=== PATIENT | female | born 1940 | race Caucasian/White ===

== ENCOUNTER → 2016-03-07 | Outpatient (CLI) | payer MEDICARE, OTHER ==
[~2016-03-07] MED LIST: ACET500C PO; ALEN70TA39 PO; ASPI81TA60 PO; ATEN25TA PO; AUGM500T34 PO; CALC600T10 PO; IBUPOTC PO; LEVO50TA45 PO; MULTCHW13 PO; PRIM50TA6 PO; QUET1TAB7 PO; SIMV20TA2 PO; SYNT50TA PO; VIAC8.5C PO; VICO5TAB16 PO; VITA100037 PO; VITMTA PO
--- NOTE | 2016-03-08 11:11 | REP ---
Left rib series and PA chest: There are no comparisons. Left rib series four views: There is no rib fracture or other rib abnormality. PA chest: There are no comparisons. There is no pneumothorax, hemothorax or pulmonary contusion. There are no infiltrates or effusions. The lung bone are clear. Cardiac size is normal. The surya and mediastinum are unremarkable. There is diffuse demineralization. There is thoracic scoliosis convex right at the thoracolumbar junction. Impression: No acute cardiopulmonary findings. Signed by Jaleel Greenwood MD 03/07/2016 10:33 A
== END ==
LOC: M ADAMS 09:52
PROVIDERS: ATTEND Physician Assistant Medical
DX: S20.212A Contusion of left front wall of thorax, initial encounter (principal); X58.XXXA Exposure to other specified factors, initial encounter; Y93.9 Activity, unspecified; Y92.9 Unspecified place or not applicable; Y99.8 Other external cause status

== ENCOUNTER → 2016-04-08 | Outpatient (REF) | payer MEDICARE, OTHER | LOC: M LAB REF 10:31 | PROVIDERS: ATTEND Ophthalmology | DX: S01.102A Unspecified open wound of left eyelid and periocular area, initial encounter (principal); X58.XXXA Exposure to other specified factors, initial encounter; Y93.9 Activity, unspecified; Y92.9 Unspecified place or not applicable; Y99.8 Other external cause status ==

== ENCOUNTER → 2016-04-13 | Outpatient (REF) | payer MEDICARE, OTHER ==
[2016-04-13 13:06] LABS: ALBUMIN 3.7 GM/DL (3.2-5.2); ALBUMIN/GLOBULIN RATIO 1.12 (1.00-1.93); ALKALINE PHOSPHATASE 87 U/L (45-117); ALT/SGPT 22 U/L (12-78); ANION GAP 11 MEQ/L (8-16); AST/SGOT 23 U/L (15-37); BILIRUBIN,TOTAL 0.3 MG/DL (0.2-1.0); BLOOD UREA NITROGEN 17 MG/DL (7-18); CALCIUM LEVEL 9.1 MG/DL (8.8-10.2); CARBON DIOXIDE LEVEL 28 MEQ/L (21-32); CHLORIDE LEVEL 105 MEQ/L (98-107); CHOLESTEROL LEVEL 170 MG/DL (<200); CREATININE FOR GFR 0.76 MG/DL (0.55-1.02); GLOMERULAR FILTRATION RATE > 60.0 (>39); GLUCOSE, FASTING 99 MG/DL (83-110); POTASSIUM SERUM 4.3 MEQ/L (3.5-5.1); SODIUM LEVEL 144 MEQ/L (136-145); TRIGLYCERIDES LEVEL 96 MG/DL (<150)
== END ==
LOC: M SFHCADAM 08:32
PROVIDERS: ATTEND Physician Assistant Medical
DX: E78.4 Other hyperlipidemia (principal); R73.01 Impaired fasting glucose; E03.9 Hypothyroidism, unspecified

== ENCOUNTER → 2016-06-08 | Outpatient (REF) | payer MEDICARE, OTHER | LOC: M LAB REF 14:30 | PROVIDERS: ATTEND Ophthalmology | DX: H02.831 Dermatochalasis of right upper eyelid (principal); H02.834 Dermatochalasis of left upper eyelid ==

== ENCOUNTER → 2016-07-12 | Outpatient (REF) | payer MEDICARE, OTHER ==
[2016-07-12 14:25] LABS: FREE T4 1.11 NG/DL (0.76-1.46)
== END ==
LOC: M LABDRWAD 12:41
PROVIDERS: ATTEND Internal Medicine Endocrinology, Diabetes & Metabolism
DX: E03.9 Hypothyroidism, unspecified (principal)

== ENCOUNTER → 2016-08-09 | Outpatient (CLI) | payer MEDICARE, OTHER ==
[~2016-08-09] MED LIST changes: -CALC600T10 PO; +CALC600T31 PO; -MULTCHW13 PO; +MULTCHW14 PO; -VITA100037 PO; +VITA100067 PO
[2016-08-09 13:09] LABS: CALCIUM LEVEL 9.3 MG/DL (8.8-10.2)
== END ==
LOC: M WUC 09:38
PROVIDERS: ATTEND Internal Medicine Endocrinology, Diabetes & Metabolism
DX: M81.0 Age-related osteoporosis without current pathological fracture (principal); E55.9 Vitamin D deficiency, unspecified

== ENCOUNTER → 2016-12-20 | Outpatient (REF) | payer MEDICARE, OTHER ==
[2016-12-20 21:33] LABS: BASO % 0.7 % (0.0-1.0); EOS # 0.1 10^3/uL (0.0-0.50); IMMATURE GRANULOCYTE % 0.2 % (0-0); LYMPH # 1.7 10^3/uL (1.5-4.5); LYMPH % 29.8 % (24.0-44.0); MEAN CORPUSCULAR HEMOGLOBIN 31.5 pg (27.0-33.0); MEAN CORPUSCULAR HGB CONC 32.3 g/dl (32.0-36.5); MEAN CORPUSCULAR VOLUME 97.6 fl (80.0-96.0); MONO # 0.3 10^3/uL (0.0-0.8); MONO % 5.5 % (0.0-5.0); NEUTROPHILS # 3.6 10^3/uL (1.8-7.7); NEUTROPHILS % 62.8 % (36.0-66.0); PLATELET COUNT, AUTOMATED 274 10^3/uL (150-450); RED CELL DISTRIBUTION WIDTH 13.2 % (11.5-14.5); WHITE BLOOD COUNT 5.8 10^3/uL (4.0-10.0)
[2016-12-20 21:36] LABS: ALBUMIN 4.1 GM/DL (3.2-5.2); ALBUMIN/GLOBULIN RATIO 1.24 (1.00-1.93); ALKALINE PHOSPHATASE 79 U/L (45-117); ALT/SGPT 26 U/L (12-78); ANION GAP 4 MEQ/L (8-16); AST/SGOT 24 U/L (7-37); BILIRUBIN,TOTAL 0.3 MG/DL (0.2-1.0); BLOOD UREA NITROGEN 23 MG/DL (7-18); CALCIUM LEVEL 9.6 MG/DL (8.8-10.2); CARBON DIOXIDE LEVEL 31 MEQ/L (21-32); CHLORIDE LEVEL 107 MEQ/L (98-107); CREATININE FOR GFR 0.61 MG/DL (0.55-1.02); GLOMERULAR FILTRATION RATE > 60.0 (>39); GLUCOSE, FASTING 102 MG/DL (83-110); POTASSIUM SERUM 4.6 MEQ/L (3.5-5.1); SODIUM LEVEL 142 MEQ/L (136-145); TOTAL PROTEIN 7.4 GM/DL (6.4-8.2)
== END ==
LOC: M LAB REF 09:40
PROVIDERS: ATTEND Psychiatry & Neurology Neurology
DX: G25.0 Essential tremor (principal)

== ENCOUNTER → 2016-12-21 | Outpatient (REF) | payer MEDICARE, OTHER | LOC: M LAB REF 10:02 | PROVIDERS: ATTEND Internal Medicine Medical Oncology | DX: D47.2 Monoclonal gammopathy (principal); E83.52 Hypercalcemia ==

== ENCOUNTER → 2017-01-11 | Outpatient (REF) | payer MEDICARE, OTHER ==
[2017-01-11 12:35] LABS: BASO % 0.8 % (0.0-1.0); EOS # 0.1 10^3/uL (0.0-0.50); EOS % 1.2 % (0.0-3.0); IMMATURE GRANULOCYTE % 0.2 % (0-0); LYMPH # 2.2 10^3/uL (1.5-4.5); LYMPH % 42.9 % (24.0-44.0); MEAN CORPUSCULAR HEMOGLOBIN 31.5 pg (27.0-33.0); MEAN CORPUSCULAR HGB CONC 33.1 g/dl (32.0-36.5); MEAN CORPUSCULAR VOLUME 95.1 fl (80.0-96.0); MONO # 0.3 10^3/uL (0.0-0.8); MONO % 4.9 % (0.0-5.0); NEUTROPHILS # 2.6 10^3/uL (1.8-7.7); PLATELET COUNT, AUTOMATED 265 10^3/uL (150-450); RED CELL DISTRIBUTION WIDTH 12.4 % (11.5-14.5); WHITE BLOOD COUNT 5.2 10^3/uL (4.0-10.0)
[2017-01-11 13:12] LABS: ALBUMIN 3.9 GM/DL (3.2-5.2); ALBUMIN/GLOBULIN RATIO 1.11 (1.00-1.93); ALKALINE PHOSPHATASE 83 U/L (45-117); ALT/SGPT 25 U/L (12-78); ANION GAP 6 MEQ/L (8-16); AST/SGOT 25 U/L (7-37); BILIRUBIN,TOTAL 0.2 MG/DL (0.2-1.0); BLOOD UREA NITROGEN 23 MG/DL (7-18); CALCIUM LEVEL 9.5 MG/DL (8.8-10.2); CARBON DIOXIDE LEVEL 32 MEQ/L (21-32); CHLORIDE LEVEL 107 MEQ/L (98-107); CHOLESTEROL LEVEL 209 MG/DL (<200); CREATININE FOR GFR 0.66 MG/DL (0.55-1.02); FREE T4 0.96 NG/DL (0.76-1.46); GLOMERULAR FILTRATION RATE > 60.0 (>39); GLUCOSE, FASTING 95 MG/DL (83-110); POTASSIUM SERUM 4.3 MEQ/L (3.5-5.1); SODIUM LEVEL 145 MEQ/L (136-145); TOTAL PROTEIN 7.4 GM/DL (6.4-8.2); TRIGLYCERIDES LEVEL 89 MG/DL (<150)
== END ==
LOC: M SFHCADAM 09:46
PROVIDERS: ATTEND Physician Assistant Medical
DX: M81.0 Age-related osteoporosis without current pathological fracture (principal); E03.9 Hypothyroidism, unspecified; E78.4 Other hyperlipidemia; R73.01 Impaired fasting glucose

== ENCOUNTER → 2017-02-17 | Outpatient (REF) | payer MEDICARE, OTHER ==
[2017-02-17 15:36] LABS: CALCIUM LEVEL 9.3 MG/DL (8.8-10.2)
== END ==
LOC: M LABDRAW1 15:17
DX: M81.0 Age-related osteoporosis without current pathological fracture (principal)
CPT/HCPCS: 82310

== ENCOUNTER → 2017-06-27 | Outpatient (REF) | payer MEDICARE, OTHER ==
[2017-06-27 14:00] LABS: FREE T4 1.15 NG/DL (0.76-1.46)
== END ==
LOC: M LABDRWAD 13:08
DX: E03.9 Hypothyroidism, unspecified (principal)
CPT/HCPCS: 84443

== ENCOUNTER → 2017-08-11 | Outpatient (REF) | payer MEDICARE, OTHER ==
[2017-08-11 19:39] LABS: ALBUMIN 3.8 GM/DL (3.2-5.2); ALBUMIN/GLOBULIN RATIO 1.27 (1.00-1.93); ALKALINE PHOSPHATASE 71 U/L (45-117); ALT/SGPT 21 U/L (12-78); ANION GAP 10 MEQ/L (8-16); AST/SGOT 21 U/L (7-37); BILIRUBIN,TOTAL 0.3 MG/DL (0.2-1.0); BLOOD UREA NITROGEN 17 MG/DL (7-18); CALCIUM LEVEL 8.9 MG/DL (8.8-10.2); CARBON DIOXIDE LEVEL 26 MEQ/L (21-32); CHLORIDE LEVEL 108 MEQ/L (98-107); CREATININE FOR GFR 0.69 MG/DL (0.55-1.30); FREE T4 1.17 NG/DL (0.76-1.46); GLOMERULAR FILTRATION RATE > 60.0 (>39); GLUCOSE, FASTING 90 MG/DL (70-100); POTASSIUM SERUM 4.1 MEQ/L (3.5-5.1); SODIUM LEVEL 144 MEQ/L (136-145); THYROID STIMULATING HORMONE 0.905 uIU/ML (0.358-3.740); TOTAL PROTEIN 6.8 GM/DL (6.4-8.2)
[2017-08-11 19:52] LABS: ESTIMATED AVERAGE GLUCOSE 103 MG/DL (60-110); HEMOGLOBIN A1c 5.2 %
[2017-08-11 19:56] LABS: TOTAL 25(OH) VITAMIN D 50.4 NG/ML (30.0-100.0)
== END ==
LOC: M SFHCADAM 13:17
DX: E03.9 Hypothyroidism, unspecified (principal); R73.01 Impaired fasting glucose; Z79.899 Other long term (current) drug therapy
CPT/HCPCS: 84443

== ENCOUNTER → 2017-08-18 | Outpatient (REF) | payer MEDICARE, OTHER ==
[2017-08-18 16:29] LABS: TOTAL 25(OH) VITAMIN D 55.5 NG/ML (30.0-100.0)
[2017-08-19 13:12] LABS: CALCIUM LEVEL 8.9 MG/DL (8.8-10.2)
== END ==
LOC: M LABDRAW1 15:31
DX: M81.0 Age-related osteoporosis without current pathological fracture (principal); E55.9 Vitamin D deficiency, unspecified
CPT/HCPCS: 82310

== ENCOUNTER → 2017-09-13 | Outpatient (CLI) | payer MEDICARE, OTHER ==
[2017-09-13 11:05] LABS: BASO % 0.7 % (0.0-1.0); EOS # 0.1 10^3/uL (0.0-0.50); EOS % 1.7 % (0.0-3.0); HEMATOCRIT 38.8 % (36.0-47.0); HEMOGLOBIN 12.9 g/dl (12.0-15.5); IMMATURE GRANULOCYTE % 0.2 % (0-3.0); LYMPH # 1.9 10^3/uL (1.5-4.5); LYMPH % 35.4 % (24.0-44.0); MEAN CORPUSCULAR HEMOGLOBIN 31.2 pg (27.0-33.0); MEAN CORPUSCULAR HGB CONC 33.2 g/dl (32.0-36.5); MEAN CORPUSCULAR VOLUME 93.7 fl (80.0-96.0); MONO # 0.3 10^3/uL (0.0-0.8); MONO % 5.2 % (0.0-5.0); NEUTROPHILS # 3.1 10^3/uL (1.8-7.7); NEUTROPHILS % 56.8 % (36.0-66.0); PLATELET COUNT, AUTOMATED 249 10^3/uL (150-450); RED BLOOD COUNT 4.14 10^6/uL (4.00-5.40); RED CELL DISTRIBUTION WIDTH 12.3 % (11.5-14.5); WHITE BLOOD COUNT 5.4 10^3/uL (4.0-10.0)
[2017-09-13 11:28] LABS: TOTAL PROTEIN,RANDOM URINE 12.4 MG/DL (0.0-12.0); URINE TOTAL PROTEIN 12.4 MG/DL (0-12)
[2017-09-13 12:04] LABS: ALBUMIN 3.9 GM/DL (3.2-5.2); ALKALINE PHOSPHATASE 71 U/L (45-117); ALT/SGPT 21 U/L (12-78); ANION GAP 7 MEQ/L (8-16); AST/SGOT 20 U/L (7-37); BILIRUBIN,TOTAL 0.3 MG/DL (0.2-1.0); BLOOD UREA NITROGEN 18 MG/DL (7-18); CALCIUM LEVEL 8.4 MG/DL (8.8-10.2); CARBON DIOXIDE LEVEL 28 MEQ/L (21-32); CHLORIDE LEVEL 108 MEQ/L (98-107); CREATININE FOR GFR 0.66 MG/DL (0.55-1.30); GLOMERULAR FILTRATION RATE > 60.0 (>39); GLUCOSE, FASTING 95 MG/DL (70-100); IMMUNOGLOBULIN A 54.2 MG/DL (70-400); IMMUNOGLOBULIN G 921 MG/DL (681-1648); SODIUM LEVEL 143 MEQ/L (136-145); TOTAL PROTEIN 6.9 GM/DL (6.4-8.2)
[2017-09-14 12:01] LABS: ALBUMIN 4.27 GM/DL (3.29-5.55); ALBUMIN % 61.9 % (55.8-66.1); ALPHA-1-GLOBULIN % 4.1 % (2.9-4.9); ALPHA-1-GLOBULINS 0.28 GM/DL (0.17-0.41); ALPHA-2-GLOBULINS % 11.1 % (7.1-11.8); BETA-1-GLOBULINS % 5.6 % (4.7-7.2); BETA-2-GLOBULINS % 3.8 % (3.2-6.5); GAMMA GLOBULIN % 13.5 % (11.1-18.8)
[2017-09-14 12:02] LABS: ALPHA-2-GLOBULINS 0.77 GM/DL (0.42-0.99); BETA-1-GLOBULINS 0.39 GM/DL (0.28-0.60); BETA-2-GLOBULINS 0.26 GM/DL (0.19-0.55); GAMMA GLOBULINS 0.93 GM/DL (0.65-1.58)
[2017-09-15 00:13] LABS: FREE KAPPA LIGHT CHAINS SERUM 10.6 mg/L (3.3-19.4); FREE LAMBDA LIGHT CHAINS SERUM 40.6 mg/L (5.7-26.3); KAPPA/LAMBDA RATIO SERUM 0.26 (0.26-1.65)
[2017-09-15 15:02] LABS: UPEP INTERPRETATION M-SPIKE IN B2 & GAMM; URINE VOLUME 1000 ML
[2017-09-15 15:07] LABS: IMMUNOTYPE URINE IgG ABNORMAL (NORMAL); IMMUNOTYPE URINE LAMBDA ABNORMAL (NORMAL)
== END ==
LOC: M LAB 09:44
DX: C90.00 Multiple myeloma not having achieved remission (principal)
CPT/HCPCS: 84165

== ENCOUNTER → 2017-10-14 | Outpatient (REF) | payer MEDICARE, OTHER ==
[2017-10-14 21:53] LABS: VITAMIN B12 LEVEL 654 PG/ML (247-911)
== END ==
LOC: M SFHCADAM 13:31
DX: R20.2 Paresthesia of skin (principal)
CPT/HCPCS: 82607

== ENCOUNTER → 2018-01-09 | Outpatient (REF) | payer MEDICARE, OTHER ==
[2018-01-09 14:32] LABS: FREE T4 1.14 NG/DL (0.76-1.46)
== END ==
LOC: M LABDRWAD 12:26
DX: E03.9 Hypothyroidism, unspecified (principal)
CPT/HCPCS: 84443

== ENCOUNTER → 2018-02-20 | Outpatient (REF) | payer MEDICARE, OTHER ==
[~2018-02-20] MED LIST changes: -ALEN70TA39 PO; +ALEN70TA57 PO
[2018-02-20 12:55] LABS: CALCIUM LEVEL 9.7 MG/DL (8.8-10.2)
[2018-02-20 13:11] LABS: TOTAL 25(OH) VITAMIN D 73.5 NG/ML (30.0-100.0)
== END ==
LOC: M LABDRAW1 10:34
PROVIDERS: ATTEND Internal Medicine Endocrinology, Diabetes & Metabolism
DX: M81.0 Age-related osteoporosis without current pathological fracture (principal); E55.9 Vitamin D deficiency, unspecified

== ENCOUNTER → 2018-07-21 | Outpatient (REF) | payer MEDICARE, OTHER ==
[~2018-07-21] MED LIST changes: -ALEN70TA57 PO; +ALEN70TA74 PO; -VICO5TAB16 PO; +VICO5TAB17 PO
[2018-07-21 16:23] LABS: FREE T4 0.99 NG/DL (0.76-1.46); THYROID STIMULATING HORMONE 1.05 uIU/ML (0.358-3.740)
== END ==
LOC: M LABDRWAD 15:25
PROVIDERS: ATTEND Internal Medicine Endocrinology, Diabetes & Metabolism
DX: E03.9 Hypothyroidism, unspecified (principal)
CPT/HCPCS: 84439; 84443; G0463

== ENCOUNTER → 2018-08-16 | Outpatient (CLI) | payer MEDICARE, OTHER ==
[~2018-08-16] MED LIST changes: -VIAC8.5C PO; +VIACTIV 500-5001 CHW PO
--- NOTE | 2018-08-16 16:44 | REP ---
Maxillofacial CT study without contrast: History: Arthralgia of the TMJ. Left-sided symptoms. No comparison imaging. Findings: No bony destructive lesion is seen in the mandible or maxilla. There are osteoarthritic changes with joint space narrowing in the superior and posterior aspects of the temporomandibular joints bilaterally. No cystic changes or erosive changes are seen. 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 The maxillary ethmoidal, sphenoidal and frontal sinuses are clear. Mastoid aeration is normal and symmetric. No intraorbital abnormality is seen. There is mild generalized volume loss intracranially. Impression: Mild osteoarthritic changes at the temporomandibular joints bilaterally. No erosive or bony destructive lesion is seen. Electronically Signed by Catalino Cerna MD 08/16/2018 04:36 P
== END ==
LOC: M RAD 15:33
PROVIDERS: ATTEND Otolaryngology
DX: M26.622 Arthralgia of left temporomandibular joint (principal)

== ENCOUNTER → 2018-08-29 | Outpatient (REF) | payer MEDICARE, OTHER | LOC: M LABDRWAD 09:18 | PROVIDERS: ATTEND Nurse Practitioner Family | DX: M81.0 Age-related osteoporosis without current pathological fracture (principal) ==

== ENCOUNTER → 2018-09-04 | Outpatient (REF) | payer MEDICARE, OTHER ==
[~2018-09-04] MED LIST changes: +ASPI81CH17 PO; +CALCTAB7 PO; +MOBI15TA PO
[2018-09-04 19:16] LABS: BASO % 0.6 % (0.0-1.0); EOS # 0.1 10^3/uL (0.0-0.50); EOS % 1.5 % (0.0-3.0); HEMATOCRIT 39.5 % (36.0-47.0); HEMOGLOBIN 13.2 g/dl (12.0-15.5); LYMPH # 2.1 10^3/uL (1.5-4.5); LYMPH % 38.7 % (24.0-44.0); MEAN CORPUSCULAR HEMOGLOBIN 31.2 pg (27.0-33.0); MEAN CORPUSCULAR HGB CONC 33.4 g/dl (32.0-36.5); MEAN CORPUSCULAR VOLUME 93.4 fl (80.0-96.0); MONO # 0.4 10^3/uL (0.0-0.8); MONO % 6.8 % (0.0-5.0); NEUTROPHILS # 2.8 10^3/uL (1.8-7.7); NEUTROPHILS % 52.2 % (36.0-66.0); PLATELET COUNT, AUTOMATED 308 10^3/uL (150-450); RED BLOOD COUNT 4.23 10^6/uL (4.00-5.40); WHITE BLOOD COUNT 5.3 10^3/uL (4.0-10.0)
[2018-09-04 19:37] LABS: HEMOGLOBIN A1c 5.8 %
[2018-09-04 19:46] LABS: ALBUMIN 3.9 GM/DL (3.2-5.2); ALT/SGPT 17 U/L (12-78); BILIRUBIN,TOTAL 0.2 MG/DL (0.2-1.0); BLOOD UREA NITROGEN 15 MG/DL (7-18); CALCIUM LEVEL 8.8 MG/DL (8.8-10.2); CARBON DIOXIDE LEVEL 27 MEQ/L (21-32); CHLORIDE LEVEL 109 MEQ/L (98-107); CHOLESTEROL LEVEL 207 MG/DL (<200); CHOLESTEROL RISK RATIO 2.797 (<5); CREATININE FOR GFR 0.78 MG/DL (0.55-1.30); FREE T4 1.18 NG/DL (0.76-1.46); GLOMERULAR FILTRATION RATE > 60.0 (>39); GLUCOSE, FASTING 90 MG/DL (70-100); HDL CHOLESTEROL 74 MG/DL (>40); LDL CHOLESTEROL 109 MG/DL (<100); NON-HDL-C 133 MG/DL; POTASSIUM SERUM 4.2 MEQ/L (3.5-5.1); SODIUM LEVEL 143 MEQ/L (136-145); TOTAL PROTEIN 7.1 GM/DL (6.4-8.2); TRIGLYCERIDES LEVEL 120 MG/DL (<150)
== END ==
LOC: M SFHCADAM 15:51
PROVIDERS: ATTEND Physician Assistant Medical
DX: E03.9 Hypothyroidism, unspecified (principal); R73.01 Impaired fasting glucose; E78.49 Other hyperlipidemia
CPT/HCPCS: 80053; 80061; 83036; 84439; 84443; 85025; G0463

== ENCOUNTER → 2018-09-15 | Outpatient (CLI) | payer MEDICARE, OTHER ==
[~2018-09-15] MED LIST changes: +MACR100C43 PO; -SIMV20TA2 PO; +SIMV20TA22 PO
--- NOTE | 2018-09-15 15:53 | REP ---
RENAL AND BLADDER ULTRASOUND: Real-time sonographic evaluation of kidneys was performed and demonstrates both kidneys to be normal in size with somewhat increased echotexture suggesting medical renal disease. There is no hydronephrosis bilaterally. Right kidney measures 10.2 x 4.3 x 4.5 cm and left kidney 10.0 x 4.6 x 4.4 cm. There are approximately 4 small cysts in the lower aspect of the right kidney, largest measures 1.3 cm in diameter. There is a 4 mm cyst in the upper left kidney. Two subcentimeter cysts are seen in the lower left kidney, the larger 9 mm in diameter. There appears to be a 4 mm intrarenal calculus in the lower left kidney. Urinary bladder is not well distended and not well evaluated. IMPRESSION: Increased echotexture of the kidneys suggest medical renal disease. No hydronephrosis. Bilateral renal cysts. Left renal calculus. Electronically Signed by Jaleel Benites MD 09/18/2018 11:18 A
== END ==
LOC: M RAD 09:19
PROVIDERS: ATTEND Physician Assistant Medical
DX: N20.0 Calculus of kidney (principal); N28.1 Cyst of kidney, acquired

== ENCOUNTER → 2018-09-18 | Outpatient (REF) | payer MEDICARE, OTHER ==
[~2018-09-18] MED LIST changes: -ASPI81CH17 PO; -CALCTAB7 PO; -MACR100C43 PO; -MOBI15TA PO; +SIMV20TA2 PO; -SIMV20TA22 PO
[2018-09-18 13:46] LABS: HEMATOCRIT 40.8 % (36.0-47.0); HEMOGLOBIN 13.6 g/dl (12.0-15.5); MEAN CORPUSCULAR HEMOGLOBIN 31.3 pg (27.0-33.0); MEAN CORPUSCULAR HGB CONC 33.3 g/dl (32.0-36.5); MEAN CORPUSCULAR VOLUME 93.8 fl (80.0-96.0); PLATELET COUNT, AUTOMATED 277 10^3/uL (150-450); RED BLOOD COUNT 4.35 10^6/uL (4.00-5.40); WHITE BLOOD COUNT 4.5 10^3/uL (4.0-10.0)
[2018-09-18 16:17] LABS: ALBUMIN 3.8 GM/DL (3.2-5.2); ALT/SGPT 16 U/L (12-78); BILIRUBIN,TOTAL 0.2 MG/DL (0.2-1.0); BLOOD UREA NITROGEN 16 MG/DL (7-18); CARBON DIOXIDE LEVEL 29 MEQ/L (21-32); CHLORIDE LEVEL 107 MEQ/L (98-107); CREATININE FOR GFR 0.66 MG/DL (0.55-1.30); GLOMERULAR FILTRATION RATE > 60.0 (>39); GLUCOSE, FASTING 101 MG/DL (70-100); IMMUNOGLOBULIN A 49.4 MG/DL (70-400); IMMUNOGLOBULIN E 3.7 IU/ML (<100); IMMUNOGLOBULIN G 975 MG/DL (681-1648); IMMUNOGLOBULIN M 20.9 MG/DL (40-230); POTASSIUM SERUM 4.3 MEQ/L (3.5-5.1); SODIUM LEVEL 142 MEQ/L (136-145); TOTAL PROTEIN 6.7 GM/DL (6.4-8.2)
[2018-09-19 14:36] LABS: ALBUMIN 4.01 GM/DL (3.29-5.55); ALBUMIN % 59.9 % (55.8-66.1); ALPHA-1-GLOBULIN % 4.5 % (2.9-4.9); ALPHA-2-GLOBULINS 0.79 GM/DL (0.42-0.99); ALPHA-2-GLOBULINS % 11.8 % (7.1-11.8); BETA-1-GLOBULINS % 5.9 % (4.7-7.2); BETA-2-GLOBULINS % 4.4 % (3.2-6.5); GAMMA GLOBULIN % 13.5 % (11.1-18.8)
[2018-09-19 14:37] LABS: BETA-2-GLOBULINS 0.29 GM/DL (0.19-0.55)
[2018-09-20 00:09] LABS: FREE LAMBDA LIGHT CHAINS SERUM 72.2 mg/L (5.7-26.3); KAPPA/LAMBDA RATIO SERUM 0.18 (0.26-1.65)
== END ==
LOC: M LAB 11:32
PROVIDERS: ATTEND Internal Medicine Medical Oncology
DX: Z00.00 Encounter for general adult medical examination without abnormal findings (principal)

== ENCOUNTER → 2018-09-18 | Outpatient (CLI) | payer MEDICARE, OTHER | LOC: M LAB 10:38 | PROVIDERS: ATTEND Physician Assistant Medical | DX: E03.9 Hypothyroidism, unspecified (principal); E78.5 Hyperlipidemia, unspecified; R73.01 Impaired fasting glucose ==

== ENCOUNTER → 2018-11-08 | Outpatient (CLI) | payer MEDICARE, OTHER ==
[~2018-11-08] MED LIST changes: +ASPI81CH17 PO; +CALCTAB7 PO; +MACR100C43 PO; +MOBI15TA PO
--- NOTE | 2018-11-08 13:56 | REPMRS ---
Patient History The patient states she has not had a clinical breast exam in over a year. Family history of breast cancer at age 70 in mother, breast cancer at age 80 in maternal aunt, breast cancer at age 50 or over in paternal aunt, breast cancer at age 50 or over in maternal cousin. Took hormonal contraceptives for 2 years. 3D TOMOSYNTHESIS WAS PERFORMED. [facility] lifetime risk for breast cancer is 10.3%. Digital Woman Screen Mammo: November 08, 2018 - Exam #: [id number] Bilateral CC and MLO view(s) were taken. Technologist: Shalini Moralez, Technologist Prior study comparison: July 09, 2013, bilateral bilat screen digital mammo, performed at [facility] ([facility]). July 06, 2012, bilateral bilat screen digital mammo, performed at [facility] ([facility]). FINDINGS: The breast tissue is heterogeneously dense. This may lower the sensitivity of mammography. There has been no change in the appearance of the mammogram from the prior studies. There is a moderate amount of residual fibroglandular tissue which is fairly symmetric. There is no interval development of dominant mass, areas of architectural distortion, or clustered microcalcification typical of malignancy. Assessment: BI-RADS/ACR category 1 mammogram. Negative Mammogram. Recommendation Routine screening mammogram in 1 year (for women over age 40). This mammogram was interpreted with the aid of an FDA-approved computer-aided dectection system. Electronically Signed By: Jaleel Benites MD 11/08/18 [id number]
--- NOTE | 2018-11-10 14:18 | DEXA ---
AP SPINE L1 - L4 0.734 -3.7 -1.9 LT FEMUR TOTAL 0.618 -3.1 -1.3 LT NECK 0.566 -3.4 -1.4 RT FEMUR TOTAL 0.589 -3.3 -1.5 RT NECK 0.565 -3.4 -1.4 TOTAL BODY TOTAL OTHER COMMENTS: There is osteoporosis of the spine and hips. The decreased density of the spine does not represent a significant change. The increased density of the left hip does represent a significant change. The decreased density of the right hip does not represent a significant change. The density of the spine has increased 6.7% since the initial exam on 10/07/2009. The spine density has decreased 0.5% since the most recent exam on 10/26/2011. The density of the left hip has increased 2.8% since the initial exam on 10/07/2009. The density of the left hip has increased 2.5% since the most recent exam on 10/26/2011. The density of the right hip has increased 4.8% since the initial exam on 10/07/2009. The density of the right hip has decreased 0.7% since the most recent exam on 10/26/2011. FOLLOW-UP: Recommendation for the next bone density exam: 2 years. EVA
== END ==
LOC: M WHC 10:53
PROVIDERS: ATTEND Physician Assistant Medical
DX: Z12.31 Encounter for screening mammogram for malignant neoplasm of breast (principal); Z80.3 Family history of malignant neoplasm of breast; M81.0 Age-related osteoporosis without current pathological fracture

== ENCOUNTER 2018-11-13 14:48 | Emergency (ER) | payer MEDICARE, OTHER ==
[~2018-11-13] VITALS: Ht 149.9 cm; Wt 52.9 kg
[~2018-11-13 14:48] MED LIST changes: -MACR100C43 PO
[2018-11-13 16:54] LABS: BASO # 0.1 10^3/uL (0.0-0.2); BASO % 0.8 % (0.0-1.0); EOS # 0.1 10^3/uL (0.0-0.5); EOS % 1.4 % (0.0-3.0); HEMATOCRIT 42.6 % (36.0-47.0); HEMOGLOBIN 14.3 g/dl (12.0-15.5); LYMPH # 1.8 10^3/uL (1.5-5.0); LYMPH % 26.8 % (24.0-44.0); MEAN CORPUSCULAR HEMOGLOBIN 31.8 pg (27.0-33.0); MEAN CORPUSCULAR HGB CONC 33.6 g/dl (32.0-36.5); MEAN CORPUSCULAR VOLUME 94.7 fl (80.0-96.0); MONO # 0.4 10^3/uL (0.0-0.8); MONO % 6.1 % (0.0-5.0); NEUTROPHILS # 4.2 10^3/uL (1.5-8.5); NEUTROPHILS % 64.6 % (36.0-66.0); PLATELET COUNT, AUTOMATED 314 10^3/uL (150-450); WHITE BLOOD COUNT 6.5 10^3/uL (4.0-10.0)
[2018-11-13 17:13] LABS: GLUCOSE, URINE (UA) MANUAL NEGATIVE (NEGATIVE); KETONE, URINE MANUAL NEGATIVE (NEGATIVE); UROBILINOGEN, URINE MANUAL NORMAL (NORMAL)
[2018-11-13 17:14] LABS: BILIRUBIN, URINE MANUAL NEGATIVE (NEGATIVE)
[2018-11-13 17:17] LABS: BACTERIA, URINE SMALL AMOUNT; HYALINE CAST, URINE NONE SEEN /lpf (0-1); RBC, URINE NONE SEEN /hpf (0-3); SQUAMOUS EPITHELIAL CELL URINE SMALL AMOUNT /hpf (SMALL AMT)
[2018-11-13 17:20] LABS: ALBUMIN 3.7 GM/DL (3.2-5.2); ALT/SGPT 22 U/L (12-78); BILIRUBIN,DIRECT < 0.1 MG/DL (0.0-0.2); BILIRUBIN,TOTAL 0.1 MG/DL (0.2-1.0); BLOOD UREA NITROGEN 17 MG/DL (7-18); CALCIUM LEVEL 8.7 MG/DL (8.8-10.2); CARBON DIOXIDE LEVEL 29 MEQ/L (21-32); CHLORIDE LEVEL 107 MEQ/L (98-107); GLOMERULAR FILTRATION RATE > 60.0 (>39); GLUCOSE, FASTING 100 MG/DL (70-100); LIPASE 110 U/L (73-393); POTASSIUM SERUM 4.3 MEQ/L (3.5-5.1); SODIUM LEVEL 144 MEQ/L (136-145)
--- NOTE | 2018-11-13 19:45 | REPVR ---
PROCEDURE INFORMATION: Exam: CT Abdomen And Pelvis Without Contrast Exam date and time: 11/13/2018 6:01 PM Clinical history: 77 years old, female; Abdominal pain; Additional info: R flank/rlq pain TECHNIQUE: Imaging protocol: Computed tomography of the abdomen and pelvis without contrast. Radiation optimization: All CT scans at this facility use at least one of these dose optimization techniques: automated exposure control; mA and/or kV adjustment per patient size (includes targeted exams where dose is matched to clinical indication); or iterative reconstruction. COMPARISON: CT ABD PELVIS W/O CONTRAST 03/29/2015 8:20 PM FINDINGS: Liver: Normal. No mass. Gallbladder and bile ducts: Normal. No calcified stones. No ductal dilation. Pancreas: Calcification in the pancreatic head. Spleen: Normal. No splenomegaly. Adrenals: Normal. No mass. Kidneys and ureters: 2 mm nonobstructing calculi at the lower pole of bilateral kidneys. Stomach and bowel: Unremarkable. No obstruction. No mucosal thickening. Appendix: No evidence of appendicitis. Intraperitoneal space: Unremarkable. No free air. No significant fluid collection. Vasculature: Unremarkable. No abdominal aortic aneurysm. Lymph nodes: Unremarkable. No enlarged lymph nodes. Bladder: Unremarkable as visualized. Reproductive: Unremarkable as visualized. Bones/joints: Unremarkable. No acute fracture. Soft tissues: Unremarkable. IMPRESSION: No acute abdominal or pelvic abnormality. Electronically signed by: Isrrael Munguia On 11/13/2018 19:45:37 PM
[2018-11-13] MEDS ORDERED: MACR100C43 PO (20:00)
[2018-11-13 20:09] VITALS: BP 117/61
== END 2018-11-13 20:10 | disposition home or self-care (01) ==
LOC: M ED 14:48
DX: N39.0 Urinary tract infection, site not specified (principal); I10 Essential (primary) hypertension; E78.5 Hyperlipidemia, unspecified; Z87.442 Personal history of urinary calculi; Z88.2 Allergy status to sulfonamides; Z91.018 Allergy to other foods; Z91.040 Latex allergy status; Z79.899 Other long term (current) drug therapy

== ENCOUNTER → 2018-12-29 | Outpatient (CLI) | payer MEDICARE, OTHER ==
[~2018-12-29] MED LIST changes: +MACR100C43 PO; -SIMV20TA2 PO; +SIMV20TA22 PO
--- NOTE | 2019-01-17 04:18 | ECWPNPC ---
PATIENT NAME: REMY CHATTERJEE : 1940 GENDER: FEMALE VISIT DATE: 12/29/2018 DISCHARGE DATE: 12/29/18 1221 VISIT LOCKED DATE TIME: PHYSICIAN: ALTHEA GILLESPIE MD RESOURCE: ALTHEA GILLESPIE MD REASON FOR APPOINTMENT 1. LOW BACK PAIN HISTORY OF PRESENT ILLNESS PAIN SCREENING: PATIENT HAS A COMPLAINT OF ACUTE OR CHRONIC PAIN :YES 78 YEAR OLD FEMALE PATIENT WITH A HISTORY OF CHRONIC LOW BACK AND LEG PAIN. THE PATIENT DESCRIBES THE PAIN ACHING, SHOOTING, INTERMITTENT, AND CONTINUOUS WITH A PAIN SCORE OF 7-9/10 DEPENDING ON PHYSICAL ACTIVITY. THE PATIENT STATES HER PAIN IS MAINLY IN HER LOW BACK AND MEDIAL ASPECT OF LEFT LEG WITH NUMBNESS OVER HER ANKLE. THE PATIENT SAYS SHE HAS BEEN SUFFERING FROM HER LOW BACK PAIN FOR MANY YEARS, BUT HER LEFT LEG PAIN BEGAN APPROXIMATELY 2 YEARS AGO. THE PATIENT STATES HER PAIN IS AFFECTING HER ABILITY TO PERFORM HER DAILY ACTIVITIES SUCH WALKING, WHICH IS UNSTEADY, THEREFORE SHE RELIES ON A CANE FOR STABILITY. THE PATIENT SAYS SHE NEEDS TO LAY FLAT ON HER BACK TO HELP WITH HER PAIN. PATIENT DENIES UNEXPLAINABLE WEIGHT LOSS, FEVER, CHILLS, NEW CHANGES ON HER URINARY OR BOWEL CONTROL. FALL RISK SCREENING: SCREENING :NO FALLS REPORTED IN THE LAST YEAR CURRENT MEDICATIONS TAKING LEVOTHYROXINE SODIUM 50 MCG TABLET 1 TABLET ORALLY ONCE A DAY TAKING PRIMIDONE 50 MG TABLET 2 TAB(S) ORALLY TWICE A DAY TAKING TYLENOL EXTRA STRENGTH 500 MG TABLET 1 TABLET NEEDED ORALLY EVERY 6 HRS TAKING MULTIVITAMIN _ TABLET 1 TAB(S) ORALLY ONCE A DAY TAKING CALCIUM _ TABLET 1 TABLET ORALLY ONCE A DAY TAKING VITAMIN D 2000 MG TABLET 1 TABLET ORALLY ONCE A DAY TAKING ASPIRIN 81 MG TABLET CHEWABLE 1 TABLET ORALLY ONCE A DAY TAKING PROLIA 60 MG/ML SOLUTION SUBCUTANEOUS TWICE A YEAR FEB/ AUGUST TAKING SIMVASTATIN 20 MG TABLET TAKE ONE TABLET BY MOUTH IN THE EVENING TAKING METOPROLOL TARTRATE 25 MG TABLET 1 TABLET WITH FOOD ORALLY TWICE A DAY TAKING NITROFURANTOIN MACROCRYSTAL 100 MG CAPSULE 1 CAPSULE WITH FOOD OR MILK ORALLY ONCE A DAY, NOTES: HAS NOT RESTARTED NOT-TAKING METOPROLOL TARTRATE 25 MG TAKE ONE TABLET BY MOUTH TWICE A DAY WITH FOOD NOT-TAKING SIMVASTATIN 20 MG TAKE ONE TABLET BY MOUTH IN THE EVENING NOT-TAKING SIMVASTATIN 20 MG TABLET 1 TABLET IN THE EVENING ORALLY ONCE A DAY MEDICATION LIST REVIEWED AND RECONCILED WITH THE PATIENT PAST MEDICAL HISTORY OSTEOPOROSIS - 11/24 DEXA, FOLLOWS WITH ENDO/FISH HYPOTHYROIDISM ESSENTIAL TREMOR HYPERLIPIDEMIA HYPNAGOGIC & HYPNOPOMIC 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 - HEMATOLOGY ALLERGIES SULFA (FOR ALLERGY USE ONLY): UNKNOWN LATEX (FOR ALLERGY USE ONLY): ITCH BANANAS: NAUSEA/VOMITING SURGICAL HISTORY D & C TONSILLECTOMY HYSTERECTOMY KIDNEY STENT KIDNEY STONE REMOVED 05/21/14 CATERIC RIGHT EYE @[facility] 05/2015 LEFT SHOULDER ARM SURGERY 03/2015 EYE BROW SURGERY BOTH EYES 11/03/15 EYE BROW SURGERY- BILATERAL EYES 06/08/16 FAMILY HISTORY FATHER: 90 YRS, DM2 MOTHER: 96 YRS, BREAST CANCER IN HER 70S SIBLINGS: ALIVE 73 YRS, FIBROMYALGIA DAUGHTER(S): ALIVE 48 YRS, RENAL CANCER, GLUTEN INTOLERANCE, LACTOSE INTOLERANCE 1 SISTER(S) . 1DAUGHTER(S) - HEALTHY. SOCIAL HISTORY GENERAL: TOBACCO USE ARE YOU A:NONSMOKER OTHERS AT HOME: SPOUSE. HOUSING: OWNS HOME. EDUCATION LEVEL OF EDUCATION:FINISHED COLLEGE DIET: REGULAR. LANGUAGE AFGHAN. DOMESTIC VIOLENCE NONE. NEW PATIENT PAIN DIARY PATIENT DESCRIBES PAIN :ACHING, SHOOTING FROM 0-10, WHAT LEVEL IS YOUR PAIN TODAY?7 PRECIPITATING FACTORS SITTING, BENDING, WALKING ALLEVIATING FACTORS REST IMPACT ON FUNCTION LESS ABLE TO DO ADLS HAVE YOU BEEN SICK IN THE LAST WEEK (COLD, COUGH, FEVER, FLU, ETC)NO DO YOU TAKE ANY BLOOD THINNERS?YES 81 MG ASA DO YOU HAVE ANY RASHES OR OPEN SORES?NO ANY CHANGE IN BOWEL OR BLADDER CONTROL?NO ARE YOU ALLERGIC TO SHELLFISH OR IV DYE?NO ARE YOU DIABETIC?NO DO YOU HAVE A PACEMAKER OR DEFIBRILLATOR?NO ANY NEW PATTERNS OF PAIN OR NUMBNESS?YES NUMBNESS, TINGLING, WEAKNESS IN LEFT LEG HAVE YOU FALLEN IN THE LAST 6 MONTHS?NO DO YOU USE ANY TYPE OF TOBACCO (SMOKE, SMOKELESS, CHEW, ETC.)NO ARE YOU ABUSED, NEGLECTED, OR IN AN UNSAFE ENVIRONMENT?NO DO YOU HAVE THOUGHTS OF HURTING YOURSELF OR SOMEONE ELSE?NO INTENSITY SCALE REVIEWEDNUMBER BMI CARE GOAL FOLLOW-UP BELOW NORMAL BMI FOLLOW-UPDIETARY EDUCATION FOR WEIGHT GAIN RECREATIONAL DRUG USE DRUG USE?NO EXERCISE: NONE. LEARNING BARRIERS / SPECIAL NEEDS CHANGE FROM LAST VISIT?NO BARRIERS TO LEARNING?NO HEARING IMPAIRED?NO VISION IMPAIRED?YES COGNITIVELY IMPAIRED?NO :CORRECTIVE LENSES READINESS TO LEARN?YES LEARNING PREFERENCES?NO LEARNING CAPABILITIES PRESENT?YES EMOTIONAL BARRIERS?NO SPECIAL DEVICES?NO CUSTOMER SERVICE MANAGER NEEDED?NO LUNG CANCER SCREENING SMOKING STATUS:NON SMOKER PAIN CLINIC PFS, CLERGY, PUBLIC HEALTH REFERRALS PFS REFERRAL NEEDED?NO CLERGY REFERRAL NEEDED?NO PUBLIC HEALTH REFERRAL NEEDED?NO WAS THE PROVIDER NOTIFIED OF ANY PERTINENT INFO?YES HAS THE PATIENT BEEN EDUCATED REGARDING HIS/HER PLAN OF CARE?YES HAS THE PATIENT BEEN EDUCATED REGARDING PAIN, THE RISK FOR PAIN, THE IMPORTANCE OF EFFECTIVE PAIN MANAGEMENT, AND THE PAIN ASSESSMENT PROCESS?YES LATEX QUESTIONNAIRE LATEX ALLERGY : HAVE YOU EVER DEVELOPED ANY TYPE OF REACTION AFTER HANDLING LATEX PRODUCTS SUCH RUBBER GLOVES, CONDOMS, DIAPHRAGMS, BALLOONS, SOCKS, OR UNDERWEAR?YES ITCHING - PLEASE INDICATE :OTHER (DOCUMENT IN NOTES) SANITARY PADS LATEX ALLERGY : HAVE YOU EVER DEVELOPED ANY TYPE OF REACTION DURING OR AFTER DENTAL APPOINTMENT, VAGINAL/RECTAL EXAMINATION, SURGICAL PROCEDURE, OR ANY OTHER EXPOSURE?NO LATEX RISK : HAVE YOU EVER HAD ANY DIFFICULTY BREATHING OR HIVES AFTER EATING OR HANDLING ANY FRUITS, OR VEGETABLES; SUCH KIWI, BANANAS, STONE FRUITS, OR CHESTNUTSYES - PLEASE INDICATE : BANANAS VOMITING LATEX RISK : DO YOU HAVE A PREVIOUS PERSONAL HISTORY OF MORE THAN NINE SURGERIES, SPINA BIFIDA, OR REPEATED CATHERIZATIONS? NO LATEX RISK : ARE YOU FREQUENTLY EXPOSED TO LATEX PRODUCTS IN YOUR OCCUPATION?NO DATE ASKED : 12/29/2018 CAFFEINE CAFFEINE USE?YES TEA ABOUT 2 CUPS DAILY ADVANCE DIRECTIVE ADVANCE DIRECTIVE DISCUSSED WITH PATIENT:YES YES STATES IS HCP- TAB CONGREGATION NO CHURCH BELIEFS THAT WOULD IMPACT HEALTH CARE. MARITAL STATUS: . ALCOHOL SCREENING DID YOU HAVE A DRINK CONTAINING ALCOHOL IN THE PAST YEAR?NO POINTS0 INTERPRETATIONNEGATIVE OCCUPATION: RETIRED. SEXUAL HX HAD SEX IN THE LAST 12 MONTHS (VAGINAL, ORAL, OR ANAL)?NO HAVE YOU EVER HAD AN STD?NO HOSPITALIZATION/MAJOR DIAGNOSTIC PROCEDURE KIDNEY STONES 06/15/14 SURGERIES CHILDHOOD REVIEW OF SYSTEMS REVIEWED BY: PROVIDER: ALTHEA GILLESPIE MD . CONSTITUTIONAL: ANY CHANGE IN YOUR MEDICAL CONDITION? NO . CHILLS NO . FEVER NO . INFECTION: DO YOU HAVE NEW INFECTIONS? NO . DO YOU HAVE HISTORY OF MRSA? NO . MUSCULOSKELETAL: ANY NEW PATTERNS OF PAIN OR NUMBNESS? YES- NUMBNESS, TINGLING IN LEFT LEG . SYTEMIC LUPUS NO . GASTROENTEROLOGY: ANY NEW CHANGE IN BOWEL CONTROL? NO . BARRETTS ESOPHAGUS NO . CIRRHOSIS NO . HEPATITIS NO . LIVER FAILURE NO . ACID REFLUX NO . UNEXPLAINED WEIGHT LOSS NO . GENITOURINARY: ANY NEW CHANGE IN BLADDER CONTROL? NO . IS THERE A CHANCE YOU COULD BE ? NO . HEMATOLOGY/LYMPH: DO YOU TAKE ANY BLOOD THINNERS? (FOR EXAMPLE- COUMADIN, PLAVIX, AGGRENOX, PLATEL, PRADAXA, OR XARELTO) YES- ASA 81 MG DAILY . WHEN WAS YOUR LAST DOSE? DATE: TIME: . LOW PLATELET COUNT NO . SICKLE CELL DISEASE NO . VON WILLIEBRANDS NO . FACTOR V LEIDEN NO . THALLASEMIA NO . ANEMIA NO . EASY BRUISING NO . NEUROLOGY: HAVE YOU FALLEN IN THE PAST 12 MONTHS? NO . ANY NEW EXTREMITY NUMBNESS OR WEAKNESS? YES- LEFT LEG . HEAD INJURY NO . DEMENTIA NO . CEREBRAL PALSY NO . MULTIPLE SCLEROSIS NO . DIZZINESS NO . HEADACHE NO . STROKES NO . VERTIGO NO . CARDIOLOGY: DO YOU HAVE A PACEMAKER OR DEFIBRILLATOR? NO . ANGINA NO . HEART ATTACK NO . HEART SURGERY NO . CONGESTIVE HEART FAILURE/FLUID OVERLOAD NO . CHEST PAIN NO . HIGH BLOOD PRESSURE ON MEDICATION(S) . IRREGULAR HEART BEAT NO . RESPIRATORY: HAVE YOU BEEN SICK IN THE PAST WEEK? NO . FEVER NO . FLU LIKE SYMPTOMS? NO . CPAP NO . BYPAP NO . ASTHMA NO . EMPHYSEMA NO . CHRONIC LUNG DISEASES NO . SHORTNESS OF BREATH ON EXERTION NO . COUGH NO . SNORING NO . INTEGUMENTARY: DO YOU HAVE ANY RASHES OR OPEN SORES? NO . ALLERGIC/IMMUNO: ARE YOU ALLERGIC TO IV DYE? NO . ANY NEW ALLERGIES? NO . PSYCHIATRIC: DO YOU HAVE THOUGHTS OF HURTING YOURSELF OR SOMEONE ELSE? NO . ARE YOU ABUSED, NEGLECTED, OR IN AN UNSAFE ENVIRONMENT? NO . ENDOCRINOLOGY: ARE YOU DIABETIC? NO . THYROID DISORDER HYPOTHYROID . OTHER: DO YOU NEED ANY PRESCRIPTIONS? NO . IF YES, PLEASE LIST: ____ . ANY NEW PROBLEMS WITH YOUR MEDICATIONS? NO . WHEN DID YOU LAST EAT? ____ . WHEN DID YOU LAST DRINK? ____ . WHAT DID YOU LAST DRINK? ____ . NAME OF PERSON DRIVING YOU HOME? ____ . DO YOU HAVE ANY OTHER QUESTIONS OR CONCERNS NO . VITAL SIGNS WT 114.8 LBS, HT 4'11", BMI 23.18 INDEX, BP 140/65 MM HG, HR 89 /MIN, RR 18 /MIN, TEMP 96.4 F, OXYGEN SAT % 96%, SAFE IN ENV? (Y/N) YES, NA INITIALS AW 1044, REVIEWED BY: OMKAR. EXAMINATION GENERAL EXAMINATION: PATIENT IS ALERT O X 3 AND COOPERATIVE. LUNGS CLEAR, TO AUSCULTATION. HEART: NO MURMURS OR GALLOPS; FACIAL CRANIAL NERVES ARE GROSSLY NORMAL. GOOD SYMMETRY OF FACIAL MUSCLE MOVEMENT. NORMAL VISUAL HERNANDEZ. ANTALGIC WALK. PATIENT USES A CANE TO AMBULATE. LEFT LEG IS WEAKER AT EXTENSION AND FLEXION. STRAIGHT LEG RAISES OF BOTH LEGS ARE POSITIVE AT 45 DEGREES FOR RADICULOPATHY. MRI OF THE LUMBAR SPINE DONE ON 07/23/2017 SHOWS BULGING DISCS AT MULTIPLE LEVELS, INCLUDING L4-L5 AND L5-S1 LEVELS. ASSESSMENTS INTERVERTEBRAL DISC DISORDERS WITH RADICULOPATHY, LUMBAR REGION - M51.16 (PRIMARY) INTERVERTEBRAL DISC DISORDERS WITH RADICULOPATHY, LUMBOSACRAL REGION - M51.17 PAIN OF LEFT LOWER EXTREMITY - M79.605 TREATMENT INTERVERTEBRAL DISC DISORDERS WITH RADICULOPATHY, LUMBAR REGION CLINICAL NOTES: WE DISCUSSED SEVERAL ISSUES WITH MS. CHATTERJEE'S PAIN MANAGEMENT CASE. DUE TO THE LUMBAR RADICULOPATHY, I WOULD LIKE TO MOVE FORWARD WITH A LUMBAR EPIDURAL STEROID INJECTION AT THIS TIME. WE DISCUSSED THE BENEFITS, RISKS, AND ALTERNATIVES OF THE INJECTION AND THE PATIENT WOULD LIKE TO PROCEED. I AM LOOKING FOR LONG LASTING PAIN RELIEF FROM THIS INJECTION FOR THE PATIENT. THE PATIENT WILL FOLLOW UP IN SEVERAL WEEKS AFTER HER INJECTION. I WILL REQUEST A COPY OF THE PATIENT'S UPCOMING MRI RESULTS THAT WAS ORDERED BY DR. CAST. THE PATIENT WILL FOLLOW UP IN SEVERAL WEEKS AFTER HER INJECTION TO SEE HOW IT IS HELPING WITH HER PAIN. INSTRUCTIONS WERE GIVEN, QUESTIONS WERE ANSWERED, PATIENT REPORTS UNDERSTANDING AND AGREES WITH THE PLAN. I, BARB VERAS, DOCUMENTED THE ABOVE INFORMATION ACTING A SCRIBE FOR DR. GILLESPIE. I HAVE REVIEWED THE ABOVE DOCUMENT, WRITTEN BY BARB NIXON AND I VERIFY THAT IT IS ACCURATE. DEAR ALIVIA CAST MD: THANK YOU FOR YOUR KIND REFERRAL OF REMY CHATTERJEE. IF YOU WANT TO DISCUSS HER CASE WITH ME PLEASE CALL ME AT THE PAIN CENTER AT [phone]. SINCERELY, ALTHEA GILLESPIE MD PAIN MEDICINE . PROCEDURE CODES FA211 ESTABILISHED PATIENT [facility] FACILITY CHARGE [id number] CURRENT MEDS W/DOSAGES DOCUMENTED G8730 PAIN ASSESS POS TOOL F/U PLAN DOC DISPOSITION & COMMUNICATION FOLLOW UP REASON: LESI ELECTRONICALLY SIGNED BY ALTHEA GILLESPIE MD, MD ON 01/16/2019 AT 04:54 PM EST DISCLAIMER : THIS IS A VISIT SUMMARY EXTRACTED FROM THE [employer] CHART. IT IS NOT A COPY OF THE [employer] PROGRESS NOTE. MTDD
== END ==
LOC: M PAIN 10:30
PROVIDERS: ATTEND Anesthesiology
DX: M51.16 Intervertebral disc disorders with radiculopathy, lumbar region (principal); M51.17 Intervertebral disc disorders with radiculopathy, lumbosacral region; M79.605 Pain in left leg; G89.29 Other chronic pain; E03.9 Hypothyroidism, unspecified; G25.0 Essential tremor; E78.5 Hyperlipidemia, unspecified; R73.01 Impaired fasting glucose; Z88.2 Allergy status to sulfonamides; Z91.018 Allergy to other foods; Z91.040 Latex allergy status; Z79.82 Long term (current) use of aspirin; Z79.899 Other long term (current) drug therapy

== ENCOUNTER → 2019-01-10 | Outpatient (CLI) | payer MEDICARE, OTHER ==
[2019-01-10 19:17] LABS: FREE T4 1.09 NG/DL (0.76-1.46); THYROID STIMULATING HORMONE 1.18 uIU/ML (0.358-3.740)
== END ==
LOC: M PLALAB 15:01
PROVIDERS: ATTEND Internal Medicine Endocrinology, Diabetes & Metabolism
DX: E03.9 Hypothyroidism, unspecified (principal)

== ENCOUNTER → 2019-01-25 | Outpatient (REF) | payer MEDICARE, OTHER ==
[2019-01-25 12:41] LABS: BASO # 0.1 10^3/uL (0.0-0.2); EOS # 0.1 10^3/uL (0.0-0.5); EOS % 2.3 % (0.0-3.0); HEMATOCRIT 42.9 % (36.0-47.0); HEMOGLOBIN 13.7 g/dl (12.0-15.5); LYMPH # 2.6 10^3/uL (1.5-5.0); LYMPH % 42.1 % (24.0-44.0); MEAN CORPUSCULAR HGB CONC 31.9 g/dl (32.0-36.5); MEAN CORPUSCULAR VOLUME 97.1 fl (80.0-96.0); MONO # 0.4 10^3/uL (0.0-0.8); MONO % 6.2 % (0.0-5.0); NEUTROPHILS % 48.2 % (36.0-66.0); PLATELET COUNT, AUTOMATED 305 10^3/uL (150-450); RED BLOOD COUNT 4.42 10^6/uL (4.00-5.40); WHITE BLOOD COUNT 6.2 10^3/uL (4.0-10.0)
[2019-01-25 13:05] LABS: HEMOGLOBIN A1c 5.7 %
[2019-01-25 13:15] LABS: ALBUMIN 3.7 GM/DL (3.2-5.2); ALT/SGPT 29 U/L (12-78); BILIRUBIN,TOTAL 0.3 MG/DL (0.2-1.0); BLOOD UREA NITROGEN 11 MG/DL (7-18); CALCIUM LEVEL 9.3 MG/DL (8.8-10.2); CARBON DIOXIDE LEVEL 29 MEQ/L (21-32); CHLORIDE LEVEL 106 MEQ/L (98-107); FREE T4 1.11 NG/DL (0.76-1.46); GLOMERULAR FILTRATION RATE > 60.0 (>39); GLUCOSE, FASTING 97 MG/DL (70-100); POTASSIUM SERUM 4.1 MEQ/L (3.5-5.1); SODIUM LEVEL 142 MEQ/L (136-145); TOTAL 25(OH) VITAMIN D 64.4 NG/ML (30.0-100.0); TOTAL PROTEIN 6.9 GM/DL (6.4-8.2)
== END ==
LOC: M SFHCADAM 09:13
PROVIDERS: ATTEND Physician Assistant Medical
DX: M81.0 Age-related osteoporosis without current pathological fracture (principal); E03.9 Hypothyroidism, unspecified; R73.01 Impaired fasting glucose; E78.2 Mixed hyperlipidemia

== ENCOUNTER → 2019-02-08 | Outpatient (REF) | payer MEDICARE, OTHER ==
[2019-02-08 14:06] LABS: AMORPHOUS SEDIMENT SMALL (NEGATIVE); APPEARANCE, URINE HAZY (CLEAR); BACTERIA, URINE AUTO NEGATIVE (NEGATIVE); BILIRUBIN, URINE AUTO NEGATIVE (NEGATIVE); BLOOD, URINE BLOOD NEGATIVE (NEGATIVE); COLOR, URINE YELLOW (YELLOW); GLUCOSE, URINE (UA) AUTO NEGATIVE (NEGATIVE); KETONE, URINE AUTO NEGATIVE (NEGATIVE); LEUKOCYTE ESTERASE, URINE AUTO 1+ (NEGATIVE); MUCUS, URINE SMALL (NEGATIVE); NITRITE, URINE AUTO NEGATIVE (NEGATIVE); PROTEIN, URINE AUTO NEGATIVE (NEGATIVE); RBC, URINE AUTO 4 /HPF (0-3); SQUAMOUS EPITHELIAL CELL UR AU 1 /HPF (0-6); UROBILINOGEN, URINE AUTO 0.2 mg/dL (0.0-2.0); WBC, URINE AUTO 7 /HPF (0-3)
== END ==
LOC: M SFHCADAM 12:45
PROVIDERS: ATTEND Physician Assistant Medical
DX: R10.31 Right lower quadrant pain (principal)
CPT/HCPCS: 81001; 81002; 87086; G0463

== ENCOUNTER → 2019-02-20 | Outpatient (CLI) | payer MEDICARE, OTHER ==
[~2019-02-20] MED LIST changes: +ISOVUE-M 300 61% 15ML VIAL (Q9967) As Ordered ONE; +LIDOCAINE 1% SDV INJ 30 ML VIAL As Ordered ONE; +diazePAM 2 MG TAB As Ordered ONE; +methylPREDNISolone SUSP 40 MG/ML (DEPO-medrol) VIAL (J1030) As Ordered ONE
--- NOTE | 2019-03-02 04:01 | ECWPNPC ---
PATIENT NAME: REMY CHATTERJEE : 1940 GENDER: FEMALE VISIT DATE: 02/20/2019 DISCHARGE DATE: 02/20/19 1325 VISIT LOCKED DATE TIME: PHYSICIAN: ALTHEA GILLESPIE MD RESOURCE: ALTHEA GILLESPIE MD REASON FOR APPOINTMENT 1. CHANGED TO FOLLOW UP VISIT. HISTORY OF PRESENT ILLNESS HISTORY OF PRESENT ILLNESS: PAIN THE PATIENT DESCRIBES THE PAIN... 78 YEAR OLD FEMALE PATIENT WITH A HISTORY OF CHRONIC LOW BACK AND LEG PAIN. THE PATIENT DESCRIBES THE PAIN ACHING, TENDER, AND CONTINUOUS WITH A PAIN SCORE OF 6-8/10 DEPENDING ON PHYSICAL ACTIVITY. THE PATIENT STATES HER PAIN BEGINS IN HER LOW BACK AND RADIATES DOWN MAINLY HER LEFT LEG. THE PATIENT SAYS HER PAIN IS AFFECTING HER ABILITY TO PERFORM HER DAILY ACTIVITIES SUCH WALKING, COOKING, AND CLEANING HER HOUSE. PATIENT DENIES UNEXPLAINABLE WEIGHT LOSS, FEVER, CHILLS, NEW CHANGES ON HER URINARY OR BOWEL CONTROL. FALL RISK SCREENING: SCREENING :NO FALLS REPORTED IN THE LAST YEAR CURRENT MEDICATIONS TAKING LEVOTHYROXINE SODIUM 50 MCG TABLET 1 TABLET ORALLY ONCE A DAY, NOTES: 02-19-191099 TAKING PRIMIDONE 50 MG TABLET 2 TAB(S) ORALLY TWICE A DAY, NOTES: 02-19-191699 TAKING TYLENOL EXTRA STRENGTH 500 MG TABLET 1 TABLET NEEDED ORALLY EVERY 6 HRS, NOTES: NONE RECENTLY TAKING MULTIVITAMIN _ TABLET 1 TAB(S) ORALLY ONCE A DAY, NOTES: 02-19-191099 TAKING CALCIUM _ TABLET 1 TABLET ORALLY ONCE A DAY, NOTES: 02-19-19 1100 TAKING VITAMIN D 2000 MG TABLET 1 TABLET ORALLY ONCE A DAY, NOTES: 02-19-19 1600 TAKING ASPIRIN 81 MG TABLET CHEWABLE 1 TABLET ORALLY ONCE A DAY, NOTES: 02-19-19 1100 TAKING PROLIA 60 MG/ML SOLUTION SUBCUTANEOUS TWICE A YEAR August, NOTES: LAST IN AUGUST 2018 TAKING SIMVASTATIN 20 MG TABLET TAKE ONE TABLET BY MOUTH IN THE EVENING , NOTES: 02-19-191099 TAKING METOPROLOL TARTRATE 25 MG TABLET 1 TABLET WITH FOOD ORALLY TWICE A DAY, NOTES: 02-19-191699 NOT-TAKING NITROFURANTOIN MONOHYD MACRO 100 MG CAPSULE 1 CAP ORALLY TWICE DAILY NOT-TAKING NITROFURANTOIN MACROCRYSTAL 100 MG CAPSULE 1 CAPSULE WITH FOOD OR MILK ORALLY ONCE A DAY, NOTES: HAS NOT RESTARTED NOT-TAKING METOPROLOL TARTRATE 25 MG TAKE ONE TABLET BY MOUTH TWICE A DAY WITH FOOD NOT-TAKING SIMVASTATIN 20 MG TAKE ONE TABLET BY MOUTH IN THE EVENING NOT-TAKING SIMVASTATIN 20 MG TABLET 1 TABLET IN THE EVENING ORALLY ONCE A DAY MEDICATION LIST REVIEWED AND RECONCILED WITH THE PATIENT PAST MEDICAL HISTORY OSTEOPOROSIS - 11/24 DEXA, FOLLOWS WITH ENDO/FISH HYPOTHYROIDISM ESSENTIAL TREMOR HYPERLIPIDEMIA HYPNAGOGIC & HYPNOPOMIC 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 - HEMATOLOGY ALLERGIES SULFA (FOR ALLERGY USE ONLY): UNKNOWN LATEX (FOR ALLERGY USE ONLY): ITCH BANANAS: NAUSEA/VOMITING SURGICAL HISTORY D & C TONSILLECTOMY HYSTERECTOMY KIDNEY STENT KIDNEY STONE REMOVED 05/21/14 CAT[facility]IC RIGHT EYE @[facility] 05/2015 LEFT SHOULDER ARM SURGERY 03/2015 EYE BROW SURGERY BOTH EYES 11/03/15 EYE BROW SURGERY- BILATERAL EYES 06/08/16 FAMILY HISTORY FATHER: 90 YRS, DM2 MOTHER: 96 YRS, BREAST CANCER IN HER 70S SIBLINGS: ALIVE 74 YRS, FIBROMYALGIA DAUGHTER(S): ALIVE 49 YRS, RENAL CANCER, GLUTEN INTOLERANCE, LACTOSE INTOLERANCE 1 SISTER(S) . 1DAUGHTER(S) - HEALTHY. SOCIAL HISTORY GENERAL: TOBACCO USE ARE YOU A:NONSMOKER OTHERS AT HOME: SPOUSE. HOUSING: OWNS HOME. EDUCATION LEVEL OF EDUCATION:FINISHED COLLEGE DIET: REGULAR. LANGUAGE SLOV[place]. DOMESTIC VIOLENCE NONE. NEW PATIENT PAIN DIARY PATIENT DESCRIBES PAIN :ACHING, SHOOTING FROM 0-10, WHAT LEVEL IS YOUR PAIN TODAY?7 PRECIPITATING FACTORS SITTING, BENDING, WALKING ALLEVIATING FACTORS REST IMPACT ON FUNCTION LESS ABLE TO DO ADLS HAVE YOU BEEN SICK IN THE LAST WEEK (COLD, COUGH, FEVER, FLU, ETC)NO DO YOU TAKE ANY BLOOD THINNERS?YES 81 MG ASA DO YOU HAVE ANY RASHES OR OPEN SORES?NO ANY CHANGE IN BOWEL OR BLADDER CONTROL?NO ARE YOU ALLERGIC TO SHELLFISH OR IV DYE?NO ARE YOU DIABETIC?NO DO YOU HAVE A PACEMAKER OR DEFIBRILLATOR?NO ANY NEW PATTERNS OF PAIN OR NUMBNESS?YES NUMBNESS, TINGLING, WEAKNESS IN LEFT LEG HAVE YOU FALLEN IN THE LAST 6 MONTHS?NO DO YOU USE ANY TYPE OF TOBACCO (SMOKE, SMOKELESS, CHEW, ETC.)NO ARE YOU ABUSED, NEGLECTED, OR IN AN UNSAFE ENVIRONMENT?NO DO YOU HAVE THOUGHTS OF HURTING YOURSELF OR SOMEONE ELSE?NO INTENSITY SCALE REVIEWEDNUMBER BMI CARE GOAL FOLLOW-UP BELOW NORMAL BMI FOLLOW-UPDIETARY EDUCATION FOR WEIGHT GAIN RECREATIONAL DRUG USE DRUG USE?NO EXERCISE: NONE. LEARNING BARRIERS / SPECIAL NEEDS CHANGE FROM LAST VISIT?NO BARRIERS TO LEARNING?NO HEARING IMPAIRED?NO VISION IMPAIRED?YES COGNITIVELY IMPAIRED?NO :CORRECTIVE LENSES READINESS TO LEARN?YES LEARNING PREFERENCES?NO LEARNING CAPABILITIES PRESENT?YES EMOTIONAL BARRIERS?NO SPECIAL DEVICES?NO FOREIGN STUDENT ADVISER NEEDED?NO LUNG CANCER SCREENING SMOKING STATUS:NON SMOKER PAIN CLINIC PFS, CLERGY, PUBLIC HEALTH REFERRALS PFS REFERRAL NEEDED?NO CLERGY REFERRAL NEEDED?NO PUBLIC HEALTH REFERRAL NEEDED?NO WAS THE PROVIDER NOTIFIED OF ANY PERTINENT INFO?YES HAS THE PATIENT BEEN EDUCATED REGARDING HIS/HER PLAN OF CARE?YES HAS THE PATIENT BEEN EDUCATED REGARDING PAIN, THE RISK FOR PAIN, THE IMPORTANCE OF EFFECTIVE PAIN MANAGEMENT, AND THE PAIN ASSESSMENT PROCESS?YES LATEX QUESTIONNAIRE LATEX ALLERGY : HAVE YOU EVER DEVELOPED ANY TYPE OF REACTION AFTER HANDLING LATEX PRODUCTS SUCH RUBBER GLOVES, CONDOMS, DIAPHRAGMS, BALLOONS, SOCKS, OR UNDERWEAR?YES ITCHING LATEX ALLERGY : HAVE YOU EVER DEVELOPED ANY TYPE OF REACTION DURING OR AFTER DENTAL APPOINTMENT, VAGINAL/RECTAL EXAMINATION, SURGICAL PROCEDURE, OR ANY OTHER EXPOSURE?NO - PLEASE INDICATE :OTHER (DOCUMENT IN NOTES) SANITARY PADS DATE ASKED : 12/29/2018 LATEX RISK : HAVE YOU EVER HAD ANY DIFFICULTY BREATHING OR HIVES AFTER EATING OR HANDLING ANY FRUITS, OR VEGETABLES; SUCH KIWI, BANANAS, STONE FRUITS, OR CHESTNUTSYES - PLEASE INDICATE : BANANAS VOMITING LATEX RISK : DO YOU HAVE A PREVIOUS PERSONAL HISTORY OF MORE THAN NINE SURGERIES, SPINA BIFIDA, OR REPEATED CATHERIZATIONS? NO LATEX RISK : ARE YOU FREQUENTLY EXPOSED TO LATEX PRODUCTS IN YOUR OCCUPATION?NO CAFFEINE CAFFEINE USE?YES TEA ABOUT 2 CUPS DAILY ADVANCE DIRECTIVE ADVANCE DIRECTIVE DISCUSSED WITH PATIENT:YES YES STATES IS HCP- TAB YAZIDI NO AMISH BELIEFS THAT WOULD IMPACT HEALTH CARE. MARITAL STATUS: . ALCOHOL SCREENING DID YOU HAVE A DRINK CONTAINING ALCOHOL IN THE PAST YEAR?NO POINTS0 INTERPRETATIONNEGATIVE OCCUPATION: RETIRED. SEXUAL HX HAD SEX IN THE LAST 12 MONTHS (VAGINAL, ORAL, OR ANAL)?NO HAVE YOU EVER HAD AN STD?NO PRE ADMISSION FOR PROCEDURE 1-14-20 KG. HOSPITALIZATION/MAJOR DIAGNOSTIC PROCEDURE KIDNEY STONES 06/15/14 SURGERIES CHILDHOOD REVIEW OF SYSTEMS REVIEWED BY: PROVIDER: ALTHEA GILLESPIE MD . CONSTITUTIONAL: ANY CHANGE IN YOUR MEDICAL CONDITION? NO . CHILLS NO . FEVER NO . INFECTION: DO YOU HAVE NEW INFECTIONS? NO . DO YOU HAVE HISTORY OF MRSA? NO . MUSCULOSKELETAL: ANY NEW PATTERNS OF PAIN OR NUMBNESS? NO . GASTROENTEROLOGY: ANY NEW CHANGE IN BOWEL CONTROL? NO . GENITOURINARY: ANY NEW CHANGE IN BLADDER CONTROL? NO . IS THERE A CHANCE YOU COULD BE ? NO . HEMATOLOGY/LYMPH: DO YOU TAKE ANY BLOOD THINNERS? (FOR EXAMPLE- COUMADIN, PLAVIX, AGGRENOX, PLATEL, PRADAXA, OR XARELTO) NO . WHEN WAS YOUR LAST DOSE? DATE: TIME: . NEUROLOGY: HAVE YOU FALLEN IN THE PAST 12 MONTHS? YES . ANY NEW EXTREMITY NUMBNESS OR WEAKNESS? NO . CARDIOLOGY: DO YOU HAVE A PACEMAKER OR DEFIBRILLATOR? NO . RESPIRATORY: HAVE YOU BEEN SICK IN THE PAST WEEK? NO . FEVER NO . FLU LIKE SYMPTOMS? NO . COUGH NO . INTEGUMENTARY: DO YOU HAVE ANY RASHES OR OPEN SORES? YES - ON ARMS . ALLERGIC/IMMUNO: ARE YOU ALLERGIC TO IV DYE? NO . ANY NEW ALLERGIES? NO . PSYCHIATRIC: DO YOU HAVE THOUGHTS OF HURTING YOURSELF OR SOMEONE ELSE? NO . ARE YOU ABUSED, NEGLECTED, OR IN AN UNSAFE ENVIRONMENT? NO . ENDOCRINOLOGY: ARE YOU DIABETIC? NO . OTHER: DO YOU NEED ANY PRESCRIPTIONS? NO . IF YES, PLEASE LIST: ____ . ANY NEW PROBLEMS WITH YOUR MEDICATIONS? NO . WHEN DID YOU LAST EAT? 02-19-19 1700 . WHEN DID YOU LAST DRINK? 02/20/19 0830 . WHAT DID YOU LAST DRINK? WATER . NAME OF PERSON DRIVING YOU HOME? AYAD CHATTERJEE . DO YOU HAVE ANY OTHER QUESTIONS OR CONCERNS NO . VITAL SIGNS WT 114 LBS, HT 4'11", BMI 23.02 INDEX, BP 124/59 MM HG, HR 77 /MIN, RR 17 /MIN, TEMP 97.3 F, OXYGEN SAT % 96, SAFE IN ENV? (Y/N) Y, REVIEWED BY: LSM. MARTITA LOPEZ LPN II @ [id number]. EXAMINATION GENERAL EXAMINATION: PATIENT IS ALERT O X 3 AND COOPERATIVE. PATIENT'S WALK IS ANTALGIC. LEFT LEG IS WEAKER AT EXTENSION AND FLEXION. STRAIGHT LEG RAISE OF THE LEFT LEG IS POSITIVE AT 40 DEGREES. 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 CHATTERJEE'S PAIN MANAGEMENT CASE. I DISCUSSED THE PATIENT'S CASE WITH THE PATIENT AND THE PATIENT'S GROUND SURVEILLANCE SYSTEMS OPERATOR, DR. LEWIS, AND IT WAS AGREED THAT THE PATIENT WILL BE SEEN BY DR. LEWIS BEFORE HAVING THE LUMBAR EPIDURAL INJECTION. I WAS WITH THE PATIENT FOR MORE THAN 30 MINUTES AND MORE THAN HALF OF THAT TIME WAS SPENT DISCUSSING THE PATIENT'S CASE WITH THE PATIENT, DR. LEWIS, AND JO ANN AMAYA, THE PATIENT'S PRIMARY CARE PROVIDER. THE PATIENT WILL FOLLOW UP WITH ME IN 2 WEEKS TO GO OVER THE CLEARANCE FROM DR. LEWIS. INSTRUCTIONS WERE GIVEN, QUESTIONS WERE ANSWERED, PATIENT REPORTS UNDERSTANDING AND AGREES WITH THE PLAN. I, BARB VERAS, DOCUMENTED THE ABOVE INFORMATION ACTING A SCRIBE FOR DR. GILLESPIE. I HAVE REVIEWED THE ABOVE DOCUMENT, WRITTEN BY BARB NIXON AND I VERIFY THAT IT IS ACCURATE. . PROCEDURE CODES G8427 CURRENT MEDS W/DOSAGES DOCUMENTED G8730 PAIN ASSESS POS TOOL F/U PLAN DOC FA211 ESTABILISHED PATIENT [facility] FACILITY CHARGE DISPOSITION & COMMUNICATION FOLLOW UP 2 WEEKS (REASON: TO REVIEW CLEARANCE) ELECTRONICALLY SIGNED BY ALTHEA GILLESPIE MD, MD ON 03/01/2019 AT 10:42 AM EST DISCLAIMER : THIS IS A VISIT SUMMARY EXTRACTED FROM THE [employer] CHART. IT IS NOT A COPY OF THE [employer] PROGRESS NOTE. STUD
== END ==
LOC: M PAIN 10:15
PROVIDERS: ATTEND Anesthesiology
DX: M51.16 Intervertebral disc disorders with radiculopathy, lumbar region (principal); D47.2 Monoclonal gammopathy; Z79.82 Long term (current) use of aspirin; Z79.899 Other long term (current) drug therapy; Z88.2 Allergy status to sulfonamides; Z91.040 Latex allergy status; Z91.018 Allergy to other foods
CPT/HCPCS: G0463; J1030; Q9967

== ENCOUNTER → 2019-02-22 | Outpatient (REF) | payer MEDICARE, OTHER ==
[~2019-02-22] MED LIST changes: -ISOVUE-M 300 61% 15ML VIAL (Q9967) As Ordered ONE; -LIDOCAINE 1% SDV INJ 30 ML VIAL As Ordered ONE; -diazePAM 2 MG TAB As Ordered ONE; -methylPREDNISolone SUSP 40 MG/ML (DEPO-medrol) VIAL (J1030) As Ordered ONE
[2019-02-22 15:36] LABS: AMORPHOUS SEDIMENT SMALL (NEGATIVE); APPEARANCE, URINE CLOUDY (CLEAR); BACTERIA, URINE AUTO 1+ (NEGATIVE); BILIRUBIN, URINE AUTO NEGATIVE (NEGATIVE); BLOOD, URINE BLOOD NEGATIVE (NEGATIVE); COLOR, URINE YELLOW (YELLOW); GLUCOSE, URINE (UA) AUTO NEGATIVE (NEGATIVE); KETONE, URINE AUTO NEGATIVE (NEGATIVE); LEUKOCYTE ESTERASE, URINE AUTO 3+ (NEGATIVE); MUCUS, URINE SMALL (NEGATIVE); NITRITE, URINE AUTO NEGATIVE (NEGATIVE); PROTEIN, URINE AUTO NEGATIVE (NEGATIVE); RBC, URINE AUTO 7 /HPF (0-3); RENAL EPITHELIAL CELLS 1 /HPF; SQUAMOUS EPITHELIAL CELL UR AU 2 /HPF (0-6); TRANSITIONAL EPITHELIAL AUTO 2 /HPF; URIC ACID CRYSTALS MODERATE; UROBILINOGEN, URINE AUTO 0.2 mg/dL (0.0-2.0); WBC, URINE AUTO 88 /HPF (0-3)
== END ==
LOC: M SFHCADAM 12:33
PROVIDERS: ATTEND Physician Assistant
DX: R30.0 Dysuria (principal)

== ENCOUNTER → 2019-02-22 | Outpatient (REF) | payer MEDICARE, OTHER ==
[2019-02-22 12:31] LABS: CREATININE, SERUM 0.6 MG/DL (0.6-1.0)
[2019-02-22 13:06] LABS: URINE VOLUME 200 ML
[2019-02-22 13:13] LABS: TOTAL VOLUME, URINE 200 ML
[2019-02-22 13:29] LABS: CREATININE CLEARANCE, URINE 37.7 ML/MIN (75-115); TOTAL PROTEIN 24 HOUR URINE 38.2 MG/24HR (50-150); URINE TOTAL PROTEIN 19.1 MG/DL (0-12)
[2019-02-22 13:30] LABS: TOTAL PROTEIN,RANDOM URINE 19.1 MG/DL (0.0-12.0)
[2019-02-28 09:42] LABS: URINE TOTAL PROTEIN 19.1 MG/DL (0-12)
[2019-03-01 11:39] LABS: UPEP INTERPRETATION M-SPIKE IN BETA
[2019-03-01 11:47] LABS: IMMUNOTYPE URINE LAMBDA ABNORMAL (NORMAL)
== END ==
LOC: M LAB REF 11:58
PROVIDERS: ATTEND Internal Medicine Hematology & Oncology
DX: D47.2 Monoclonal gammopathy (principal); R30.0 Dysuria

== ENCOUNTER → 2019-03-02 | Outpatient (REF) | payer MEDICARE, OTHER ==
[2019-03-02 13:45] LABS: CALCIUM LEVEL 9.4 MG/DL (8.8-10.2)
[2019-03-02 14:01] LABS: TOTAL 25(OH) VITAMIN D 72.4 NG/ML (30.0-100.0)
== END ==
LOC: M LABDRWAD 12:41
PROVIDERS: ATTEND Internal Medicine Endocrinology, Diabetes & Metabolism
DX: M81.0 Age-related osteoporosis without current pathological fracture (principal); E55.9 Vitamin D deficiency, unspecified

== ENCOUNTER → 2019-03-06 | Outpatient (CLI) | payer MEDICARE, OTHER ==
[~2019-03-06] MED LIST changes: +D3 22000 PO; +ENDO5TAB PO
--- NOTE | 2019-03-16 01:47 | ECWPNPC ---
PATIENT NAME: REMY CHATTERJEE : 1940 GENDER: FEMALE VISIT DATE: 03/06/2019 DISCHARGE DATE: 03/06/19 1540 VISIT LOCKED DATE TIME: PHYSICIAN: ALTHEA GILLESPIE MD RESOURCE: ALTHEA GILLESPIE MD REASON FOR APPOINTMENT 1. F/UP PER DR. Sow HISTORY OF PRESENT ILLNESS HISTORY OF PRESENT ILLNESS: PAIN THE PATIENT DESCRIBES THE PAIN... 78 YEAR OLD FEMALE PATIENT WITH A HISTORY OF CHRONIC LOW BACK AND LEG PAIN. THE PATIENT DESCRIBES THE PAIN ACHING, SORE, AND DAILY WITH A PAIN SCORE OF 6-9/10 DEPENDING ON PHYSICAL ACTIVITY. THE PATIENT STATES HER PAIN BEGINS IN HER LOW BACK AND RADIATES DOWN MAINLY HER LEFT LEG. THE PATIENT SAYS HER PAIN IS AFFECTING HER ABILITY TO PERFORM HER DAILY ACTIVITIES SUCH COOKING, CLEANING HER HOUSE, AND GROCERY SHOPPING. PATIENT DENIES UNEXPLAINABLE WEIGHT LOSS, FEVER, CHILLS, NEW CHANGES ON HER URINARY OR BOWEL CONTROL. FALL RISK SCREENING: SCREENING :NO FALLS REPORTED IN THE LAST YEAR CURRENT MEDICATIONS TAKING LEVOTHYROXINE SODIUM 50 MCG TABLET 1 TABLET ORALLY ONCE A DAY TAKING PRIMIDONE 50 MG TABLET 2 TAB(S) ORALLY THREE TIMES DAILY TAKING TYLENOL EXTRA STRENGTH 500 MG TABLET 1 TABLET NEEDED ORALLY EVERY 6 HRS TAKING MULTIVITAMIN _ TABLET 1 TAB(S) ORALLY ONCE A DAY TAKING CALCIUM _ TABLET 600 MGS 1 TABLET ORALLY ONCE A DAY TAKING VITAMIN D _ TABLET 2000 UNITS 1 TABLET ORALLY ONCE A DAY TAKING ASPIRIN 81 MG TABLET CHEWABLE 1 TABLET ORALLY ONCE A DAY TAKING PROLIA 60 MG/ML SOLUTION SUBCUTANEOUS TWICE A YEAR FEB/ AUGUST TAKING SIMVASTATIN 20 MG TABLET TAKE ONE TABLET BY MOUTH IN THE EVENING TAKING METOPROLOL TARTRATE 25 MG TABLET 1 TABLET WITH FOOD ORALLY TWICE A DAY TAKING OXYCODONE-ACETAMINOPHEN 5-325 MG TABLET (SCHEDULE II DRUG) TAKE ONE TABLET BY MOUTH EVERY DAY NEEDED MAXIMUM DAILY DOSE 1 ORAL NOT-TAKING PYRIDIUM 100 MG TABLET 2 TABLETS AFTER MEALS ORALLY THREE TIMES A DAY MEDICATION LIST REVIEWED AND RECONCILED WITH THE PATIENT PAST MEDICAL HISTORY OSTEOPOROSIS - 11/24 DEXA, FOLLOWS WITH ENDO/FISH HYPOTHYROIDISM ESSENTIAL TREMOR HYPERLIPIDEMIA HYPNAGOGIC & HYPNOPOMIC 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 - HEMATOLOGY ALLERGIES SULFA (FOR ALLERGY USE ONLY): UNKNOWN LATEX (FOR ALLERGY USE ONLY): ITCH BANANAS: NAUSEA/VOMITING SURGICAL HISTORY D & C TONSILLECTOMY HYSTERECTOMY KIDNEY STENT KIDNEY STONE REMOVED 05/21/14 CATERIC RIGHT EYE @[facility] 05/2015 LEFT SHOULDER ARM SURGERY 03/2015 EYE BROW SURGERY BOTH EYES 11/03/15 EYE BROW SURGERY- BILATERAL EYES 06/08/16 FAMILY HISTORY FATHER: 90 YRS, DM2 MOTHER: 96 YRS, BREAST CANCER IN HER 70S SIBLINGS: ALIVE 74 YRS, FIBROMYALGIA, DEMENTIA DAUGHTER(S): ALIVE 49 YRS, RENAL CANCER, GLUTEN INTOLERANCE, LACTOSE INTOLERANCE 1 SISTER(S) . 1DAUGHTER(S) - HEALTHY. SOCIAL HISTORY GENERAL: TOBACCO USE ARE YOU A:NONSMOKER OTHERS AT HOME: SPOUSE. HOUSING: OWNS HOME. EDUCATION LEVEL OF EDUCATION:FINISHED COLLEGE DIET: REGULAR. LANGUAGE MONGOLIAN. DOMESTIC VIOLENCE NONE. NEW PATIENT PAIN DIARY PATIENT DESCRIBES PAIN : ACHING, SHOOTING, FROM 0-10, WHAT LEVEL IS YOUR PAIN TODAY? 7, PRECIPITATING FACTORS SITTING, BENDING, WALKING, ALLEVIATING FACTORS REST, IMPACT ON FUNCTION LESS ABLE TO DO ADLS, HAVE YOU BEEN SICK IN THE LAST WEEK (COLD, COUGH, FEVER, FLU, ETC) NO, DO YOU TAKE ANY BLOOD THINNERS? YES 81 MG ASA, DO YOU HAVE ANY RASHES OR OPEN SORES? NO, ANY CHANGE IN BOWEL OR BLADDER CONTROL? NO, ARE YOU ALLERGIC TO SHELLFISH OR IV DYE? NO, ARE YOU DIABETIC? NO, DO YOU HAVE A PACEMAKER OR DEFIBRILLATOR? NO, ANY NEW PATTERNS OF PAIN OR NUMBNESS? YES NUMBNESS, TINGLING, WEAKNESS IN LEFT LEG, HAVE YOU FALLEN IN THE LAST 6 MONTHS? NO, DO YOU USE ANY TYPE OF TOBACCO (SMOKE, SMOKELESS, CHEW, ETC.) NO, ARE YOU ABUSED, NEGLECTED, OR IN AN UNSAFE ENVIRONMENT? NO, DO YOU HAVE THOUGHTS OF HURTING YOURSELF OR SOMEONE ELSE? NO, INTENSITY SCALE REVIEWED NUMBER. BMI CARE GOAL FOLLOW-UP BELOW NORMAL BMI FOLLOW-UPDIETARY EDUCATION FOR WEIGHT GAIN RECREATIONAL DRUG USE DRUG USE?NO EXERCISE: NONE. LEARNING BARRIERS / SPECIAL NEEDS CHANGE FROM LAST VISIT?NO BARRIERS TO LEARNING?YES COMMENTS SHORT TERM MEMORY LOSS HEARING IMPAIRED?NO VISION IMPAIRED?YES :CORRECTIVE LENSES COGNITIVELY IMPAIRED?NO READINESS TO LEARN?YES LEARNING PREFERENCES?NO LEARNING CAPABILITIES PRESENT?YES EMOTIONAL BARRIERS?NO SPECIAL DEVICES?NO TACTICAL/MOBILE WATCH OFFICER NEEDED?NO LUNG CANCER SCREENING SMOKING STATUS:NON SMOKER PAIN CLINIC PFS, CLERGY, PUBLIC HEALTH REFERRALS PFS REFERRAL NEEDED?NO CLERGY REFERRAL NEEDED?NO PUBLIC HEALTH REFERRAL NEEDED?NO WAS THE PROVIDER NOTIFIED OF ANY PERTINENT INFO? N/A HAS THE PATIENT BEEN EDUCATED REGARDING HIS/HER PLAN OF CARE?YES HAS THE PATIENT BEEN EDUCATED REGARDING PAIN, THE RISK FOR PAIN, THE IMPORTANCE OF EFFECTIVE PAIN MANAGEMENT, AND THE PAIN ASSESSMENT PROCESS?YES LATEX QUESTIONNAIRE LATEX ALLERGY : HAVE YOU EVER DEVELOPED ANY TYPE OF REACTION AFTER HANDLING LATEX PRODUCTS SUCH RUBBER GLOVES, CONDOMS, DIAPHRAGMS, BALLOONS, SOCKS, OR UNDERWEAR?YES ITCHING - PLEASE INDICATE :OTHER (DOCUMENT IN NOTES) SANITARY PADS LATEX ALLERGY : HAVE YOU EVER DEVELOPED ANY TYPE OF REACTION DURING OR AFTER DENTAL APPOINTMENT, VAGINAL/RECTAL EXAMINATION, SURGICAL PROCEDURE, OR ANY OTHER EXPOSURE?NO LATEX RISK : HAVE YOU EVER HAD ANY DIFFICULTY BREATHING OR HIVES AFTER EATING OR HANDLING ANY FRUITS, OR VEGETABLES; SUCH KIWI, BANANAS, STONE FRUITS, OR CHESTNUTSYES - PLEASE INDICATE : BANANAS VOMITING LATEX RISK : DO YOU HAVE A PREVIOUS PERSONAL HISTORY OF MORE THAN NINE SURGERIES, SPINA BIFIDA, OR REPEATED CATHERIZATIONS? NO LATEX RISK : ARE YOU FREQUENTLY EXPOSED TO LATEX PRODUCTS IN YOUR OCCUPATION?NO DATE ASKED : 03/06/2019 CAFFEINE CAFFEINE USE?YES TEA ABOUT 2 CUPS DAILY ADVANCE DIRECTIVE ADVANCE DIRECTIVE DISCUSSED WITH PATIENT:YES YES STATES IS HCP- TAB ANGLICAN NO CONFUCIANISM BELIEFS THAT WOULD IMPACT HEALTH CARE. MARITAL STATUS: . ALCOHOL SCREENING DID YOU HAVE A DRINK CONTAINING ALCOHOL IN THE PAST YEAR?NO POINTS0 INTERPRETATIONNEGATIVE OCCUPATION: RETIRED. SEXUAL HX HAD SEX IN THE LAST 12 MONTHS (VAGINAL, ORAL, OR ANAL)?NO HAVE YOU EVER HAD AN STD?NO PRE ADMISSION FOR PROCEDURE -14-20 KG03/06/2019 REVIEWED WITH PT. AD. HOSPITALIZATION/MAJOR DIAGNOSTIC PROCEDURE KIDNEY STONES 06/15/14 SURGERIES CHILDHOOD REVIEW OF SYSTEMS REVIEWED BY: PROVIDER: ALTHEA GILLESPIE MD . CONSTITUTIONAL: ANY CHANGE IN YOUR MEDICAL CONDITION? NO . CHILLS NO . FEVER NO . INFECTION: DO YOU HAVE NEW INFECTIONS? NO . DO YOU HAVE HISTORY OF MRSA? NO . MUSCULOSKELETAL: ANY NEW PATTERNS OF PAIN OR NUMBNESS? YES, TINGLING IN LEGS ONGOING . GASTROENTEROLOGY: ANY NEW CHANGE IN BOWEL CONTROL? NO . GENITOURINARY: ANY NEW CHANGE IN BLADDER CONTROL? NO . IS THERE A CHANCE YOU COULD BE ? NO . HEMATOLOGY/LYMPH: DO YOU TAKE ANY BLOOD THINNERS? (FOR EXAMPLE- COUMADIN, PLAVIX, AGGRENOX, PLATEL, PRADAXA, OR XARELTO) NO . WHEN WAS YOUR LAST DOSE? DATE: TIME: . NEUROLOGY: HAVE YOU FALLEN IN THE PAST 12 MONTHS? YES, X 1 TRIPPED OVER HER DOGS FOOT. NO MAJOR INJURY . ANY NEW EXTREMITY NUMBNESS OR WEAKNESS? NO . CARDIOLOGY: DO YOU HAVE A PACEMAKER OR DEFIBRILLATOR? NO . RESPIRATORY: HAVE YOU BEEN SICK IN THE PAST WEEK? NO . FEVER NO . FLU LIKE SYMPTOMS? NO . COUGH NO . INTEGUMENTARY: DO YOU HAVE ANY RASHES OR OPEN SORES? YES, REDDENED AREA ON LEFT ARM, NO DRAINAGE NOTED. . ALLERGIC/IMMUNO: ARE YOU ALLERGIC TO IV DYE? NO . ANY NEW ALLERGIES? NO . PSYCHIATRIC: DO YOU HAVE THOUGHTS OF HURTING YOURSELF OR SOMEONE ELSE? NO . ARE YOU ABUSED, NEGLECTED, OR IN AN UNSAFE ENVIRONMENT? NO . ENDOCRINOLOGY: ARE YOU DIABETIC? NO . OTHER: DO YOU NEED ANY PRESCRIPTIONS? NO . IF YES, PLEASE LIST: ____ . ANY NEW PROBLEMS WITH YOUR MEDICATIONS? YES, HAVING HALLUCINATIONS AND SHE FEELS IT'S RELATED TO THE PRIMADONE . WHEN DID YOU LAST EAT? ____ . WHEN DID YOU LAST DRINK? ____ . WHAT DID YOU LAST DRINK? ____ . NAME OF PERSON DRIVING YOU HOME? ____ . DO YOU HAVE ANY OTHER QUESTIONS OR CONCERNS NO PT HAD A SHINGLES VACCINE AND FLU SHOT APPROX 2-3 WEEKS AGO . VITAL SIGNS WT 114.2 LBS, HT 4'11", BMI 23.06 INDEX, BP 136/63 MM HG, HR 87 /MIN, RR 16 /MIN, TEMP 97.2 F, OXYGEN SAT % 99, SAFE IN ENV? (Y/N) Y, REVIEWED BY: DOMINGO. EXAMINATION GENERAL EXAMINATION: PATIENT IS ALERT O X 3 AND COOPERATIVE. LEFT LEG IS WEAKER AT EXTENSION AND FLEXION. STRAIGHT LEG RAISE OF THE LEFT LEG IS POSITIVE AT 50 DEGREES FOR RADICULOPATHY. MRI OF THE LUMBAR SPINE DONE ON 08/28/2018 SHOWS A BULGING DISC AT L4-L5 AND L5-S1 LEVELS. NOTE DONE ON 02/20/[address] LEWIS, THE PATIENT'S PRACTICAL NURSE, WHICH STATES THE PATIENT'S COAGULATION SYSTEM IS APPROPRIATE AND SHE IS CLEARED TO MOVE FORWARD WITH HER LUMBAR EPIDURAL. ASSESSMENTS INTERVERTEBRAL DISC DISORDERS WITH RADICULOPATHY, LUMBAR REGION - M51.16 (PRIMARY) TREATMENT INTERVERTEBRAL DISC DISORDERS WITH RADICULOPATHY, LUMBAR REGION CLINICAL NOTES: WE DISCUSSED SEVERAL ISSUES WITH MS. CHATTERJEE'S PAIN MANAGEMENT CASE. DUE TO THE LUMBAR RADICULOPATHY, I WOULD LIKE TO MOVE FORWARD WITH A LUMBAR EPIDURAL STEROID INJECTION AT THIS TIME. WE DISCUSSED THE BENEFITS, RISKS, AND ALTERNATIVES OF THE INJECTION AND THE PATIENT WOULD LIKE TO PROCEED. I AM LOOKING FOR LONG LASTING PAIN RELIEF FROM THIS INJECTION FOR THE PATIENT. THE PATIENT WILL FOLLOW UP IN SEVERAL WEEKS AFTER HER INJECTION TO SEE HOW IT IS HELPING WITH HER PAIN. INSTRUCTIONS WERE GIVEN, QUESTIONS WERE ANSWERED, PATIENT REPORTS UNDERSTANDING AND AGREES WITH THE PLAN. I, BARB VERAS, DOCUMENTED THE ABOVE INFORMATION ACTING A SCRIBE FOR DR. GILLESPIE. I HAVE REVIEWED THE ABOVE DOCUMENT, WRITTEN BY BARB TAYLORIBDeshawn AND I VERIFY THAT IT IS ACCURATE. . PROCEDURE CODES FA211 ESTABILISHED PATIENT [facility] FACILITY CHARGE G8427 CURRENT MEDS W/DOSAGES DOCUMENTED G8730 PAIN ASSESS POS TOOL F/U PLAN DOC DISPOSITION & COMMUNICATION ELECTRONICALLY SIGNED BY ALTHEA GILLESPIE MD, MD ON 03/15/2019 AT 05:31 PM EST DISCLAIMER : THIS IS A VISIT SUMMARY EXTRACTED FROM THE [employer] CHART. IT IS NOT A COPY OF THE [employer] PROGRESS NOTE. MTDD
== END ==
LOC: M PAIN 12:45
PROVIDERS: ATTEND Anesthesiology
DX: M51.16 Intervertebral disc disorders with radiculopathy, lumbar region (principal)

== ENCOUNTER → 2019-03-09 | Outpatient (CLI) | payer MEDICARE, OTHER | LOC: M PAIN 09:15 | PROVIDERS: ATTEND Anesthesiology | DX: Z53.20 Procedure and treatment not carried out because of patient's decision for unspecified reasons (principal) ==

== ENCOUNTER → 2019-03-13 | Outpatient (CLI) | payer MEDICARE, OTHER ==
--- NOTE | 2019-03-13 17:22 | REP ---
Skeletal survey: Adults study. 16 views. History: Monoclonal gammopathy. Comparison study September 12, 2012. Findings: AP and lateral views of the skull show no bony destructive lesion. There is mild hyperostosis frontalis interna noted bilaterally. No mandibular focal bony lesion is seen. There is degenerative spondylosis in the cervical spine. No focal lytic lesion is seen. No thoracic or lumbar spine collapse or focal lesion is seen. AP views of the femurs and each humerus show no bony destructive lesion. Impression: Negative skeletal survey. No lytic destructive lesion visible. Electronically Signed by Catalino Cerna MD 03/13/2019 07:38 P
== END ==
LOC: M RAD 15:43
PROVIDERS: ATTEND Internal Medicine Hematology & Oncology
DX: D47.2 Monoclonal gammopathy (principal)

== ENCOUNTER → 2019-03-15 | Outpatient (CLI) | payer MEDICARE, OTHER ==
[~2019-03-15] MED LIST changes: +ISOVUE-M 300 61% 15ML VIAL (Q9967) As Ordered ONE; +LIDOCAINE 1% SDV INJ 30 ML VIAL As Ordered ONE; +diazePAM 2 MG TAB As Ordered ONE; +methylPREDNISolone SUSP 40 MG/ML (DEPO-medrol) VIAL (J1030) As Ordered ONE
--- NOTE | 2019-03-15 13:36 | REP ---
Partial lumbar spine series: Single view. History: Epidural steroid injection for pain. 7 seconds of fluoroscopy time is reported. Findings: A single last image hold fluoroscopically obtained spot radiograph of the lumbar spine documents needle position and contrast injection associated with lumbar epidural injection procedure. Electronically Signed by Catalino Cerna MD 03/15/2019 01:28 P
--- NOTE | 2019-03-23 02:03 | ECWPNPC ---
PATIENT NAME: REMY CHATTERJEE : 1940 GENDER: FEMALE VISIT DATE: 03/15/2019 DISCHARGE DATE: 03/15/19 1205 VISIT LOCKED DATE TIME: PHYSICIAN: ALTHEA GILLESPIE MD RESOURCE: ALTHEA GILLESPIE MD REASON FOR APPOINTMENT 1. LESI HISTORY OF PRESENT ILLNESS HISTORY OF PRESENT ILLNESS: PAIN THE PATIENT DESCRIBES THE PAIN... FALL RISK SCREENING: SCREENING :NO FALLS REPORTED IN THE LAST YEAR CURRENT MEDICATIONS TAKING LEVOTHYROXINE SODIUM 50 MCG TABLET 1 TABLET ORALLY ONCE A DAY, NOTES: 03/15/19 0730 TAKING PRIMIDONE 50 MG TABLET 2 TAB(S) ORALLY THREE TIMES DAILY, NOTES: 03/14/19 PM TAKING TYLENOL EXTRA STRENGTH 500 MG TABLET 1 TABLET NEEDED ORALLY EVERY 6 HRS, NOTES: NONE RECENT TAKING MULTIVITAMIN _ TABLET 1 TAB(S) ORALLY ONCE A DAY, NOTES: 03/14/19 TAKING CALCIUM _ TABLET 600 MGS 1 TABLET ORALLY ONCE A DAY, NOTES: 03/14/19 TAKING VITAMIN D _ TABLET 2000 UNITS 1 TABLET ORALLY ONCE A DAY, NOTES: 03/14/19 TAKING ASPIRIN 81 MG TABLET CHEWABLE 1 TABLET ORALLY ONCE A DAY, NOTES: 03/14/19 AM TAKING PROLIA 60 MG/ML SOLUTION SUBCUTANEOUS TWICE A YEAR August, NOTES: ABOUT A MONTH AGO TAKING SIMVASTATIN 20 MG TABLET TAKE ONE TABLET BY MOUTH IN THE EVENING , NOTES: 03/14/19 PM TAKING METOPROLOL TARTRATE 25 MG TABLET 1 TABLET WITH FOOD ORALLY TWICE A DAY, NOTES: 03/14/19 PM TAKING OXYCODONE-ACETAMINOPHEN 5-325 MG TABLET (SCHEDULE II DRUG) TAKE ONE TABLET BY MOUTH EVERY DAY NEEDED MAXIMUM DAILY DOSE 1 ORAL , NOTES: 03/14/19 NOT-TAKING PYRIDIUM 100 MG TABLET 2 TABLETS AFTER MEALS ORALLY THREE TIMES A DAY MEDICATION LIST REVIEWED AND RECONCILED WITH THE PATIENT PAST MEDICAL HISTORY OSTEOPOROSIS - 11/24 DEXA, FOLLOWS WITH ENDO/FISH HYPOTHYROIDISM ESSENTIAL TREMOR HYPERLIPIDEMIA HYPNAGOGIC & HYPNOPOMIC 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 - HEMATOLOGY CHRONIC BACK PAIN ALLERGIES SULFA (FOR ALLERGY USE ONLY): UNKNOWN LATEX (FOR ALLERGY USE ONLY): ITCH BANANAS: NAUSEA/VOMITING SURGICAL HISTORY D & C TONSILLECTOMY HYSTERECTOMY KIDNEY STENT KIDNEY STONE REMOVED 05/21/14 CATERIC RIGHT EYE @[facility] 05/2015 LEFT SHOULDER ARM SURGERY 03/2015 EYE BROW SURGERY BOTH EYES 11/03/15 EYE BROW SURGERY- BILATERAL EYES 06/08/16 FAMILY HISTORY FATHER: 90 YRS, DM2, DIAGNOSED WITH DIABETES MOTHER: 96 YRS, BREAST CANCER IN HER 70S SIBLINGS: ALIVE 74 YRS, FIBROMYALGIA, DEMENTIA DAUGHTER(S): ALIVE 49 YRS, RENAL CANCER, GLUTEN INTOLERANCE, LACTOSE INTOLERANCE 1 SISTER(S) . 1DAUGHTER(S) - HEALTHY. SOCIAL HISTORY GENERAL: TOBACCO USE ARE YOU A:NONSMOKER OTHERS AT HOME: SPOUSE. HOUSING: OWNS HOME. EDUCATION LEVEL OF EDUCATION:FINISHED COLLEGE DIET: REGULAR. LANGUAGE AZERI. DOMESTIC VIOLENCE NONE. NEW PATIENT PAIN DIARY PATIENT DESCRIBES PAIN : ACHING, SHOOTING, FROM 0-10, WHAT LEVEL IS YOUR PAIN TODAY? 7, PRECIPITATING FACTORS SITTING, BENDING, WALKING, ALLEVIATING FACTORS REST, IMPACT ON FUNCTION LESS ABLE TO DO ADLS, HAVE YOU BEEN SICK IN THE LAST WEEK (COLD, COUGH, FEVER, FLU, ETC) NO, DO YOU TAKE ANY BLOOD THINNERS? YES 81 MG ASA, DO YOU HAVE ANY RASHES OR OPEN SORES? NO, ANY CHANGE IN BOWEL OR BLADDER CONTROL? NO, ARE YOU ALLERGIC TO SHELLFISH OR IV DYE? NO, ARE YOU DIABETIC? NO, DO YOU HAVE A PACEMAKER OR DEFIBRILLATOR? NO, ANY NEW PATTERNS OF PAIN OR NUMBNESS? YES NUMBNESS, TINGLING, WEAKNESS IN LEFT LEG, HAVE YOU FALLEN IN THE LAST 6 MONTHS? NO, DO YOU USE ANY TYPE OF TOBACCO (SMOKE, SMOKELESS, CHEW, ETC.) NO, ARE YOU ABUSED, NEGLECTED, OR IN AN UNSAFE ENVIRONMENT? NO, DO YOU HAVE THOUGHTS OF HURTING YOURSELF OR SOMEONE ELSE? NO, INTENSITY SCALE REVIEWED NUMBER. BMI CARE GOAL FOLLOW-UP BELOW NORMAL BMI FOLLOW-UPDIETARY EDUCATION FOR WEIGHT GAIN RECREATIONAL DRUG USE DRUG USE?NO EXERCISE: NONE. LEARNING BARRIERS / SPECIAL NEEDS CHANGE FROM LAST VISIT?NO BARRIERS TO LEARNING?YES COMMENTS SHORT TERM MEMORY LOSS HEARING IMPAIRED?NO VISION IMPAIRED?YES COGNITIVELY IMPAIRED?NO :CORRECTIVE LENSES READINESS TO LEARN?YES LEARNING PREFERENCES?NO LEARNING CAPABILITIES PRESENT?YES EMOTIONAL BARRIERS?NO SPECIAL DEVICES?NO FLORIST NEEDED?NO LUNG CANCER SCREENING SMOKING STATUS:NON SMOKER PAIN CLINIC PFS, CLERGY, PUBLIC HEALTH REFERRALS PFS REFERRAL NEEDED?NO CLERGY REFERRAL NEEDED?NO PUBLIC HEALTH REFERRAL NEEDED?NO WAS THE PROVIDER NOTIFIED OF ANY PERTINENT INFO? N/A HAS THE PATIENT BEEN EDUCATED REGARDING HIS/HER PLAN OF CARE?YES HAS THE PATIENT BEEN EDUCATED REGARDING PAIN, THE RISK FOR PAIN, THE IMPORTANCE OF EFFECTIVE PAIN MANAGEMENT, AND THE PAIN ASSESSMENT PROCESS?YES LATEX QUESTIONNAIRE LATEX ALLERGY : HAVE YOU EVER DEVELOPED ANY TYPE OF REACTION AFTER HANDLING LATEX PRODUCTS SUCH RUBBER GLOVES, CONDOMS, DIAPHRAGMS, BALLOONS, SOCKS, OR UNDERWEAR?YES ITCHING - PLEASE INDICATE :OTHER (DOCUMENT IN NOTES) SANITARY PADS LATEX ALLERGY : HAVE YOU EVER DEVELOPED ANY TYPE OF REACTION DURING OR AFTER DENTAL APPOINTMENT, VAGINAL/RECTAL EXAMINATION, SURGICAL PROCEDURE, OR ANY OTHER EXPOSURE?NO LATEX RISK : HAVE YOU EVER HAD ANY DIFFICULTY BREATHING OR HIVES AFTER EATING OR HANDLING ANY FRUITS, OR VEGETABLES; SUCH KIWI, BANANAS, STONE FRUITS, OR CHESTNUTSYES - PLEASE INDICATE : BANANAS VOMITING LATEX RISK : DO YOU HAVE A PREVIOUS PERSONAL HISTORY OF MORE THAN NINE SURGERIES, SPINA BIFIDA, OR REPEATED CATHERIZATIONS? NO LATEX RISK : ARE YOU FREQUENTLY EXPOSED TO LATEX PRODUCTS IN YOUR OCCUPATION?NO DATE ASKED : 03/06/2019 CAFFEINE CAFFEINE USE?YES TEA ABOUT 2 CUPS DAILY ADVANCE DIRECTIVE ADVANCE DIRECTIVE DISCUSSED WITH PATIENT:YES YES STATES IS HCP- TAB CATHOLIC NO CHEONDOISM BELIEFS THAT WOULD IMPACT HEALTH CARE. MARITAL STATUS: . ALCOHOL SCREENING DID YOU HAVE A DRINK CONTAINING ALCOHOL IN THE PAST YEAR?NO POINTS0 INTERPRETATIONNEGATIVE OCCUPATION: RETIRED. SEXUAL HX HAD SEX IN THE LAST 12 MONTHS (VAGINAL, ORAL, OR ANAL)?NO HAVE YOU EVER HAD AN STD?NO PRE ADMISSION FOR PROCEDURE 02-20-19 KG03/06/2019 REVIEWED WITH PT. MORFIN WITH PATIENT 03/15/19 1005 BV. HOSPITALIZATION/MAJOR DIAGNOSTIC PROCEDURE KIDNEY STONES 06/15/14 SURGERIES CHILDHOOD REVIEW OF SYSTEMS REVIEWED BY: PROVIDER: . CONSTITUTIONAL: ANY CHANGE IN YOUR MEDICAL CONDITION? NO . CHILLS NO . FEVER NO . INFECTION: DO YOU HAVE NEW INFECTIONS? NO . DO YOU HAVE HISTORY OF MRSA? NO . MUSCULOSKELETAL: ANY NEW PATTERNS OF PAIN OR NUMBNESS? NO . GASTROENTEROLOGY: ANY NEW CHANGE IN BOWEL CONTROL? NO . GENITOURINARY: ANY NEW CHANGE IN BLADDER CONTROL? NO . IS THERE A CHANCE YOU COULD BE ? NO . HEMATOLOGY/LYMPH: DO YOU TAKE ANY BLOOD THINNERS? (FOR EXAMPLE- COUMADIN, PLAVIX, AGGRENOX, PLATEL, PRADAXA, OR XARELTO) NO . WHEN WAS YOUR LAST DOSE? DATE: TIME: . NEUROLOGY: HAVE YOU FALLEN IN THE PAST 12 MONTHS? YES, PT STATES SHE HAD A FALL LAST WEEK DUE TO LOSS OF BALANCE, DENIES ANY INJURIES OR ED VISIT WITH FALL. . ANY NEW EXTREMITY NUMBNESS OR WEAKNESS? PT STATES WEAKNESS IN LEFT LEG IS NOT NEW, BUT HAS BEEN INCREASING OVER THE PAST FEW MONTHS . CARDIOLOGY: DO YOU HAVE A PACEMAKER OR DEFIBRILLATOR? NO . RESPIRATORY: HAVE YOU BEEN SICK IN THE PAST WEEK? NO . FEVER NO . FLU LIKE SYMPTOMS? NO . COUGH NO . INTEGUMENTARY: DO YOU HAVE ANY RASHES OR OPEN SORES? YES, PT HAS SMALL CUT TO RIGHT FORARM, COVERED WITH BAND-AID TODAY. . ALLERGIC/IMMUNO: ARE YOU ALLERGIC TO IV DYE? NO . ANY NEW ALLERGIES? NO . PSYCHIATRIC: DO YOU HAVE THOUGHTS OF HURTING YOURSELF OR SOMEONE ELSE? NO . ARE YOU ABUSED, NEGLECTED, OR IN AN UNSAFE ENVIRONMENT? NO . ENDOCRINOLOGY: ARE YOU DIABETIC? NO . OTHER: DO YOU NEED ANY PRESCRIPTIONS? NO . IF YES, PLEASE LIST: ____ . ANY NEW PROBLEMS WITH YOUR MEDICATIONS? NO . WHEN DID YOU LAST EAT? 03/14/19 1800 . WHEN DID YOU LAST DRINK? 03/14/19 1800 . WHAT DID YOU LAST DRINK? WATER . NAME OF PERSON DRIVING YOU HOME? AYAD CHATTERJEE . DO YOU HAVE ANY OTHER QUESTIONS OR CONCERNS NO . VITAL SIGNS WT 115.2 LBS, HT 4'11", BMI 23.27 INDEX, BP 154/70 MM HG, HR 88 /MIN, RR 16 /MIN, TEMP 97.8 F, OXYGEN SAT % 99%, NA INITIALS AW 0947, REVIEWED BY: BV. ASSESSMENTS INTERVERTEBRAL DISC DISORDERS WITH RADICULOPATHY, LUMBOSACRAL REGION - M51.17 (PRIMARY) PROCEDURES PRE PROCEDURE DIAGNOSIS LUMBOSACRAL DISC DISORDER WITH RADICULOPATHY POST PROCEDURE DIAGNOSIS LUMBOSACRAL DISC DISORDER WITH RADICULOPATHY PROCEDURE LUMBAR EPIDURAL STEROID INJECTION UNDER FLUOROSCOPIC GUIDANCE SURGEON DR. ALTHEA GILLESPIE JUDICIAL CLERK NONE ANESTHESIA LOCAL PRE PROCEDURE NOTE THE PATIENT HAS A HISTORY OF CHRONIC LOW BACK PAIN. I EVALUATED THE PATIENT AND REVIEWED THE CHART. I WENT OVER THE RISKS, ALTERNATIVES, AND BENEFITS ASSOCIATED WITH THIS PROCEDURE. THE PATIENT WOULD LIKE TO PROCEED AND GIVES CONSENT TO PERFORM THE PROCEDURE. THE PATIENT DENIES UNEXPLAINABLE WEIGHT LOSS, FEVER, CHILLS, OR NEW CHANGES IN URINARY OR BOWEL CONTROL. DESCRIPTION OF PROCEDURE THE PATIENT WAS BROUGHT TO THE PROCEDURE ROOM AND PLACED IN THE PRONE POSITION. THE LUMBOSACRAL AREA WAS CLEANED WITH BETADINE SOLUTION AND DRAPED ASEPTICALLY. THE PROCEDURE WAS DONE UNDER STERILE CONDITIONS. I CHECKED LATERALITY AND THE LEVEL WHERE THE PROCEDURE WAS GOING TO BE PERFORMED WITH THE PATIENT AND THE SUPPORTING STAFF AT THE MOMENT OF THE TIME OUT IN THE PROCEDURE ROOM. UNDER FLUOROSCOPIC GUIDANCE, THE TARGET POINT WAS SELECTED AT THE INTERLAMINAR LEVEL OF L5-S1. LIDOCAINE WAS USED TO NUMB THE SKIN AND THE SUBCUTANEOUS TISSUE BELOW IT. EPIDURAL TUOHY NEEDLE, 17-GAUGE, WAS ADVANCED UNDER FLUOROSCOPIC GUIDANCE AND FOLLOWING PATIENT FEEDBACK UNTIL THE EPIDURAL SPACE WAS REACHED, 7 CM DEEP INTO THE SKIN BY THE LOSS OF RESISTANCE TECHNIQUE. ISOVUE M DYE 30%, 0.25 ML, WAS INJECTED SHOWING ADEQUATE SPREAD OF THE DYE. THEN, A SOLUTION OF 3 ML OF NORMAL SALINE WITH DEPO-MEDROL 60 MG WAS INJECTED SLOWLY FOLLOWING PATIENT FEEDBACK. THERE WAS NO EVIDENCE OF BLOOD, PARESTHESIA OR CEREBROSPINAL FLUID DURING THE PROCEDURE. THE PATIENT WAS SENT TO THE RECOVERY ROOM. THE PATIENT WAS MOVING THE EXTREMITIES AND DOING WELL. THERE WAS NO COMPLICATION DURING THE PROCEDURE. FLUOROSCOPY TIME WAS 7 SECONDS. POST PROCEDURE NOTE THE PATIENT WILL BE SEEN IN A FOLLOW UP IN THE NEXT FEW WEEKS. I AM LOOKING FOR LONG LASTING PAIN RELIEF WITH THIS INJECTION. INSTRUCTIONS WERE GIVEN, QUESTIONS WERE ANSWERED, AND THE PATIENT EXPRESSED UNDERSTANDING AND AGREES WITH THE PLAN. I, BARB VERAS, DOCUMENTED THE ABOVE INFORMATION ACTING A SCRIBE FOR DR. GILLESPIE. I HAVE REVIEWED THE ABOVE DOCUMENT, WRITTEN BY BARB VERAS SCRIBDeshawn AND I VERIFY THAT IT IS ACCURATE. DIAGNOSTIC IMAGING [facility] FLUORO GUIDE SPINE INJECTION (PAIN)[id number] PROCEDURE CODES 72510 LUMBAR/SACRAL W/ IMAGING 6045F RADXPS IN END [id number] PXD DISPOSITION & COMMUNICATION FOLLOW UP 2 WEEKS ELECTRONICALLY SIGNED BY ALTHEA GILLESPIE MD, MD ON 03/22/2019 AT 01:50 PM EST DISCLAIMER : THIS IS A VISIT SUMMARY EXTRACTED FROM THE [employer] CHART. IT IS NOT A COPY OF THE [employer] PROGRESS NOTE. MTDD
== END ==
LOC: M PAIN 09:45
PROVIDERS: ATTEND Anesthesiology
DX: M51.17 Intervertebral disc disorders with radiculopathy, lumbosacral region (principal); E03.9 Hypothyroidism, unspecified; G25.0 Essential tremor; E78.5 Hyperlipidemia, unspecified; R73.01 Impaired fasting glucose; Z88.2 Allergy status to sulfonamides; Z91.018 Allergy to other foods; Z91.040 Latex allergy status; Z79.82 Long term (current) use of aspirin; Z79.899 Other long term (current) drug therapy
CPT/HCPCS: 62323; J1030; Q9967

== ENCOUNTER → 2019-03-28 | Outpatient (REF) | payer MEDICARE, OTHER ==
[~2019-03-28] MED LIST changes: -ISOVUE-M 300 61% 15ML VIAL (Q9967) As Ordered ONE; -LIDOCAINE 1% SDV INJ 30 ML VIAL As Ordered ONE; -diazePAM 2 MG TAB As Ordered ONE; -methylPREDNISolone SUSP 40 MG/ML (DEPO-medrol) VIAL (J1030) As Ordered ONE
== END ==
LOC: M LAB REF 17:57
PROVIDERS: ATTEND Physician Assistant
DX: N39.0 Urinary tract infection, site not specified (principal)

== ENCOUNTER → 2019-03-28 | Outpatient (REF) | payer MEDICARE, OTHER ==
[2019-03-28 17:05] LABS: ALBUMIN 4.2 GM/DL (3.2-5.2); BLOOD UREA NITROGEN 17 MG/DL (7-18); CALCIUM LEVEL 9.7 MG/DL (8.8-10.2); CARBON DIOXIDE LEVEL 27 MEQ/L (21-32); CHLORIDE LEVEL 107 MEQ/L (98-107); CREATININE FOR GFR 0.76 MG/DL (0.55-1.30); GLOMERULAR FILTRATION RATE > 60.0 (>39); GLUCOSE, FASTING 101 MG/DL (70-100); PHOSPHORUS LEVEL 2.9 MG/DL (2.5-4.9); POTASSIUM SERUM 3.9 MEQ/L (3.5-5.1); SODIUM LEVEL 139 MEQ/L (136-145)
== END ==
LOC: M LABDRWAD 16:20
PROVIDERS: ATTEND Physician Assistant
DX: R31.9 Hematuria, unspecified (principal); N39.0 Urinary tract infection, site not specified

== ENCOUNTER → 2019-03-30 | Outpatient (CLI) | payer MEDICARE, OTHER ==
--- NOTE | 2019-04-18 04:04 | ECWPNPC ---
PATIENT NAME: REMY CHATTERJEE : 1940 GENDER: FEMALE VISIT DATE: 03/30/2019 DISCHARGE DATE: 03/30/19 1135 VISIT LOCKED DATE TIME: PHYSICIAN: MICHELE ROSE RESOURCE: MICHELE ROSE REASON FOR APPOINTMENT 1. POST LESI HISTORY OF PRESENT ILLNESS HISTORY OF PRESENT ILLNESS: BEING SEEN FOR CHRONIC LOW BACK PAIN WITH LEFT LEG RADICULAR SYMPTOMS. HAD LUMBAR EPIDURAL STEROID INJECTION ON 03/15/2019. REPORTS 2-3 DAYS OF IMPROVEMENT IN LOW BACK PAIN BUT NO CHANGE IN LEG SYMPTOMS POST PROCEDURE. RATING PAIN LEVEL A 7/10 VAS. DESCRIBES PAIN MOSTLY DURING THE DAY AND ACHING AND SORENESS. REVIEWED MRI AND DISCUSSED TREATMENT OPTIONS. PAIN THE PATIENT DESCRIBES THE PAIN... FALL RISK SCREENING: SCREENING :NO FALLS REPORTED IN THE LAST YEAR CURRENT MEDICATIONS TAKING LEVOTHYROXINE SODIUM 50 MCG TABLET 1 TABLET ORALLY ONCE A DAY, NOTES: 03/15/19 0730 TAKING PRIMIDONE 50 MG TABLET 2 TAB(S) ORALLY THREE TIMES DAILY, NOTES: 03/14/19 PM TAKING TYLENOL EXTRA STRENGTH 500 MG TABLET 1 TABLET NEEDED ORALLY EVERY 6 HRS, NOTES: NONE RECENT TAKING MULTIVITAMIN _ TABLET 1 TAB(S) ORALLY ONCE A DAY, NOTES: 03/14/19 TAKING CALCIUM _ TABLET 600 MGS 1 TABLET ORALLY ONCE A DAY, NOTES: 03/14/19 TAKING VITAMIN D _ TABLET 2000 UNITS 1 TABLET ORALLY ONCE A DAY, NOTES: 03/14/19 TAKING ASPIRIN 81 MG TABLET CHEWABLE 1 TABLET ORALLY ONCE A DAY, NOTES: 03/14/19 AM TAKING PROLIA 60 MG/ML SOLUTION SUBCUTANEOUS TWICE A YEAR August, NOTES: ABOUT A MONTH AGO TAKING SIMVASTATIN 20 MG TABLET TAKE ONE TABLET BY MOUTH IN THE EVENING , NOTES: 03/14/19 PM TAKING METOPROLOL TARTRATE 25 MG TABLET 1 TABLET WITH FOOD ORALLY TWICE A DAY, NOTES: 03/14/19 PM TAKING OXYCODONE-ACETAMINOPHEN 5-325 MG TABLET (SCHEDULE II DRUG) TAKE ONE TABLET BY MOUTH EVERY DAY NEEDED MAXIMUM DAILY DOSE 1 ORAL , NOTES: 03/14/19 TAKING IBUPROFEN 200 MG TABLET 1 TABLET WITH FOOD OR MILK NEEDED ORALLY THREE TIMES A DAY TAKING COMBIGAN 0.2-0.5 % SOLUTION 1 DROP INTO AFFECTED EYE OPHTHALMIC TWICE A DAY NOT-TAKING PYRIDIUM 100 MG TABLET 2 TABLETS AFTER MEALS ORALLY THREE TIMES A DAY MEDICATION LIST REVIEWED AND RECONCILED WITH THE PATIENT PAST MEDICAL HISTORY OSTEOPOROSIS - 11/24 DEXA, FOLLOWS WITH ENDO/FISH HYPOTHYROIDISM ESSENTIAL TREMOR HYPERLIPIDEMIA HYPNAGOGIC & HYPNOPOMIC 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 - HEMATOLOGY CHRONIC BACK PAIN ALLERGIES SULFA (FOR ALLERGY USE ONLY): UNKNOWN LATEX (FOR ALLERGY USE ONLY): ITCH BANANAS: NAUSEA/VOMITING SURGICAL HISTORY D & C TONSILLECTOMY HYSTERECTOMY KIDNEY STENT KIDNEY STONE REMOVED 05/21/14 CATERIC RIGHT EYE @[facility] 05/2015 LEFT SHOULDER ARM SURGERY 03/2015 EYE BROW SURGERY BOTH EYES 11/03/15 EYE BROW SURGERY- BILATERAL EYES 06/08/16 FAMILY HISTORY FATHER: 90 YRS, DM2, DIAGNOSED WITH DIABETES MOTHER: 96 YRS, BREAST CANCER IN HER 70S SIBLINGS: ALIVE 74 YRS, FIBROMYALGIA, DEMENTIA DAUGHTER(S): ALIVE 49 YRS, RENAL CANCER, GLUTEN INTOLERANCE, LACTOSE INTOLERANCE 1 SISTER(S) . 1DAUGHTER(S) - HEALTHY. SOCIAL HISTORY GENERAL: TOBACCO USE ARE YOU A:NONSMOKER OTHERS AT HOME: SPOUSE. HOUSING: OWNS HOME. EDUCATION LEVEL OF EDUCATION:FINISHED COLLEGE DIET: REGULAR. LANGUAGE YI. DOMESTIC VIOLENCE NONE. NEW PATIENT PAIN DIARY PATIENT DESCRIBES PAIN : ACHING, SHOOTING, FROM 0-10, WHAT LEVEL IS YOUR PAIN TODAY? 7, PRECIPITATING FACTORS SITTING, BENDING, WALKING, ALLEVIATING FACTORS REST, IMPACT ON FUNCTION LESS ABLE TO DO ADLS, HAVE YOU BEEN SICK IN THE LAST WEEK (COLD, COUGH, FEVER, FLU, ETC) NO, DO YOU TAKE ANY BLOOD THINNERS? YES 81 MG ASA, DO YOU HAVE ANY RASHES OR OPEN SORES? NO, ANY CHANGE IN BOWEL OR BLADDER CONTROL? NO, ARE YOU ALLERGIC TO SHELLFISH OR IV DYE? NO, ARE YOU DIABETIC? NO, DO YOU HAVE A PACEMAKER OR DEFIBRILLATOR? NO, ANY NEW PATTERNS OF PAIN OR NUMBNESS? YES NUMBNESS, TINGLING, WEAKNESS IN LEFT LEG, HAVE YOU FALLEN IN THE LAST 6 MONTHS? NO, DO YOU USE ANY TYPE OF TOBACCO (SMOKE, SMOKELESS, CHEW, ETC.) NO, ARE YOU ABUSED, NEGLECTED, OR IN AN UNSAFE ENVIRONMENT? NO, DO YOU HAVE THOUGHTS OF HURTING YOURSELF OR SOMEONE ELSE? NO, INTENSITY SCALE REVIEWED NUMBER. BMI CARE GOAL FOLLOW-UP BELOW NORMAL BMI FOLLOW-UPDIETARY EDUCATION FOR WEIGHT GAIN RECREATIONAL DRUG USE DRUG USE?NO EXERCISE: NONE. 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 N/A HAS THE PATIENT BEEN EDUCATED REGARDING HIS/HER PLAN OF CARE?YES HAS THE PATIENT BEEN EDUCATED REGARDING PAIN, THE RISK FOR PAIN, THE IMPORTANCE OF EFFECTIVE PAIN MANAGEMENT, AND THE PAIN ASSESSMENT PROCESS?YES LATEX QUESTIONNAIRE LATEX ALLERGY : HAVE YOU EVER DEVELOPED ANY TYPE OF REACTION AFTER HANDLING LATEX PRODUCTS SUCH RUBBER GLOVES, CONDOMS, DIAPHRAGMS, BALLOONS, SOCKS, OR UNDERWEAR?YES ITCHING LATEX ALLERGY : HAVE YOU EVER DEVELOPED ANY TYPE OF REACTION DURING OR AFTER DENTAL APPOINTMENT, VAGINAL/RECTAL EXAMINATION, SURGICAL PROCEDURE, OR ANY OTHER EXPOSURE?NO - PLEASE INDICATE :OTHER (DOCUMENT IN NOTES) SANITARY PADS DATE ASKED : 03/06/2019 LATEX RISK : HAVE YOU EVER HAD ANY DIFFICULTY BREATHING OR HIVES AFTER EATING OR HANDLING ANY FRUITS, OR VEGETABLES; SUCH KIWI, BANANAS, STONE FRUITS, OR CHESTNUTSYES - PLEASE INDICATE : BANANAS VOMITING LATEX RISK : DO YOU HAVE A PREVIOUS PERSONAL HISTORY OF MORE THAN NINE SURGERIES, SPINA BIFIDA, OR REPEATED CATHERIZATIONS? NO LATEX RISK : ARE YOU FREQUENTLY EXPOSED TO LATEX PRODUCTS IN YOUR OCCUPATION?NO CAFFEINE CAFFEINE USE?YES TEA ABOUT 2 CUPS DAILY ADVANCE DIRECTIVE ADVANCE DIRECTIVE DISCUSSED WITH PATIENT:YES YES STATES IS HCP- TAB VOODOO NO ANGLICAN BELIEFS THAT WOULD IMPACT HEALTH CARE. MARITAL STATUS: . ALCOHOL SCREENING DID YOU HAVE A DRINK CONTAINING ALCOHOL IN THE PAST YEAR?NO POINTS0 INTERPRETATIONNEGATIVE OCCUPATION: RETIRED. SEXUAL HX HAD SEX IN THE LAST 12 MONTHS (VAGINAL, ORAL, OR ANAL)?NO HAVE YOU EVER HAD AN STD?NO PRE ADMISSION FOR PROCEDURE 114-20 KG03/06/2019 REVIEWED WITH PTJerri MORFIN WITH PATIENT 03/15/19 1005 BV REVIEWED WITH PATIENT 03/30/2019 LAS. HOSPITALIZATION/MAJOR DIAGNOSTIC PROCEDURE KIDNEY STONES 06/15/14 SURGERIES CHILDHOOD REVIEW OF SYSTEMS REVIEWED BY: PROVIDER: MICHELE LANZA . CONSTITUTIONAL: ANY CHANGE IN YOUR MEDICAL CONDITION? NO . CHILLS NO . FEVER NO . INFECTION: DO YOU HAVE NEW INFECTIONS? NO . DO YOU HAVE HISTORY OF MRSA? NO . MUSCULOSKELETAL: ANY NEW PATTERNS OF PAIN OR NUMBNESS? NO . GASTROENTEROLOGY: ANY NEW CHANGE IN BOWEL CONTROL? NO . GENITOURINARY: ANY NEW CHANGE IN BLADDER CONTROL? NO . IS THERE A CHANCE YOU COULD BE ? NO . HEMATOLOGY/LYMPH: DO YOU TAKE ANY BLOOD THINNERS? (FOR EXAMPLE- COUMADIN, PLAVIX, AGGRENOX, PLATEL, PRADAXA, OR XARELTO) NO PT MISTAKENLY INDICATED "YES" ON HER INTAKE SCREENING FORM. SHE STATES SHE "WAS STARTED ON COUMADIN BY HER EYE DOCTOR YESTERDAY FOR INCREASED EYE PRESSURE." I CALLED [facility] IN [place], IT WAS CONFIRMED THAT PATIENT IS NOT GETTING COUMADIN. I ALSO CONTACTED HER EYE DOCTOR'S OFFICE, DR. FRAGA AT [facility] FOR SIGHT, PATIENT WAS ACTUALLY STARTED ON COMBIGAN. I CONFIRMED THIS WITH PATIENT, SHE AGREES THAT COMBIGAN IS WHAT SHE IS ON AND MISTAKENLY THOUGHT IT WAS CALLED COUMADIN. . WHEN WAS YOUR LAST DOSE? DATE: TIME: . NEUROLOGY: HAVE YOU FALLEN IN THE PAST 12 MONTHS? YES PT REPORTS SHE TRIPPED OVER HER DOG EARLY THIS YEAR AND FELL TO HANDS/KNEES. NO ED VISIT, PT DENIES INJURY. LAS . ANY NEW EXTREMITY NUMBNESS OR WEAKNESS? NO . CARDIOLOGY: DO YOU HAVE A PACEMAKER OR DEFIBRILLATOR? NO . RESPIRATORY: HAVE YOU BEEN SICK IN THE PAST WEEK? NO . FEVER NO . FLU LIKE SYMPTOMS? NO . COUGH NO . INTEGUMENTARY: DO YOU HAVE ANY RASHES OR OPEN SORES? NO . ALLERGIC/IMMUNO: ARE YOU ALLERGIC TO IV DYE? NO . ANY NEW ALLERGIES? NO . PSYCHIATRIC: DO YOU HAVE THOUGHTS OF HURTING YOURSELF OR SOMEONE ELSE? NO . ARE YOU ABUSED, NEGLECTED, OR IN AN UNSAFE ENVIRONMENT? NO . ENDOCRINOLOGY: ARE YOU DIABETIC? NO . OTHER: DO YOU NEED ANY PRESCRIPTIONS? NO . IF YES, PLEASE LIST: ____ . ANY NEW PROBLEMS WITH YOUR MEDICATIONS? NO . WHEN DID YOU LAST EAT? ____ . WHEN DID YOU LAST DRINK? ____ . WHAT DID YOU LAST DRINK? ____ . NAME OF PERSON DRIVING YOU HOME? ____ . DO YOU HAVE ANY OTHER QUESTIONS OR CONCERNS NO . VITAL SIGNS WT 115.2 LBS, HT 4'11", BMI 23.27 INDEX, BP 125/59 MM HG, HR 71 /MIN, RR 16 /MIN, TEMP 96.1 F, OXYGEN SAT % 97%, SAFE IN ENV? (Y/N) YES, NA INITIALS AW 1022, REVIEWED BY: GUNNAR. EXAMINATION GENERAL EXAMINATION: GENERAL AWAKE,ALERT ,PLEASANT . PSYCH AFFECT NORMAL . LUNGS: LUNG HERNANDEZ ARE CLEAR TO AUSCULTATION BILATERALLY. GOOD MOVEMENT OF AIR . HEART: S1, S2 IN A REGULAR RATE AND RHYTHM. NO SIGNIFICANT MURMURS, RUBS OR GALLOPS NOTED . LUMBAR: PALPATION: + FOR PAIN OVER L/S SPINE. + FOR PAIN OVER L/S PARASPINALS SLE: POSITIVE OVER LEFT LEG AT 45. DIAGNOSTIC TESTS REVIEWEDMRI L/S SPINE 08/28/2018 . ASSESSMENTS INTERVERTEBRAL DISC DISORDERS WITH RADICULOPATHY, LUMBOSACRAL REGION - M51.17 (PRIMARY) TREATMENT INTERVERTEBRAL DISC DISORDERS WITH RADICULOPATHY, LUMBOSACRAL REGION NOTES: L4/5 LESI. PREVENTIVE MEDICINE PAIN CLINIC TEACHING: PROCEDURE TEACHING INFORMATIONAL HANDOUT FOR LUMBAR EPIDURAL STEROID INJECTION PRINTED AND REVIEWED WITH PATIENT AND . PRE PROCEDURE INSTRUCTIONS REVIEWED WITH PATIENT AND . PATIENT VERBALIZES UNDERSTANDING. 03/30/2019 PROCEDURE CODES FA211 ESTABILISHED PATIENT [facility] FACILITY CHARGE DISPOSITION & COMMUNICATION FOLLOW UP POST (REASON: L4/5 LESI) ELECTRONICALLY SIGNED BY MYLA LAY ON 04/17/2019 AT 04:48 PM EDT DISCLAIMER : THIS IS A VISIT SUMMARY EXTRACTED FROM THE [employer] CHART. IT IS NOT A COPY OF THE [employer] PROGRESS NOTE. EVA
== END ==
LOC: M PAIN 10:15
PROVIDERS: ATTEND Nurse Practitioner Family
DX: M51.17 Intervertebral disc disorders with radiculopathy, lumbosacral region (principal); E03.9 Hypothyroidism, unspecified; Z79.891 Long term (current) use of opiate analgesic; Z79.899 Other long term (current) drug therapy; Z88.2 Allergy status to sulfonamides; Z91.018 Allergy to other foods; Z91.040 Latex allergy status

== ENCOUNTER → 2019-04-23 | Outpatient (CLI) | payer MEDICARE, OTHER ==
[~2019-04-23] MED LIST changes: +ISOVUE-M 300 61% 15ML VIAL (Q9967) As Ordered ONE; +LIDOCAINE 1% SDV INJ 30 ML VIAL As Ordered ONE; +diazePAM 2 MG TAB As Ordered ONE; +methylPREDNISolone SUSP 40 MG/ML (DEPO-medrol) VIAL (J1030) As Ordered ONE
--- NOTE | 2019-04-23 10:47 | REP ---
Partial lumbar spine series: Two views . History: Injection procedure for pain. 33 seconds of fluoroscopy time is reported. Findings: A sequence of two fluoroscopically obtained last image hold procedural spot radiographs of the lumbar spine document needle position and contrast injection associated with injection procedure. Electronically Signed by Catalino Cerna MD 04/23/2019 10:38 A
--- NOTE | 2019-05-04 02:07 | ECWPNPC ---
PATIENT NAME: REMY CHATTERJEE : 1940 GENDER: FEMALE VISIT DATE: 04/23/2019 DISCHARGE DATE: 04/23/19 1120 VISIT LOCKED DATE TIME: PHYSICIAN: ALTHEA GILLESPIE MD RESOURCE: ALTHEA GILLESPIE MD REASON FOR APPOINTMENT 1. LESI HISTORY OF PRESENT ILLNESS HISTORY OF PRESENT ILLNESS: PAIN THE PATIENT DESCRIBES THE PAIN... FALL RISK SCREENING: SCREENING :NO FALLS REPORTED IN THE LAST YEAR CURRENT MEDICATIONS TAKING LEVOTHYROXINE SODIUM 50 MCG TABLET 1 TABLET ORALLY ONCE A DAY, NOTES: 04/21 0800 TAKING PRIMIDONE 50 MG TABLET 2 TAB(S) ORALLY THREE TIMES DAILY, NOTES: 04/22 1599 TAKING TYLENOL EXTRA STRENGTH 500 MG TABLET 1 TABLET NEEDED ORALLY EVERY 6 HRS, NOTES: NINE RECENT TAKING MULTIVITAMIN _ TABLET 1 TAB(S) ORALLY ONCE A DAY, NOTES: 04/21 0800 TAKING CALCIUM _ TABLET 600 MGS 1 TABLET ORALLY ONCE A DAY, NOTES: 04/22 1599 TAKING VITAMIN D _ TABLET 2000 UNITS 1 TABLET ORALLY ONCE A DAY, NOTES: 04/22 1599 TAKING ASPIRIN 81 MG TABLET CHEWABLE 1 TABLET ORALLY ONCE A DAY, NOTES: 04/22 1599 TAKING PROLIA 60 MG/ML SOLUTION SUBCUTANEOUS TWICE A YEAR August, NOTES: 02/2019 TAKING SIMVASTATIN 20 MG TABLET TAKE ONE TABLET BY MOUTH IN THE EVENING , NOTES: 04/21 1799 TAKING IBUPROFEN 200 MG TABLET 1 TABLET WITH FOOD OR MILK NEEDED ORALLY THREE TIMES A DAY, NOTES: NONE RECENT TAKING COMBIGAN 0.2-0.5 % SOLUTION 1 DROP INTO AFFECTED EYE OPHTHALMIC TWICE A DAY, NOTES: 04/22 TAKING METOPROLOL TARTRATE 25 MG TABLET 1 TABLET WITH FOOD ORALLY TWICE A DAY, NOTES: 04/22 1599 NOT-TAKING OXYCODONE-ACETAMINOPHEN 5-325 MG TABLET (SCHEDULE II DRUG) TAKE ONE TABLET BY MOUTH EVERY DAY NEEDED MAXIMUM DAILY DOSE 1 ORAL NOT-TAKING PYRIDIUM 100 MG TABLET 2 TABLETS AFTER MEALS ORALLY THREE TIMES A DAY MEDICATION LIST REVIEWED AND RECONCILED WITH THE PATIENT PAST MEDICAL HISTORY OSTEOPOROSIS - 11/24 DEXA, FOLLOWS WITH ENDO/FISH HYPOTHYROIDISM ESSENTIAL TREMOR HYPERLIPIDEMIA HYPNAGOGIC & HYPNOPOMIC 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 - HEMATOLOGY CHRONIC BACK PAIN CATARACTS ALLERGIES SULFA (FOR ALLERGY USE ONLY): UNKNOWN - ALLERGY LATEX (FOR ALLERGY USE ONLY): ITCH - ALLERGY BANANAS: NAUSEA/VOMITING - SIDE EFFECTS SURGICAL HISTORY D & C TONSILLECTOMY HYSTERECTOMY KIDNEY STENT KIDNEY STONE REMOVED 05/21/14 CATERIC RIGHT EYE @[facility] 05/2015 LEFT SHOULDER ARM SURGERY 03/2015 EYE BROW SURGERY BOTH EYES 11/03/15 EYE BROW SURGERY- BILATERAL EYES 06/08/16 FAMILY HISTORY FATHER: 90 YRS, DM2, DIAGNOSED WITH DIABETES MOTHER: 96 YRS, BREAST CANCER IN HER 70S SIBLINGS: ALIVE 74 YRS, FIBROMYALGIA, DEMENTIA DAUGHTER(S): ALIVE 49 YRS, RENAL CANCER, GLUTEN INTOLERANCE, LACTOSE INTOLERANCE 1 SISTER(S) . 1DAUGHTER(S) - HEALTHY. SOCIAL HISTORY GENERAL: TOBACCO USE ARE YOU A:NONSMOKER OTHERS AT HOME: SPOUSE. HOUSING: OWNS HOME. EDUCATION LEVEL OF EDUCATION:FINISHED COLLEGE DIET: REGULAR. LANGUAGE CROATIAN. DOMESTIC VIOLENCE NONE. BMI CARE GOAL FOLLOW-UP BELOW NORMAL BMI FOLLOW-UPDIETARY EDUCATION FOR WEIGHT GAIN RECREATIONAL DRUG USE DRUG USE?NO EXERCISE: NONE. LEARNING BARRIERS / SPECIAL NEEDS CHANGE FROM LAST VISIT?NO BARRIERS TO LEARNING?YES COMMENTS SHORT TERM MEMORY LOSS HEARING IMPAIRED?NO VISION IMPAIRED?YES :CORRECTIVE LENSES COGNITIVELY IMPAIRED?NO READINESS TO LEARN?YES LEARNING PREFERENCES?NO LEARNING CAPABILITIES PRESENT?YES EMOTIONAL BARRIERS?NO SPECIAL DEVICES?NO BIOMEDICAL SPECIALIST NEEDED?NO LUNG CANCER SCREENING SMOKING STATUS:NON SMOKER PAIN CLINIC PFS, CLERGY, PUBLIC HEALTH REFERRALS PFS REFERRAL NEEDED?NO CLERGY REFERRAL NEEDED?NO PUBLIC HEALTH REFERRAL NEEDED?NO HAS THE PATIENT BEEN EDUCATED REGARDING HIS/HER PLAN OF CARE?YES HAS THE PATIENT BEEN EDUCATED REGARDING PAIN, THE RISK FOR PAIN, THE IMPORTANCE OF EFFECTIVE PAIN MANAGEMENT, AND THE PAIN ASSESSMENT PROCESS?YES LATEX QUESTIONNAIRE LATEX ALLERGY : HAVE YOU EVER DEVELOPED ANY TYPE OF REACTION AFTER HANDLING LATEX PRODUCTS SUCH RUBBER GLOVES, CONDOMS, DIAPHRAGMS, BALLOONS, SOCKS, OR UNDERWEAR?YES ITCHING - PLEASE INDICATE :OTHER (DOCUMENT IN NOTES) SANITARY PADS LATEX ALLERGY : HAVE YOU EVER DEVELOPED ANY TYPE OF REACTION DURING OR AFTER DENTAL APPOINTMENT, VAGINAL/RECTAL EXAMINATION, SURGICAL PROCEDURE, OR ANY OTHER EXPOSURE?NO LATEX RISK : HAVE YOU EVER HAD ANY DIFFICULTY BREATHING OR HIVES AFTER EATING OR HANDLING ANY FRUITS, OR VEGETABLES; SUCH KIWI, BANANAS, STONE FRUITS, OR CHESTNUTSYES - PLEASE INDICATE : BANANAS VOMITING LATEX RISK : DO YOU HAVE A PREVIOUS PERSONAL HISTORY OF MORE THAN NINE SURGERIES, SPINA BIFIDA, OR REPEATED CATHERIZATIONS? NO LATEX RISK : ARE YOU FREQUENTLY EXPOSED TO LATEX PRODUCTS IN YOUR OCCUPATION?NO DATE ASKED : 04/23/2019 CAFFEINE CAFFEINE USE?YES TEA ABOUT 2 CUPS DAILY ADVANCE DIRECTIVE ADVANCE DIRECTIVE DISCUSSED WITH PATIENT:YES 04/23/2019 PT. STATES SHE HAS HCP, LIVING WILL, POA AND MOLST FORM. HCP [facility] -[phone] AD [place] NO ORTHODOX BELIEFS THAT WOULD IMPACT HEALTH CARE. MARITAL STATUS: . ALCOHOL SCREENING DID YOU HAVE A DRINK CONTAINING ALCOHOL IN THE PAST YEAR?NO POINTS0 INTERPRETATIONNEGATIVE OCCUPATION: RETIRED. SEXUAL HX HAD SEX IN THE LAST 12 MONTHS (VAGINAL, ORAL, OR ANAL)?NO HAVE YOU EVER HAD AN STD?NO PRE ADMISSION FOR PROCEDURE 02-20-19 KG03/06/2019 REVIEWED WITH PT. ADREVIEWED WITH PATIENT 03/15/19 1005 BV REVIEWED WITH PATIENT 03/30/2019 LAS. HOSPITALIZATION/MAJOR DIAGNOSTIC PROCEDURE KIDNEY STONES 06/15/14 SURGERIES CHILDBIRTH CHILDHOOD-NOT SURE FOR WHAT REVIEW OF SYSTEMS REVIEWED BY: PROVIDER: . CONSTITUTIONAL: ANY CHANGE IN YOUR MEDICAL CONDITION? NO . CHILLS NO . FEVER NO . INFECTION: DO YOU HAVE NEW INFECTIONS? NO . DO YOU HAVE HISTORY OF MRSA? NO . MUSCULOSKELETAL: ANY NEW PATTERNS OF PAIN OR NUMBNESS? NO . GASTROENTEROLOGY: ANY NEW CHANGE IN BOWEL CONTROL? NO . GENITOURINARY: ANY NEW CHANGE IN BLADDER CONTROL? NO . IS THERE A CHANCE YOU COULD BE ? NO . HEMATOLOGY/LYMPH: DO YOU TAKE ANY BLOOD THINNERS? (FOR EXAMPLE- COUMADIN, PLAVIX, AGGRENOX, PLATEL, PRADAXA, OR XARELTO) NO . WHEN WAS YOUR LAST DOSE? DATE: TIME: . NEUROLOGY: HAVE YOU FALLEN IN THE PAST 12 MONTHS? NO . ANY NEW EXTREMITY NUMBNESS OR WEAKNESS? NO . CARDIOLOGY: DO YOU HAVE A PACEMAKER OR DEFIBRILLATOR? NO . RESPIRATORY: HAVE YOU BEEN SICK IN THE PAST WEEK? NO . FEVER NO . FLU LIKE SYMPTOMS? NO . COUGH NO . INTEGUMENTARY: DO YOU HAVE ANY RASHES OR OPEN SORES? YES, DISCOLORED AREAS ON BOTH ARMS--NO OPEN AREAS NOTED . ALLERGIC/IMMUNO: ARE YOU ALLERGIC TO IV DYE? NO . ANY NEW ALLERGIES? NO . PSYCHIATRIC: DO YOU HAVE THOUGHTS OF HURTING YOURSELF OR SOMEONE ELSE? NO . ARE YOU ABUSED, NEGLECTED, OR IN AN UNSAFE ENVIRONMENT? NO . ENDOCRINOLOGY: ARE YOU DIABETIC? NO . OTHER: DO YOU NEED ANY PRESCRIPTIONS? NO . IF YES, PLEASE LIST: ____ . ANY NEW PROBLEMS WITH YOUR MEDICATIONS? NO . WHEN DID YOU LAST EAT? 04/21 1699 . WHEN DID YOU LAST DRINK? 04/21 1699 . WHAT DID YOU LAST DRINK? ICE TEA . NAME OF PERSON DRIVING YOU HOME? -TAB . DO YOU HAVE ANY OTHER QUESTIONS OR CONCERNS NO PT HAD SHINGLES VACCINES 04/08. THE RISKS OF HAVING INJECTION TODAY EXPLAINED TO PT AND SHE WISHES TO PROCEED WITH THE PROCEDURE-DR. GILLESPIE AWARE . VITAL SIGNS WT 109 LBS, HT 4'11", BMI 22.01 INDEX, BP 116/56 MM HG, HR 86 /MIN, RR 18 /MIN, TEMP 98.3 F, OXYGEN SAT % 98, SAFE IN ENV? (Y/N) Y, REVIEWED BY: AD. ASSESSMENTS INTERVERTEBRAL DISC DISORDERS WITH RADICULOPATHY, LUMBAR REGION - M51.16 (PRIMARY) PROCEDURES PRE PROCEDURE DIAGNOSIS LUMBAR DISC DISORDER WITH RADICULOPATHY POST PROCEDURE DIAGNOSIS LUMBAR DISC DISORDER WITH RADICULOPATHY PROCEDURE LUMBAR EPIDURAL STEROID INJECTION UNDER FLUOROSCOPIC GUIDANCE SURGEON DR. ALTHEA GILLESPIE ENCEPHALOGRAPHER NONE ANESTHESIA LOCAL PRE PROCEDURE NOTE THE PATIENT HAS A HISTORY OF CHRONIC LOW BACK PAIN. I EVALUATED THE PATIENT AND REVIEWED THE CHART. I WENT OVER THE RISKS, ALTERNATIVES, AND BENEFITS ASSOCIATED WITH THIS PROCEDURE. THE PATIENT WOULD LIKE TO PROCEED AND GIVE CONSENT TO PERFORMED THE PROCEDURE. THE PATIENT DENIES UNEXPLAINABLE WEIGHT LOSS, FEVER, CHILLS, OR NEW CHANGES IN URINARY OR BOWEL CONTROL. DESCRIPTION OF PROCEDURE THE PATIENT WAS BROUGHT TO THE PROCEDURE ROOM AND PLACED IN THE PRONE POSITION. THE LUMBOSACRAL AREA WAS CLEANED WITH BETADINE SOLUTION AND DRAPED ASEPTICALLY. THE PROCEDURE WAS DONE UNDER STERILE CONDITIONS. I CHECKED LATERALITY AND THE LEVEL WHERE THE PROCEDURE WAS GOING TO BE PERFORMED WITH THE PATIENT AND THE SUPPORTING STAFF AT THE MOMENT OF THE TIME OUT IN THE PROCEDURE ROOM. UNDER FLUOROSCOPIC GUIDANCE, THE TARGET POINT WAS SELECTED AT THE INTERLAMINAR LEVEL OF L4-L5. LIDOCAINE WAS USED TO NUMB THE SKIN AND THE SUBCUTANEOUS TISSUE BELOW IT. EPIDURAL TUOHY NEEDLE, 17-GAUGE, WAS ADVANCED UNDER FLUOROSCOPIC GUIDANCE AND FOLLOWING PATIENT FEEDBACK UNTIL THE EPIDURAL SPACE WAS REACHED, 7 CM DEEP INTO THE SKIN BY THE LOSS OF RESISTANCE TECHNIQUE. ISOVUE M DYE 30%, 0.25 ML, WAS INJECTED SHOWING ADEQUATE SPREAD OF THE DYE. THEN, A SOLUTION OF 3 ML OF NORMAL SALINE WITH DEPO-MEDROL 60 MG WAS INJECTED SLOWLY FOLLOWING PATIENT FEEDBACK. THERE WAS NO EVIDENCE OF BLOOD, PARESTHESIA OR CEREBROSPINAL FLUID DURING THE PROCEDURE. THE PATIENT WAS SENT TO THE RECOVERY ROOM. THE PATIENT WAS MOVING THE EXTREMITIES AND DOING WELL. THERE WAS NO COMPLICATION DURING THE PROCEDURE. FLUOROSCOPY TIME WAS 33 SECONDS. POST PROCEDURE NOTE THE PATIENT WILL BE SEEN IN A FOLLOW UP IN THE NEXT FEW WEEKS TO SEE HOW THE INJECTION IS HELPING WITH HER PAIN. I AM LOOKING FOR LONG LASTING PAIN RELIEF FOR THE PATIENT WITH THIS INJECTION. DEPENDING ON THE RESULTS OF THIS LUMBAR EPIDURAL, I MAY CONSIDER PERFORMING A TRANSFORAMINAL LUMBAR EPIDURAL IN THE FUTURE FOR THE PATIENT. INSTRUCTIONS WERE GIVEN, QUESTIONS WERE ANSWERED, AND THE PATIENT EXPRESSED UNDERSTANDING AND AGREES WITH THE PLAN. I, BARB VERAS, DOCUMENTED THE ABOVE INFORMATION ACTING A SCRIBE FOR DR. GILLESPIE. I HAVE REVIEWED THE ABOVE DOCUMENT, WRITTEN BY BARB VERAS SCRIBE AND I VERIFY THAT IT IS ACCURATE. DIAGNOSTIC IMAGING [facility] FLUORO GUIDE SPINE INJECTION (PAIN)[id number] PROCEDURE CODES 35811 LUMBAR/SACRAL W/ IMAGING 6045F RADXPS IN END [id number] PXD DISPOSITION & COMMUNICATION FOLLOW UP 2 WEEKS ELECTRONICALLY SIGNED BY ALTHEA GILLESPIE MD, MD ON 05/03/2019 AT 10:06 AM EDT DISCLAIMER : THIS IS A VISIT SUMMARY EXTRACTED FROM THE [employer] CHART. IT IS NOT A COPY OF THE [employer] PROGRESS NOTE. MTDD
== END ==
LOC: M PAIN 08:30
PROVIDERS: ATTEND Anesthesiology
DX: M51.16 Intervertebral disc disorders with radiculopathy, lumbar region (principal)
CPT/HCPCS: 62323; J1030; Q9967

== ENCOUNTER → 2019-05-18 | Outpatient (CLI) | payer MEDICARE, OTHER ==
[~2019-05-18] MED LIST changes: -ISOVUE-M 300 61% 15ML VIAL (Q9967) As Ordered ONE; -LIDOCAINE 1% SDV INJ 30 ML VIAL As Ordered ONE; -diazePAM 2 MG TAB As Ordered ONE; -methylPREDNISolone SUSP 40 MG/ML (DEPO-medrol) VIAL (J1030) As Ordered ONE
--- NOTE | 2019-05-21 10:30 | ECWPNPC ---
PATIENT NAME: REMY CHATTERJEE : 1940 GENDER: FEMALE VISIT DATE: 05/18/2019 DISCHARGE DATE: 05/18/19 1224 VISIT LOCKED DATE TIME: PHYSICIAN: MICHELE ROSE RESOURCE: MICHELE ROSE REASON FOR APPOINTMENT 1. POST LESI HISTORY OF PRESENT ILLNESS HISTORY OF PRESENT ILLNESS: PHONE CALL TO PATIENT WHO IS RECEPTIVE TO TELEPHONE VISIT TODAY. HAD L4-5 LESI ON 04/23/2019. REPORTING 2 DAYS OF IMPROVEMENT IN LOW BACK PAIN BUT NO IMPROVEMENT IN LEFT LEG RADICULAR SYMPTOMS POST PROCEDURE. RATING PAIN LEVEL IN LEFT LOW BACK / CENTRAL LOW BACK A 7/10 VAS. PAIN IS AGGRAVATED WITH WALKING AND RELIEVED SOMEWHAT AT REST. REVIEWED MRI OF THE LS SPINE AND DISCUSSED TREATMENT OPTIONS. DISCUSSED MEDICATION OPTIONS AND I WOULD LIKE HER TO START GABAPENTIN 100 MG TWICE A DAY. PAIN THE PATIENT DESCRIBES THE PAIN... FALL RISK SCREENING: SCREENING :NO FALLS REPORTED IN THE LAST YEAR CURRENT MEDICATIONS TAKING LEVOTHYROXINE SODIUM 50 MCG TABLET 1 TABLET ORALLY ONCE A DAY TAKING PRIMIDONE 50 MG TABLET 2 TAB(S) ORALLY THREE TIMES DAILY TAKING TYLENOL EXTRA STRENGTH 500 MG TABLET 1 TABLET NEEDED ORALLY EVERY 6 HRS TAKING MULTIVITAMIN _ TABLET 1 TAB(S) ORALLY ONCE A DAY TAKING CALCIUM _ TABLET 600 MGS 1 TABLET ORALLY ONCE A DAY TAKING VITAMIN D _ TABLET 2000 UNITS 1 TABLET ORALLY ONCE A DAY TAKING ASPIRIN 81 MG TABLET CHEWABLE 1 TABLET ORALLY ONCE A DAY TAKING PROLIA 60 MG/ML SOLUTION SUBCUTANEOUS TWICE A YEAR FEB/ AUGUST TAKING SIMVASTATIN 20 MG TABLET TAKE ONE TABLET BY MOUTH IN THE EVENING TAKING IBUPROFEN 200 MG TABLET 1 TABLET WITH FOOD OR MILK NEEDED ORALLY THREE TIMES A DAY TAKING COMBIGAN 0.2-0.5 % SOLUTION 1 DROP INTO AFFECTED EYE OPHTHALMIC TWICE A DAY TAKING METOPROLOL TARTRATE 25 MG TABLET 1 TABLET WITH FOOD ORALLY TWICE A DAY NOT-TAKING OXYCODONE-ACETAMINOPHEN 5-325 MG TABLET (SCHEDULE II DRUG) TAKE ONE TABLET BY MOUTH EVERY DAY NEEDED MAXIMUM DAILY DOSE 1 ORAL NOT-TAKING PYRIDIUM 100 MG TABLET 2 TABLETS AFTER MEALS ORALLY THREE TIMES A DAY MEDICATION LIST REVIEWED AND RECONCILED WITH THE PATIENT PAST MEDICAL HISTORY OSTEOPOROSIS - 11/24 DEXA, FOLLOWS WITH ENDO/FISH HYPOTHYROIDISM ESSENTIAL TREMOR HYPERLIPIDEMIA HYPNAGOGIC & HYPNOPOMIC 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 - HEMATOLOGY CHRONIC BACK PAIN CATARACTS ALLERGIES SULFA (FOR ALLERGY USE ONLY): UNKNOWN - ALLERGY LATEX (FOR ALLERGY USE ONLY): ITCH - ALLERGY BANANAS: NAUSEA/VOMITING - SIDE EFFECTS SURGICAL HISTORY D & C TONSILLECTOMY HYSTERECTOMY KIDNEY STENT KIDNEY STONE REMOVED 05/21/14 CATERIC RIGHT EYE @[facility] 05/2015 LEFT SHOULDER ARM SURGERY 03/2015 EYE BROW SURGERY BOTH EYES 11/03/15 EYE BROW SURGERY- BILATERAL EYES 06/08/16 FAMILY HISTORY FATHER: 90 YRS, DM2, DIAGNOSED WITH DIABETES MOTHER: 96 YRS, BREAST CANCER IN HER 70S SIBLINGS: ALIVE 74 YRS, FIBROMYALGIA, DEMENTIA DAUGHTER(S): ALIVE 49 YRS, RENAL CANCER, GLUTEN INTOLERANCE, LACTOSE INTOLERANCE 1 SISTER(S) . 1DAUGHTER(S) - HEALTHY. SOCIAL HISTORY GENERAL: TOBACCO USE ARE YOU A:NONSMOKER OTHERS AT HOME: SPOUSE. HOUSING: OWNS HOME. EDUCATION LEVEL OF EDUCATION:FINISHED COLLEGE DIET: REGULAR. LANGUAGE MALTESE. DOMESTIC VIOLENCE NONE. NEW PATIENT PAIN DIARY TODAY'S VISITNOTES 05/18/2019 PATIENT DESCRIBES PAIN :HAVE IT ALL THE TIME, STABBING TINGLING TO LEFT LEG. FROM 0-10, WHAT LEVEL IS YOUR PAIN TODAY?8 BMI CARE GOAL FOLLOW-UP BELOW NORMAL BMI FOLLOW-UPDIETARY EDUCATION FOR WEIGHT GAIN RECREATIONAL DRUG USE DRUG USE?NO EXERCISE: NONE. LEARNING BARRIERS / SPECIAL NEEDS CHANGE FROM LAST VISIT?NO BARRIERS TO LEARNING?YES COMMENTS SHORT TERM MEMORY LOSS HEARING IMPAIRED?NO VISION IMPAIRED?YES COGNITIVELY IMPAIRED?NO :CORRECTIVE LENSES READINESS TO LEARN?YES LEARNING PREFERENCES?NO LEARNING CAPABILITIES PRESENT?YES EMOTIONAL BARRIERS?NO SPECIAL DEVICES?NO BUILDING CONSULTANT NEEDED?NO LUNG CANCER SCREENING SMOKING STATUS:NON SMOKER PAIN CLINIC PFS, CLERGY, PUBLIC HEALTH REFERRALS PFS REFERRAL NEEDED?NO CLERGY REFERRAL NEEDED?NO PUBLIC HEALTH REFERRAL NEEDED?NO HAS THE PATIENT BEEN EDUCATED REGARDING HIS/HER PLAN OF CARE?YES HAS THE PATIENT BEEN EDUCATED REGARDING PAIN, THE RISK FOR PAIN, THE IMPORTANCE OF EFFECTIVE PAIN MANAGEMENT, AND THE PAIN ASSESSMENT PROCESS?YES LATEX QUESTIONNAIRE LATEX ALLERGY : HAVE YOU EVER DEVELOPED ANY TYPE OF REACTION AFTER HANDLING LATEX PRODUCTS SUCH RUBBER GLOVES, CONDOMS, DIAPHRAGMS, BALLOONS, SOCKS, OR UNDERWEAR?YES ITCHING - PLEASE INDICATE :OTHER (DOCUMENT IN NOTES) SANITARY PADS LATEX ALLERGY : HAVE YOU EVER DEVELOPED ANY TYPE OF REACTION DURING OR AFTER DENTAL APPOINTMENT, VAGINAL/RECTAL EXAMINATION, SURGICAL PROCEDURE, OR ANY OTHER EXPOSURE?NO LATEX RISK : HAVE YOU EVER HAD ANY DIFFICULTY BREATHING OR HIVES AFTER EATING OR HANDLING ANY FRUITS, OR VEGETABLES; SUCH KIWI, BANANAS, STONE FRUITS, OR CHESTNUTSYES - PLEASE INDICATE : BANANAS VOMITING LATEX RISK : DO YOU HAVE A PREVIOUS PERSONAL HISTORY OF MORE THAN NINE SURGERIES, SPINA BIFIDA, OR REPEATED CATHERIZATIONS? NO LATEX RISK : ARE YOU FREQUENTLY EXPOSED TO LATEX PRODUCTS IN YOUR OCCUPATION?NO DATE ASKED : 04/23/2019 CAFFEINE CAFFEINE USE?YES TEA ABOUT 2 CUPS DAILY ADVANCE DIRECTIVE ADVANCE DIRECTIVE DISCUSSED WITH PATIENT:YES PT. STATES SHE HAS HCP, LIVING WILL, POA AND MOLST FORM. HCP [facility] -[phone] BAHAI NO ADVENT BELIEFS THAT WOULD IMPACT HEALTH CARE. MARITAL STATUS: . ALCOHOL SCREENING DID YOU HAVE A DRINK CONTAINING ALCOHOL IN THE PAST YEAR?NO POINTS0 INTERPRETATIONNEGATIVE OCCUPATION: RETIRED. SEXUAL HX HAD SEX IN THE LAST 12 MONTHS (VAGINAL, ORAL, OR ANAL)?NO HAVE YOU EVER HAD AN STD?NO HOSPITALIZATION/MAJOR DIAGNOSTIC PROCEDURE KIDNEY STONES 06/15/14 SURGERIES CHILDBIRTH CHILDHOOD-NOT SURE FOR WHAT REVIEW OF SYSTEMS REVIEWED BY: PROVIDER: MICHELE LANZA . CONSTITUTIONAL: ANY CHANGE IN YOUR MEDICAL CONDITION? NO . CHILLS NO . FEVER NO . INFECTION: DO YOU HAVE NEW INFECTIONS? NO . DO YOU HAVE HISTORY OF MRSA? NO . MUSCULOSKELETAL: ANY NEW PATTERNS OF PAIN OR NUMBNESS? NO . GASTROENTEROLOGY: ANY NEW CHANGE IN BOWEL CONTROL? NO . GENITOURINARY: ANY NEW CHANGE IN BLADDER CONTROL? NO . IS THERE A CHANCE YOU COULD BE ? NO . HEMATOLOGY/LYMPH: DO YOU TAKE ANY BLOOD THINNERS? (FOR EXAMPLE- COUMADIN, PLAVIX, AGGRENOX, PLATEL, PRADAXA, OR XARELTO) NO . WHEN WAS YOUR LAST DOSE? DATE: TIME: . NEUROLOGY: HAVE YOU FALLEN IN THE PAST 12 MONTHS? YES, STATES PRIOR TO LAST VISIT, DISCUSSED AT PREVIOUS VISIT . ANY NEW EXTREMITY NUMBNESS OR WEAKNESS? NO . CARDIOLOGY: DO YOU HAVE A PACEMAKER OR DEFIBRILLATOR? NO . RESPIRATORY: HAVE YOU BEEN SICK IN THE PAST WEEK? NO . FEVER NO . FLU LIKE SYMPTOMS? NO . COUGH NO . INTEGUMENTARY: DO YOU HAVE ANY RASHES OR OPEN SORES? NO . ALLERGIC/IMMUNO: ARE YOU ALLERGIC TO IV DYE? NO . ANY NEW ALLERGIES? NO . PSYCHIATRIC: DO YOU HAVE THOUGHTS OF HURTING YOURSELF OR SOMEONE ELSE? NO . ARE YOU ABUSED, NEGLECTED, OR IN AN UNSAFE ENVIRONMENT? NO . ENDOCRINOLOGY: ARE YOU DIABETIC? NO . OTHER: DO YOU NEED ANY PRESCRIPTIONS? NO . IF YES, PLEASE LIST: ____ . ANY NEW PROBLEMS WITH YOUR MEDICATIONS? NO . WHEN DID YOU LAST EAT? ____ . WHEN DID YOU LAST DRINK? ____ . WHAT DID YOU LAST DRINK? ____ . NAME OF PERSON DRIVING YOU HOME? ____ . DO YOU HAVE ANY OTHER QUESTIONS OR CONCERNS YES, STATES SHE IS IN A LOT OF PAIN, PROCEDURES SO FAR SEEM TO ONLY HELP FOR A FEW DAYS. WOULD LIKE TO DISCUSS MEDICATIONS OR OTHER FORMS OF PAIN CONTROL . ASSESSMENTS INTERVERTEBRAL DISC DISORDERS WITH RADICULOPATHY, LUMBOSACRAL REGION - M51.17 (PRIMARY) TREATMENT INTERVERTEBRAL DISC DISORDERS WITH RADICULOPATHY, LUMBOSACRAL REGION START GABAPENTIN CAPSULE, 100 MG, 1 CAPSULE, ORALLY, BID, 30 DAY(S), 60, REFILLS 1 NOTES: ADVISED TO START GABAPENTIN 100 MG AT BEDTIME X3 DAYS, THEN INCREASE TO TWICE A DAY. ADVISED ON POTENTIAL SIDE EFFECTS OF DIZZINESS AND FATIGUE. OUR PLAN IS TO SLOWLY INCREASE THIS TOLERATED. FOLLOW-UP WILL BE SCHEDULED IN 4-6 WEEKS. APPROXIMATELY 11 MINUTES OF TELEPHONE EVALUATION AND MANAGEMENT WAS SPENT ON THIS VISIT. OTHERS NOTES: VITALS NOT OBTAINED DUE TO VIRTUAL VISIT. DISPOSITION & COMMUNICATION FOLLOW UP 6 WEEKS (REASON: MED MGMNT LBP) ELECTRONICALLY SIGNED BY MYLA LAY ON 05/18/2019 AT 11:53 AM EDT DISCLAIMER : THIS IS A VISIT SUMMARY EXTRACTED FROM THE [employer] CHART. IT IS NOT A COPY OF THE [employer] PROGRESS NOTE. EVA
== END ==
LOC: M PAIN 10:30
PROVIDERS: ATTEND Nurse Practitioner Family
DX: M51.17 Intervertebral disc disorders with radiculopathy, lumbosacral region (principal); E03.9 Hypothyroidism, unspecified; Z79.82 Long term (current) use of aspirin; Z79.899 Other long term (current) drug therapy; Z88.2 Allergy status to sulfonamides; Z91.018 Allergy to other foods; Z91.040 Latex allergy status

== ENCOUNTER → 2019-06-26 | Outpatient (REF) | payer MEDICARE, OTHER ==
[2019-06-26 18:25] LABS: FREE T4 1.02 NG/DL (0.76-1.46); THYROID STIMULATING HORMONE 1.55 uIU/ML (0.358-3.740)
== END ==
LOC: M LABDRWAD 16:36
PROVIDERS: ATTEND Internal Medicine Endocrinology, Diabetes & Metabolism
DX: E03.9 Hypothyroidism, unspecified (principal)

== ENCOUNTER → 2019-07-11 | Outpatient (CLI) | payer MEDICARE, OTHER ==
--- NOTE | 2019-07-13 00:48 | ECWPNPC ---
PATIENT NAME: REMY CHATTERJEE : 1940 GENDER: FEMALE VISIT DATE: 07/11/2019 DISCHARGE DATE: 07/11/19928 VISIT LOCKED DATE TIME: PHYSICIAN: MICHELE ROSE RESOURCE: MICHELE ROSE REASON FOR APPOINTMENT 1. MED MGMNT LBP PAT DONE HISTORY OF PRESENT ILLNESS GENERAL: PATIENT IS AGREEABLE TO TELEPHONE VISIT TODAY. THIS IS A FOLLOW-UP OF CHRONIC LOW BACK PAIN. GABAPENTIN 100 MG MORNING AND NIGHT WAS STARTED IN MAY. SHE FEELS IT IS HELPING A LITTLE WITH HER LOW BACK PAIN. DENIES IMPROVEMENT WITH HER LEFT LEG NUMBNESS AND TINGLING. DISCUSSED MEDICATION TREATMENT PLAN. -. PAIN SCREENING: PATIENT HAS A COMPLAINT OF ACUTE OR CHRONIC PAIN :YES LOCATION OF PAIN:LOW BACK, LEG(S), FEET LEFT LEG INTENSITY OF PAIN (SCALE OF 1 TO 10):8 WHAT DOES YOUR PAIN FEEL LIKE: BACK- SORE, LEFT LEG-NUMBNESS AND TINGLING DURATION:CONTINOUS, CONSTANT, ALL DAY PAIN IS INCREASED BY:ACTIVITIES, PROLONGED STANDING PAIN IS DECREASED BY:USE OF PAIN MEDICATIONS LYING DOWN FLAT, GABAPENTIN PAIN HAS INTERFERED WITH THE FOLLOWING:WALKING ABILITY, HOUSEWORK, RELATIONSHIP WITH OTHERS, ENJOYMENT OF LIFE PLAN/GOALS/TREATMENT/INTERVENTION/FOLLOW UP:SEE PLAN FALL RISK SCREENING: SCREENING :NO FALLS REPORTED IN THE LAST YEAR DEPRESSION SCREENING: PHQ-2 (2015 EDITION) LITTLE INTEREST OR PLEASURE IN DOING THINGS?NOT AT ALL FEELING DOWN, DEPRESSED, OR HOPELESS?NOT AT ALL TOTAL SCORE0 NURSING NOTE: -. PAIN CENTER INTAKE QUESTIONS: DO YOU HAVE A HISTORY OF MRSA? :NO DO YOU TAKE A BLOOD THINNERS? :NO DO YOU HAVE ANY BLEEDING DISORDERS? :NO ANY NEW NUMBNESS OR WEAKNESS IN YOUR LEGS OR ARMS? :NO ANY PACEMAKER,DEFIBRILLATOR, OR DORSAL COLUMN STIMULATOR? :NO DO YOU HAVE ANY RASHES OR OPEN SORES? :NO ARE YOU ALLERGIC TO IV DYE? :NO ARE YOU DIABETIC? :NO ANY NEW PROBLEMS WITH YOUR MEDICATIONS? :NO HAVE YOU RECEIVED A VACCINE IN THE PAST 30 DAYS? :NO DO YOU PLAN TO RECEIVE A VACCINE IN THE NEXT 21 DAYS? :NO DO YOU NEED ANY PRESCRIPTION? :YES GABAPENTIN DO YOU TAKE ANY IMMUNOSUPPRESSIVE MEDICATIONS? :NO CURRENT MEDICATIONS TAKING LEVOTHYROXINE SODIUM 50 MCG TABLET 1 TABLET ORALLY ONCE A DAY TAKING PRIMIDONE 50 MG TABLET 2 TAB(S) ORALLY THREE TIMES DAILY TAKING TYLENOL EXTRA STRENGTH 500 MG TABLET 1 TABLET NEEDED ORALLY EVERY 6 HRS TAKING MULTIVITAMIN _ TABLET 1 TAB(S) ORALLY ONCE A DAY TAKING CALCIUM _ TABLET 600 MGS 1 TABLET ORALLY ONCE A DAY TAKING VITAMIN D _ TABLET 2000 UNITS 1 TABLET ORALLY ONCE A DAY TAKING ASPIRIN 81 MG TABLET CHEWABLE 1 TABLET ORALLY ONCE A DAY TAKING PROLIA 60 MG/ML SOLUTION SUBCUTANEOUS TWICE A YEAR August TAKING SIMVASTATIN 20 MG TABLET TAKE ONE TABLET BY MOUTH IN THE EVENING TAKING IBUPROFEN 200 MG TABLET 1 TABLET WITH FOOD OR MILK NEEDED ORALLY THREE TIMES A DAY TAKING COMBIGAN 0.2-0.5 % SOLUTION 1 DROP INTO AFFECTED EYE OPHTHALMIC TWICE A DAY TAKING METOPROLOL TARTRATE 25 MG TABLET 1 TABLET WITH FOOD ORALLY TWICE A DAY TAKING GABAPENTIN 100 MG CAPSULE 1 CAPSULE ORALLY BID NOT-TAKING OXYCODONE-ACETAMINOPHEN 5-325 MG TABLET (SCHEDULE II DRUG) TAKE ONE TABLET BY MOUTH EVERY DAY NEEDED MAXIMUM DAILY DOSE 1 ORAL NOT-TAKING PYRIDIUM 100 MG TABLET 2 TABLETS AFTER MEALS ORALLY THREE TIMES A DAY MEDICATION LIST REVIEWED AND RECONCILED WITH THE PATIENT PAST MEDICAL HISTORY OSTEOPOROSIS - 11/24 DEXA, FOLLOWS WITH ENDO/FISH HYPOTHYROIDISM ESSENTIAL TREMOR HYPERLIPIDEMIA HYPNAGOGIC & HYPNOPOMIC 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 - HEMATOLOGY CHRONIC BACK PAIN CATARACTS ALLERGIES SULFA (FOR ALLERGY USE ONLY): UNKNOWN - ALLERGY LATEX (FOR ALLERGY USE ONLY): ITCH - ALLERGY BANANAS: NAUSEA/VOMITING - SIDE EFFECTS SURGICAL HISTORY D & C TONSILLECTOMY HYSTERECTOMY KIDNEY STENT KIDNEY STONE REMOVED 05/21/14 CATERIC RIGHT EYE @[facility] 05/2015 LEFT SHOULDER ARM SURGERY 03/2015 EYE BROW SURGERY BOTH EYES 11/03/15 EYE BROW SURGERY- BILATERAL EYES 06/08/16 FAMILY HISTORY FATHER: 90 YRS, DM2, DIAGNOSED WITH DIABETES MOTHER: 96 YRS, BREAST CANCER IN HER 70S SIBLINGS: ALIVE 74 YRS, FIBROMYALGIA, DEMENTIA DAUGHTER(S): ALIVE 49 YRS, RENAL CANCER, GLUTEN INTOLERANCE, LACTOSE INTOLERANCE 1 SISTER(S) . 1DAUGHTER(S) - HEALTHY. SOCIAL HISTORY GENERAL: TOBACCO USE ARE YOU A:NONSMOKER LATEX QUESTIONNAIRE LATEX ALLERGY : HAVE YOU EVER DEVELOPED ANY TYPE OF REACTION AFTER HANDLING LATEX PRODUCTS SUCH RUBBER GLOVES, CONDOMS, DIAPHRAGMS, BALLOONS, SOCKS, OR UNDERWEAR?YES ITCHING - PLEASE INDICATE :OTHER (DOCUMENT IN NOTES) SANITARY PADS LATEX ALLERGY : HAVE YOU EVER DEVELOPED ANY TYPE OF REACTION DURING OR AFTER DENTAL APPOINTMENT, VAGINAL/RECTAL EXAMINATION, SURGICAL PROCEDURE, OR ANY OTHER EXPOSURE?NO LATEX RISK : HAVE YOU EVER HAD ANY DIFFICULTY BREATHING OR HIVES AFTER EATING OR HANDLING ANY FRUITS, OR VEGETABLES; SUCH KIWI, BANANAS, STONE FRUITS, OR CHESTNUTSYES - PLEASE INDICATE : BANANAS VOMITING LATEX RISK : DO YOU HAVE A PREVIOUS PERSONAL HISTORY OF MORE THAN NINE SURGERIES, SPINA BIFIDA, OR REPEATED CATHERIZATIONS? NO LATEX RISK : ARE YOU FREQUENTLY EXPOSED TO LATEX PRODUCTS IN YOUR OCCUPATION?NO DATE ASKED : 07/10/2019 LUNG CANCER SCREENING SMOKING STATUS:NON SMOKER BMI CARE GOAL FOLLOW-UP BELOW NORMAL BMI FOLLOW-UPDIETARY EDUCATION FOR WEIGHT GAIN ALCOHOL SCREENING DID YOU HAVE A DRINK CONTAINING ALCOHOL IN THE PAST YEAR?NO POINTS0 INTERPRETATIONNEGATIVE RECREATIONAL DRUG USE DRUG USE?NO CAFFEINE CAFFEINE USE?YES TEA ABOUT 2 CUPS DAILY SEXUAL HX HAD SEX IN THE LAST 12 MONTHS (VAGINAL, ORAL, OR ANAL)?NO HAVE YOU EVER HAD AN STD?NO JEHOVAH'S WITNESS NO JEHOVAH'S WITNESS BELIEFS THAT WOULD IMPACT HEALTH CARE. LANGUAGE MALTESE. EDUCATION LEVEL OF EDUCATION:FINISHED COLLEGE LEARNING BARRIERS / SPECIAL NEEDS CHANGE FROM LAST VISIT?NO BARRIERS TO LEARNING?YES COMMENTS SHORT TERM MEMORY LOSS HEARING IMPAIRED?NO VISION IMPAIRED?YES COGNITIVELY IMPAIRED?NO :CORRECTIVE LENSES READINESS TO LEARN?YES LEARNING PREFERENCES?NO LEARNING CAPABILITIES PRESENT?YES EMOTIONAL BARRIERS?NO SPECIAL DEVICES?NO PATIENT RESOURCE COORDINATOR NEEDED?NO DOMESTIC VIOLENCE NONE. OCCUPATION: RETIRED. DIET: REGULAR. EXERCISE: NONE. MARITAL STATUS: . OTHERS AT HOME: SPOUSE. NEW PATIENT PAIN DIARY TODAY'S VISITNOTES 05/18/2019 PATIENT DESCRIBES PAIN :HAVE IT ALL THE TIME, STABBING TINGLING TO LEFT LEG. FROM 0-10, WHAT LEVEL IS YOUR PAIN TODAY?8 PAIN CLINIC PFS, CLERGY, PUBLIC HEALTH REFERRALS PFS REFERRAL NEEDED?NO CLERGY REFERRAL NEEDED?NO PUBLIC HEALTH REFERRAL NEEDED?NO HAS THE PATIENT BEEN EDUCATED REGARDING HIS/HER PLAN OF CARE?YES HAS THE PATIENT BEEN EDUCATED REGARDING PAIN, THE RISK FOR PAIN, THE IMPORTANCE OF EFFECTIVE PAIN MANAGEMENT, AND THE PAIN ASSESSMENT PROCESS?YES HOUSING: OWNS HOME. ADVANCE DIRECTIVE ADVANCE DIRECTIVE DISCUSSED WITH PATIENT:YES PT. STATES SHE HAS HCP, LIVING WILL, POA AND MOLST FORM. HCP [facility] -[phone] HOSPITALIZATION/MAJOR DIAGNOSTIC PROCEDURE KIDNEY STONES 06/15/14 SURGERIES CHILDBIRTH CHILDHOOD-NOT SURE FOR WHAT REVIEW OF SYSTEMS CONSTITUTIONAL: ANY RECENT FEVER OR ILLNESS NO . CHILLS NO . GASTROENTEROLOGY: BOWEL INCONTINENCE NO . ANY NEW CHANGE IN BOWEL CONTROL? NO . ABDOMINAL PAIN NO . CONSTIPATION NO . GENITOURINARY: ANY NEW CHANGE IN BLADDER CONTROL? NO . IS THERE A CHANCE YOU COULD BE ? NO . URINARY INCONTINENCE NO . CARDIOLOGY: CHEST PRESSURE NO . CHEST PAIN NO . RESPIRATORY: COUGH NO . SHORTNESS OF BREATH NO . ASSESSMENTS INTERVERTEBRAL DISC DISORDERS WITH RADICULOPATHY, LUMBOSACRAL REGION - M51.17 (PRIMARY) TREATMENT INTERVERTEBRAL DISC DISORDERS WITH RADICULOPATHY, LUMBOSACRAL REGION INCREASE GABAPENTIN CAPSULE, 100 MG, 2 CAP, ORALLY, BID, 30 DAY(S), 120, REFILLS 1 NOTES: RECOMMEND INCREASING GABAPENTIN 100MG TO 2 CAPSULES TWICE A DAY. PATIENT VOICES UNDERSTANDING OF TREATMENT PLAN. FOLLOW-UP AT PAIN CENTER IN 2 MONTHS. TOTAL TIME SPENT DURING TELEPHONE VISIT WAS APPROXIMATELY 11 MINUTES. OTHERS NOTES: VITALS NOT OBTAINED DUE TO VIRTUAL VISIT, PRE SCREENING COMPLETED, 07/10/19, NA. DISPOSITION & COMMUNICATION FOLLOW UP 2 MONTHS IN CLINIC MED MANAGEMENT LOW BACK PAIN, LEFT LEG RADICULAR SYMPTOMS (REASON: LOW BACK PAIN, LEFT LEG RADICULAR SYMPTOMS) ELECTRONICALLY SIGNED BY MYLA LAY ON 07/12/2019 AT 09:06 AM EDT DISCLAIMER : THIS IS A VISIT SUMMARY EXTRACTED FROM THE [employer] CHART. IT IS NOT A COPY OF THE [employer] PROGRESS NOTE. EVA
== END ==
LOC: M PAIN 08:45
PROVIDERS: ATTEND Nurse Practitioner Family
DX: M51.17 Intervertebral disc disorders with radiculopathy, lumbosacral region (principal)

== ENCOUNTER 2019-07-25 10:16 | Emergency (ER) | payer MEDICARE, OTHER ==
[~2019-07-25] VITALS: Ht 142.2 cm; Wt 49.5 kg
[2019-07-25] MEDS ORDERED: GABA-1171 PO (10:35)
[2019-07-25 11:25] LABS: BASO % 0.7 % (0.0-1.0); EOS # 0.1 10^3/uL (0.0-0.5); EOS % 2.5 % (0.0-3.0); HEMATOCRIT 38.4 % (36.0-47.0); LYMPH # 1.5 10^3/uL (1.5-5.0); LYMPH % 34.4 % (24.0-44.0); MEAN CORPUSCULAR HEMOGLOBIN 31.9 pg (27.0-33.0); MEAN CORPUSCULAR HGB CONC 33.9 g/dl (32.0-36.5); MEAN CORPUSCULAR VOLUME 94.1 fl (80.0-96.0); MONO # 0.3 10^3/uL (0.0-0.8); MONO % 5.8 % (0.0-5.0); NEUTROPHILS # 2.4 10^3/uL (1.5-8.5); NEUTROPHILS % 56.4 % (36.0-66.0); PLATELET COUNT, AUTOMATED 231 10^3/uL (150-450); RED BLOOD COUNT 4.08 10^6/uL (4.00-5.40); WHITE BLOOD COUNT 4.3 10^3/uL (4.0-10.0)
[2019-07-25 11:52] LABS: BLOOD UREA NITROGEN 13 MG/DL (7-18); CALCIUM LEVEL 8.5 MG/DL (8.8-10.2); CARBON DIOXIDE LEVEL 28 MEQ/L (21-32); CHLORIDE LEVEL 109 MEQ/L (98-107); CREATININE FOR GFR 0.57 MG/DL (0.55-1.30); GLOMERULAR FILTRATION RATE > 60.0 (>39); GLUCOSE, FASTING 95 MG/DL (70-100); POTASSIUM SERUM 4.1 MEQ/L (3.5-5.1); SODIUM LEVEL 142 MEQ/L (136-145)
--- NOTE | 2019-07-25 12:48 | REP ---
CT LUMBAR SPINE: 07/25/2019 INDICATION: Low back pain. TECHNIQUE: Unenhanced axial CT images of the lumbar spine were obtained with coronal and sagittal reconstructions provided. COMPARISON: MRI lumbar spine dated 08/28/2018. FINDINGS: Dextroscoliosis of the lumbar spine is present with the convexity centered at L4-L5. Vacuum disc phenomena is noted at L1-2. There is disc space narrowing throughout. There is minimal retrolisthesis of L1 on L2 and L2 on L3. There is no acute fracture, subluxation or dislocation. No hemorrhage or additional acute pathology is detected within the spinal canal. There is no evidence of severe spinal canal narrowing. The paraspinal soft tissues are unremarkable with the exception of aortoiliac atherosclerotic disease. IMPRESSION: No acute osseous injury of the lumbar spine. Electronically Signed by Cristopher Payne DO 07/27/2019 08:38 A
[2019-07-25 13:13] VITALS: BP 129/82
== END 2019-07-25 13:27 | disposition home or self-care (01) ==
LOC: EDBD 10:16 → M ED 10:16
DX: G89.29 Other chronic pain (principal); M54.9 Dorsalgia, unspecified; I10 Essential (primary) hypertension; E78.5 Hyperlipidemia, unspecified; E03.9 Hypothyroidism, unspecified; Z87.442 Personal history of urinary calculi; Z88.2 Allergy status to sulfonamides; Z91.018 Allergy to other foods; Z91.040 Latex allergy status

== ENCOUNTER → 2019-08-02 | Outpatient (REF) | payer MEDICARE, OTHER ==
[~2019-08-02] MED LIST changes: -ALEN70TA74 PO; +ALEN70TA82 PO; +ASPI-161 PO; +ASPI-281 PO; -ASPI81CH17 PO; +CALC-211 PO; -CALCTAB7 PO; +COMB0.2S OU; +GABA-1171 PO; +MEMA1TAB3 PO; +METO1TAB87 PO; -QUET1TAB7 PO; +QUET25TA3 PO
[2019-08-02 14:24] LABS: ALBUMIN 3.7 GM/DL (3.2-5.2); ALT/SGPT 37 U/L (12-78); BILIRUBIN,TOTAL 0.1 MG/DL (0.2-1.0); BLOOD UREA NITROGEN 19 MG/DL (7-18); CALCIUM LEVEL 10.2 MG/DL (8.8-10.2); CARBON DIOXIDE LEVEL 31 MEQ/L (21-32); CHLORIDE LEVEL 110 MEQ/L (98-107); CHOLESTEROL LEVEL 233 MG/DL (<200); CREATININE FOR GFR 0.71 MG/DL (0.55-1.30); FREE T4 0.87 NG/DL (0.76-1.46); GLOMERULAR FILTRATION RATE > 60.0 (>39); GLUCOSE, FASTING 93 MG/DL (70-100); HDL CHOLESTEROL 64 MG/DL (>40); LDL CHOLESTEROL 152 MG/DL (<100); NON-HDL-C 169 MG/DL; POTASSIUM SERUM 4.5 MEQ/L (3.5-5.1); SODIUM LEVEL 144 MEQ/L (136-145); THYROID STIMULATING HORMONE 0.821 uIU/ML (0.358-3.740); TOTAL PROTEIN 7.1 GM/DL (6.4-8.2); TRIGLYCERIDES LEVEL 84 MG/DL (<150)
[2019-08-02 14:25] LABS: BASO % 0.5 % (0.0-1.0); EOS # 0.1 10^3/uL (0.0-0.5); EOS % 1.6 % (0.0-3.0); HEMOGLOBIN 13.8 g/dl (12.0-15.5); LYMPH # 1.7 10^3/uL (1.5-5.0); LYMPH % 31.5 % (24.0-44.0); MEAN CORPUSCULAR HEMOGLOBIN 31.6 pg (27.0-33.0); MEAN CORPUSCULAR HGB CONC 32.1 g/dl (32.0-36.5); MEAN CORPUSCULAR VOLUME 98.4 fl (80.0-96.0); MONO # 0.3 10^3/uL (0.0-0.8); MONO % 5.3 % (0.0-5.0); NEUTROPHILS # 3.3 10^3/uL (1.5-8.5); NEUTROPHILS % 60.9 % (36.0-66.0); PLATELET COUNT, AUTOMATED 259 10^3/uL (150-450); RED BLOOD COUNT 4.37 10^6/uL (4.00-5.40); WHITE BLOOD COUNT 5.5 10^3/uL (4.0-10.0)
[2019-08-02 14:38] LABS: TOTAL 25(OH) VITAMIN D 77.7 NG/ML (30.0-100.0)
[2019-08-02 14:45] LABS: HEMOGLOBIN A1c 5.5 %
== END ==
LOC: M SFHCADAM 09:41
DX: E78.2 Mixed hyperlipidemia (principal); M81.0 Age-related osteoporosis without current pathological fracture; E03.9 Hypothyroidism, unspecified; R73.01 Impaired fasting glucose

== ENCOUNTER → 2019-09-10 | Outpatient (POV) | payer MEDICARE, OTHER ==
[~2019-09-10] MED LIST changes: +ALEN70TA74 PO; -ALEN70TA82 PO; -ASPI-161 PO; -ASPI-281 PO; +ASPI81CH17 PO; -COMB0.2S OU; +QUET1TAB7 PO; -QUET25TA3 PO
== END ==
LOC: M PAIN 09:00
PROVIDERS: ATTEND Nurse Practitioner Family
DX: M54.5 Low back pain (principal)

== ENCOUNTER → 2019-11-13 | Outpatient (CLI) | payer MEDICARE, OTHER ==
[~2019-11-13] MED LIST changes: -MEMA1TAB3 PO; -METO1TAB87 PO
--- NOTE | 2019-11-13 11:13 | REPMRS ---
Patient History The patient states she had a clinical breast exam in August 2019. Family history of breast cancer at age 70 in mother, breast cancer at age 80 in maternal aunt, breast cancer at age 50 or over in paternal aunt, breast cancer at age 50 or over in maternal cousin. Took hormonal contraceptives for 2 years. 3D TOMOSYNTHESIS WAS PERFORMED. The [facility] lifetime risk for breast cancer is 9.4%. VOLPARA DENSITY C. Digital Woman Screen Mammo: November 13, 2019 - Exam #: [id number] Bilateral CC and MLO view(s) were taken. Technologist: Samara Santacruz, Technologist Prior study comparison: November 08, 2018, bilateral digital woman screen mammo performed at [facility] [place]. July 09, 2013, bilateral bilat screen digital mammo, performed at [facility] ([facility] FINDINGS: The breast tissue is heterogeneously dense. This may lower the sensitivity of mammography. There has been no change in the appearance of the mammogram from the prior studies. There is a moderate amount of residual fibroglandular tissue which is fairly symmetric. There is no interval development of dominant mass, areas of architectural distortion, or clustered microcalcification typical of malignancy. Assessment: BI-RADS/ACR category 1 mammogram. Negative Mammogram. Recommendation Routine screening mammogram in 1 year (for women over age 40). This mammogram was interpreted with the aid of an FDA-approved computer-aided dectection system. Electronically Signed By: Jaleel Benites MD 11/13/19 0699
== END ==
LOC: M WHC 09:58
PROVIDERS: ATTEND Physician Assistant Medical
DX: Z12.31 Encounter for screening mammogram for malignant neoplasm of breast (principal); Z80.3 Family history of malignant neoplasm of breast; Z92.0 Personal history of contraception

== ENCOUNTER → 2019-12-19 | Outpatient (CLI) | payer MEDICARE, OTHER ==
[~2019-12-19] MED LIST changes: +ASPI-161 PO; +COMB0.2S OU; +MEMA1TAB3 PO; +METO1TAB87 PO
--- NOTE | 2019-12-21 03:12 | ECWPNPC ---
PATIENT NAME: REMY CHATTERJEE : 1940 GENDER: FEMALE VISIT DATE: 12/19/2019 DISCHARGE DATE: 12/19/19953 VISIT LOCKED DATE TIME: PHYSICIAN: MICHELE ROSE PHYSICIAN PAGER NO: ACTIVE RESOURCE: MICHELE ROSE REASON FOR APPOINTMENT 1. MED MANAGEMENT HISTORY OF PRESENT ILLNESS GENERAL: HERE FOR FOLLOW-UP OF CHRONIC LOW BACK PAIN AND LEFT LEG RADICULAR SYMPTOMS. TAKING GABAPENTIN 200 MG MORNING AND NIGHT. STATES SHE THOUGHT IT WAS HELPFUL. STATES SHE STOPPED IT A WEEK AGO BECAUSE SHE DIDN'T KNOW WHY SHE WAS TAKING IT. TODAY WE DISCUSSED THE USE OF GABAPENTIN AND SHE WANTS TO RESTART THIS AGAIN. REVIEWED MRI OF THE LS-SPINE. PATIENT HAS TRIED EPIDURAL STEROID INJECTION IN THE PAST WITH NO SIGNIFICANT CHANGE IN HER LEFT LEG RADICULAR SYMPTOMS.-. FALL RISK SCREENING: SCREENING :NO FALLS REPORTED IN THE LAST YEAR PAIN SCREENING: PATIENT HAS A COMPLAINT OF ACUTE OR CHRONIC PAIN :YES INTENSITY OF PAIN (SCALE OF 1 TO 10):0 NURSING NOTE: -. PAIN CENTER INTAKE QUESTIONS: DO YOU HAVE A HISTORY OF MRSA? :NO DO YOU TAKE A BLOOD THINNERS? :NO DO YOU HAVE ANY BLEEDING DISORDERS? :NO ANY NEW NUMBNESS OR WEAKNESS IN YOUR LEGS OR ARMS? :NO ANY PACEMAKER,DEFIBRILLATOR, OR DORSAL COLUMN STIMULATOR? :NO DO YOU HAVE ANY RASHES OR OPEN SORES? :NO ARE YOU ALLERGIC TO IV DYE? :NO ARE YOU DIABETIC? :NO ANY NEW PROBLEMS WITH YOUR MEDICATIONS? :NO HAVE YOU RECEIVED A VACCINE IN THE PAST 30 DAYS? :NO DO YOU PLAN TO RECEIVE A VACCINE IN THE NEXT 21 DAYS? :NO DO YOU NEED ANY PRESCRIPTION? :NO DO YOU TAKE ANY IMMUNOSUPPRESSIVE MEDICATIONS? :NO IS THERE A CHANCE YOU COULD BE ? :NO ARE YOU BREAST FEEDING? :NO CURRENT MEDICATIONS TAKING LEVOTHYROXINE SODIUM 50 MCG TABLET 1 TABLET ORALLY ONCE A DAY TAKING PRIMIDONE 50 MG TABLET 2 TAB(S) ORALLY THREE TIMES DAILY TAKING TYLENOL EXTRA STRENGTH 500 MG TABLET 1 TABLET NEEDED ORALLY EVERY 6 HRS TAKING MULTIVITAMIN _ TABLET 1 TAB(S) ORALLY ONCE A DAY TAKING CALCIUM _ TABLET 600 MGS 1 TABLET ORALLY ONCE A DAY TAKING VITAMIN D _ TABLET 2000 UNITS 1 TABLET ORALLY ONCE A DAY TAKING ASPIRIN 81 MG TABLET CHEWABLE 1 TABLET ORALLY ONCE A DAY TAKING PROLIA 60 MG/ML SOLUTION SUBCUTANEOUS TWICE A YEAR August TAKING IBUPROFEN 200 MG TABLET 1 TABLET WITH FOOD OR MILK NEEDED ORALLY THREE TIMES A DAY TAKING COMBIGAN 0.2-0.5 % SOLUTION 1 DROP INTO AFFECTED EYE OPHTHALMIC TWICE A DAY TAKING METOPROLOL TARTRATE 25 MG TABLET 1 TABLET WITH FOOD ORALLY TWICE A DAY TAKING KETOTIFEN FUMARATE 0.025 % SOLUTION 1 DROP INTO AFFECTED EYE OPHTHALMIC TWICE A DAY TAKING SIMVASTATIN 40 MG TABLET 1 TABLET IN THE EVENING ORALLY BEFORE BEDTIME TAKING MEMANTINE HCL 5 MG TABLET 1 TABLET ORALLY ONCE A DAY, NOTES: NOT SURE OF DOSE NOT-TAKING GABAPENTIN 100 MG CAPSULE 2 CAP ORALLY BID NOT-TAKING OXYCODONE-ACETAMINOPHEN 5-325 MG TABLET (SCHEDULE II DRUG) TAKE ONE TABLET BY MOUTH EVERY DAY NEEDED MAXIMUM DAILY DOSE 1 ORAL NOT-TAKING PYRIDIUM 100 MG TABLET 2 TABLETS AFTER MEALS ORALLY THREE TIMES A DAY MEDICATION LIST REVIEWED AND RECONCILED WITH THE PATIENT PAST MEDICAL HISTORY OSTEOPOROSIS - 11/24 DEXA, FOLLOWS WITH ENDO/FISH HYPOTHYROIDISM ESSENTIAL TREMOR HYPERLIPIDEMIA. 08/2019 ASVCD 18.3%, INCREASE STATIN. HYPNAGOGIC & HYPNOPOMIC 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 - HEMATOLOGY CHRONIC BACK PAIN CATARACTS ALLERGIES SULFA (FOR ALLERGY USE ONLY): UNKNOWN - ALLERGY LATEX (FOR ALLERGY USE ONLY): ITCH - ALLERGY BANANAS: NAUSEA/VOMITING - SIDE EFFECTS SURGICAL HISTORY D & C TONSILLECTOMY HYSTERECTOMY KIDNEY STENT KIDNEY STONE REMOVED 05/21/14 CATERIC RIGHT EYE @[facility] 05/2015 LEFT SHOULDER ARM SURGERY 03/2015 EYE BROW SURGERY BOTH EYES 11/03/15 EYE BROW SURGERY- BILATERAL EYES 06/08/16 FAMILY HISTORY FATHER: 90 YRS, DM2, DIAGNOSED WITH DIABETES MOTHER: 96 YRS, BREAST CANCER IN HER 70S SIBLINGS: ALIVE 74 YRS, FIBROMYALGIA, DEMENTIA DAUGHTER(S): ALIVE 49 YRS, RENAL CANCER, GLUTEN INTOLERANCE, LACTOSE INTOLERANCE 1 SISTER(S) . 1DAUGHTER(S) - HEALTHY. SOCIAL HISTORY GENERAL: TOBACCO USE ARE YOU A:NONSMOKER LATEX QUESTIONNAIRE LATEX ALLERGY : HAVE YOU EVER DEVELOPED ANY TYPE OF REACTION AFTER HANDLING LATEX PRODUCTS SUCH RUBBER GLOVES, CONDOMS, DIAPHRAGMS, BALLOONS, SOCKS, OR UNDERWEAR?YES ITCHING LATEX ALLERGY : HAVE YOU EVER DEVELOPED ANY TYPE OF REACTION DURING OR AFTER DENTAL APPOINTMENT, VAGINAL/RECTAL EXAMINATION, SURGICAL PROCEDURE, OR ANY OTHER EXPOSURE?NO - PLEASE INDICATE :OTHER (DOCUMENT IN NOTES) SANITARY PADS DATE ASKED : 07/10/2019 LATEX RISK : HAVE YOU EVER HAD ANY DIFFICULTY BREATHING OR HIVES AFTER EATING OR HANDLING ANY FRUITS, OR VEGETABLES; SUCH KIWI, BANANAS, STONE FRUITS, OR CHESTNUTSYES - PLEASE INDICATE : BANANAS VOMITING LATEX RISK : DO YOU HAVE A PREVIOUS PERSONAL HISTORY OF MORE THAN NINE SURGERIES, SPINA BIFIDA, OR REPEATED CATHERIZATIONS? NO LATEX RISK : ARE YOU FREQUENTLY EXPOSED TO LATEX PRODUCTS IN YOUR OCCUPATION?NO LUNG CANCER SCREENING SMOKING STATUS:NON SMOKER BMI CARE GOAL FOLLOW-UP BELOW NORMAL BMI FOLLOW-UPDIETARY EDUCATION FOR WEIGHT GAIN ALCOHOL SCREENING DID YOU HAVE A DRINK CONTAINING ALCOHOL IN THE PAST YEAR?NO POINTS0 INTERPRETATIONNEGATIVE RECREATIONAL DRUG USE DRUG USE?NO CAFFEINE CAFFEINE USE?YES TEA ABOUT 2 CUPS DAILY SEXUAL HX HAD SEX IN THE LAST 12 MONTHS (VAGINAL, ORAL, OR ANAL)?NO HAVE YOU EVER HAD AN STD?NO HOLINESS NO TENRIISM BELIEFS THAT WOULD IMPACT HEALTH CARE. LANGUAGE NEPALI. EDUCATION LEVEL OF EDUCATION:FINISHED COLLEGE LEARNING BARRIERS / SPECIAL NEEDS CHANGE FROM LAST VISIT?NO BARRIERS TO LEARNING?YES COMMENTS SHORT TERM MEMORY LOSS HEARING IMPAIRED?NO VISION IMPAIRED?YES COGNITIVELY IMPAIRED?NO :CORRECTIVE LENSES READINESS TO LEARN?YES LEARNING PREFERENCES?NO LEARNING CAPABILITIES PRESENT?YES EMOTIONAL BARRIERS?NO SPECIAL DEVICES?NO HUMAN GEOGRAPHY FACULTY MEMBER NEEDED?NO DOMESTIC VIOLENCE NONE. OCCUPATION: RETIRED. DIET: REGULAR. EXERCISE: NONE. MARITAL STATUS: . OTHERS AT HOME: SPOUSE. TODAY'S VISITNOTES 05/18/2019 PATIENT DESCRIBES PAIN :HAVE IT ALL THE TIME, STABBING TINGLING TO LEFT LEG. FROM 0-10, WHAT LEVEL IS YOUR PAIN TODAY?8 PAIN CLINIC PFS, CLERGY, PUBLIC HEALTH REFERRALS PFS REFERRAL NEEDED?NO CLERGY REFERRAL NEEDED?NO PUBLIC HEALTH REFERRAL NEEDED?NO HAS THE PATIENT BEEN EDUCATED REGARDING HIS/HER PLAN OF CARE?YES HAS THE PATIENT BEEN EDUCATED REGARDING PAIN, THE RISK FOR PAIN, THE IMPORTANCE OF EFFECTIVE PAIN MANAGEMENT, AND THE PAIN ASSESSMENT PROCESS?YES HOUSING: OWNS HOME. ADVANCE DIRECTIVE ADVANCE DIRECTIVE DISCUSSED WITH PATIENT:YES PT. STATES SHE HAS HCP, LIVING WILL, POA AND MOLST FORM. HCP [facility] -[phone] HOSPITALIZATION/MAJOR DIAGNOSTIC PROCEDURE KIDNEY STONES 06/15/14 SURGERIES CHILDBIRTH CHILDHOOD-NOT SURE FOR WHAT REVIEW OF SYSTEMS CONSTITUTIONAL: ANY RECENT FEVER NO . CHILLS NO . WEIGHT CHANGE OF UNKNOWN REASONS NO . GASTROENTEROLOGY: NEW UNEXPLAINABLE CHANGES IN BOWEL CONTROL NO . CONSTIPATION NO . GENITOURINARY: ANY NEW CHANGE IN BLADDER CONTROL? NO . NEUROLOGY: NEW ONSET DIZZINESS OR NEUROLOGICAL CHANGES NOT MENTIONED NO . NEW NUMBNESS OR PAIN PATTERNS NOT MENTIONED AND PERTINENT TO TODAY'S VISIT NO . CARDIOLOGY: NEW CHEST PRESSURE NO . NEW CHEST PAIN NO . RESPIRATORY: UNEXPLAINABLE COUGH NO . NEW SHORTNESS OF BREATH NO . VITAL SIGNS WT 111 LBS, HT 4'11", BMI 22.42 INDEX, BP 132/60 MM HG, HR 72 /MIN, RR 16 /MIN, TEMP 96.8 F, OXYGEN SAT % 98, SAFE IN ENV? (Y/N) Y, REVIEWED BY: STEVE. EXAMINATION GENERAL EXAMINATION: GENERALAWAKE,ALERT ,PLEASANT . PSYCHAFFECT NORMAL . LUNGS:LUNG HERNANDEZ ARE CLEAR TO AUSCULTATION BILATERALLY. GOOD MOVEMENT OF AIR . HEART:S1, S2 IN A REGULAR RATE AND RHYTHM. NO SIGNIFICANT MURMURS, RUBS OR GALLOPS NOTED . ASSESSMENTS INTERVERTEBRAL DISC DISORDERS WITH RADICULOPATHY, LUMBOSACRAL REGION - M51.17 (PRIMARY) TREATMENT INTERVERTEBRAL DISC DISORDERS WITH RADICULOPATHY, LUMBOSACRAL REGION NOTES: ADVISED TO RESTART GABAPENTIN 100 MG CAPSULE MORNING AND NIGHT X10 DAYS THEN INCREASE TO 2 CAPSULES MORNING AND NIGHT. THIS IS BEING USED FOR COMPLAINTS OF LOW BACK PAIN WITH LEFT LEG PAIN SYMPTOMS. FOLLOW-UP AT PAIN CLINIC IS SCHEDULED IN 3 MONTHS. PATIENT IS ENCOURAGED TO CALL US IF SHE'S HAVING ANY PROBLEMS WITH GABAPENTIN SO THAT WE CAN MAKE ADJUSTMENTS. PROCEDURE CODES FA211 ESTABILISHED PATIENT [facility] CHARGE DISPOSITION & COMMUNICATION FOLLOW UP 3 MONTHS (REASON: MEDICATION MANAGEMENT/LOW BACK PAIN) ELECTRONICALLY SIGNED BY MYLA LAY ON 12/20/2019 AT 08:43 AM EST DISCLAIMER : THIS IS A VISIT SUMMARY EXTRACTED FROM THE [employer] CHART. IT IS NOT A COPY OF THE [employer] PROGRESS NOTE. EVA
== END ==
LOC: M PAIN 09:15
PROVIDERS: ATTEND Nurse Practitioner Family
DX: M51.17 Intervertebral disc disorders with radiculopathy, lumbosacral region (principal); G89.29 Other chronic pain; E03.9 Hypothyroidism, unspecified; G25.0 Essential tremor; E78.5 Hyperlipidemia, unspecified; R73.01 Impaired fasting glucose; Z88.2 Allergy status to sulfonamides; Z91.018 Allergy to other foods; Z91.040 Latex allergy status; Z79.82 Long term (current) use of aspirin; Z79.899 Other long term (current) drug therapy

== ENCOUNTER 2019-12-21 12:33 | Observation (INO) | payer MEDICARE, OTHER ==
[~2019-12-21] VITALS: Ht 142.2 cm; Wt 50.5 kg
[~2019-12-21 12:33] MED LIST changes: -ASPI-161 PO; -COMB0.2S OU; -MEMA1TAB3 PO; -METO1TAB87 PO
[2019-12-21] MEDS ORDERED: MEMA1TAB3 PO (12:47)
[2019-12-21] MEDS ORDERED: METO1TAB87 PO (12:47)
[2019-12-21 14:02] LABS: BASO % 0.5 % (0.0-1.0); EOS # 0.1 10^3/uL (0.0-0.5); EOS % 1.5 % (0.0-3.0); HEMOGLOBIN 12.8 g/dl (12.0-15.5); LYMPH # 1.4 10^3/uL (1.5-5.0); LYMPH % 18.4 % (24.0-44.0); MEAN CORPUSCULAR HEMOGLOBIN 30.8 pg (27.0-33.0); MEAN CORPUSCULAR HGB CONC 32.8 g/dl (32.0-36.5); MEAN CORPUSCULAR VOLUME 93.8 fl (80.0-96.0); MONO # 0.4 10^3/uL (0.0-0.8); MONO % 4.8 % (0.0-5.0); NEUTROPHILS # 5.5 10^3/uL (1.5-8.5); NEUTROPHILS % 74.4 % (36.0-66.0); PLATELET COUNT, AUTOMATED 254 10^3/uL (150-450); RED BLOOD COUNT 4.16 10^6/uL (4.00-5.40); WHITE BLOOD COUNT 7.5 10^3/uL (4.0-10.0)
[2019-12-21 14:34] LABS: ALBUMIN 3.4 GM/DL (3.2-5.2); ALT/SGPT 21 U/L (12-78); BILIRUBIN,DIRECT 0.1 MG/DL (0.0-0.2); BILIRUBIN,TOTAL 0.4 MG/DL (0.2-1.0); BLOOD UREA NITROGEN 17 MG/DL (7-18); CARBON DIOXIDE LEVEL 30 MEQ/L (21-32); CHLORIDE LEVEL 111 MEQ/L (98-107); CREATININE FOR GFR 0.59 MG/DL (0.55-1.30); GLOMERULAR FILTRATION RATE > 60.0 (>39); GLUCOSE, FASTING 102 MG/DL (70-100); LIPASE 93 U/L (73-393); POTASSIUM SERUM 4.4 MEQ/L (3.5-5.1); SODIUM LEVEL 145 MEQ/L (136-145); TOTAL PROTEIN 6.4 GM/DL (6.4-8.2)
[2019-12-21] MEDS ORDERED: ISOVUE-370 76% 100ML VIAL As Ordered ONE (14:39)
--- NOTE | 2019-12-21 15:14 | REP ---
INDICATION: RLQ pain. COMPARISON: Comparison CT study November 13, 2018.. TECHNIQUE: Helical scanning was acquired and 4 mm axial images are re-formatted. Coronal and sagittal MPR images were generated and reviewed. The contrast enhancement dose is 100 mL of intravenous Isovue 370. FINDINGS: Preliminary digital event planning manager radiograph demonstrates an unremarkable bowel gas pattern. The lung bases are centrally clear on axial CT images. There is minimal pleuroparenchymal scarring bilaterally. No pleural effusion is seen. The liver and the spleen are normal in size homogeneous in texture. Gallbladder and the pancreas are unremarkable. Normal adrenal glands are seen bilaterally. There is no evidence of retroperitoneal mass or adenopathy. There are cortical cysts in the lower pole of each kidney. The largest of these is a on the right measuring 1.3 cm in diameter. The prior study showed intrarenal calculus in the lower pole of each kidney and neither of these is visible today. There is mild fullness the intrarenal collecting system and ureter on the right today. There is also some thickening and enhancement of the nieves of the renal pelvis and ureter. Mural enhancement in the ureter is most pronounced in the distal ureteral segment just above the ureterovesical junction. No stone is appreciated in the ureter. There is a small focal nodular area of enhancement in the right posterior bladder wall well under a cm in size. The mural enhancement of the right ureter and renal pelvis raise question of pyelonephritis. No and renal mass is seen. The uterus is surgically absent. Small and large intestinal bowel loops are unremarkable. A normal appendix is seen. No abdominal wall defect is observed. IMPRESSION: 1. Mild fullness of the intrarenal collecting system and ureter on the right without visible stone. Contrast enhancement in the wall of the ureter and to a lesser extent the renal pelvis, consistent with pyelitis or pyelonephritis. 2. Bilateral small renal cortical cysts. 3. Status post hysterectomy. 4. Normal appendix. <Electronically signed by Dwight Cerna > 12/21/19 [id number]
[2019-12-21] MEDS ORDERED: cefTRIAXone SOD 1 GM in D5W MINI-BAG PLUS 50 ML IV ONE (15:30)
[2019-12-21] MEDS ORDERED: ASPI-161 PO (15:36)
[2019-12-21] MEDS ORDERED: COMB0.2S OU (15:36)
[2019-12-21] MEDS: NS 1,000 ML IV SCH ×2 (15:44→22:16)
[2019-12-21] MEDS ORDERED: ACETAMINOPHEN TAB 650MG DOSE (2X325MG) PO PRN (16:15)
[2019-12-21] MEDS ORDERED: IBUPROFEN 200MG TAB PO PRN (16:15)
--- NOTE | 2019-12-21 16:25 | HPEPDOC ---
General Date of Admission 12/21/19 Date of Service: Dec 21, 2019 Chief Complaint The patient is a 79-year-old female admitted with a reason for visit of Abdominal Pain. Source: Patient Exam Limitations: No limitations Timing/Duration: 24 hours Severity: Mild History of Present Illness Patient 79 years old female with past medical history of osteoporosis, chronic back pain, hyperlipidemia, psychosis, nephrolithiasis presenting to the hospital with generalized weakness and lower back pain with radiation to the right lower abdominal quadrant. Patient stated that she has been having increased low back pain with radiation to right lower abdominal quadrant for past 2 days. Patient denied any dysuria, flank pain. Also patient denied any fever or chills. In ER patient was found to have leukocytosis of 7.5, hemoglobin 12.8, UA showed pyuria. CT Mild fullness of the intrarenal collecting system and ureter on the right without visible stone. Contrast enhancement in the wall of the ureter and to a lesser extent the renal pelvis, consistent with pyelitis or pyelonephritis. Home Medications Scheduled Aspirin (Aspirin EC) 81 Mg Tablet.dr, 81 MG PO QPM, (Reported) Brimonidine Tartrate/Timolol (Combigan 0.2%-0.5% Eye Drops) 5 Ml Drops, 1 DROP OU BID, (Reported) Calcium Carbonate (Calcium) 600 Mg Tablet, 600 MG PO QPM, (Reported) Gabapentin (Gabapentin) 100 Mg Capsule, 100 MG PO TID, (Reported) Levothyroxine Sodium (Synthroid) 50 Mcg Tab, 50 MCG PO DAILY, (Reported) Memantine HCl (Memantine HCl) 5 Mg Tablet, 5 MG PO BID, (Reported) Metoprolol Tartrate (Metoprolol Tartrate) 25 Mg Tablet, 25 MG PO BID, (Reported) Multivitamins (Thera M Plus Tablet) 1 Tab Tab, 1 TAB PO QPM, (Reported) Primidone (Primidone) 50 Mg Tab, 150 MG PO BID, (Reported) Simvastatin (Simvastatin) 20 Mg Tab, 20 MG PO QHS, (Reported) Scheduled PRN Ibuprofen (Ibuprofen) 200 Mg Tab, 200 MG PO Q6H PRN for PAIN, (Reported) Allergies Coded Allergies: Sulfa (Sulfonamide Antibiotics) (Verified Allergy, Unknown, 09/26/18) banana (Verified Allergy, Unknown, 09/26/18) latex (Verified Allergy, Unknown, 09/26/18) Past Medical History Medical History OSTEOPOROSIS - 11/24 DEXA, FOLLOWS WITH ENDO/FISH HYPOTHYROIDISM ESSENTIAL TREMOR HYPERLIPIDEMIA HYPNAGOGIC & HYPNOPOMIC 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 1DAUGHTER(S) - HEALTHY. Social History * Smoker: Denies Alcohol: Denies Drugs: denies A-FIB/CHADSVASC A-FIB History Current/History of A-Fib/PAF?: No Current PO Anticoag Therapy: No Review of Systems Constitutional: Denies: Chills, Fever Eyes: Denies: Pain ENT: Denies: Head Aches Skin: Denies: Rash Pulmonary: Denies: Dyspnea Cardiovascular: Denies: Chest Pain Gastrointestinal: Denies: Nausea Genitourinary: Denies: Dysuria, Frequency Hematologic: Denies: Bruising Endocrine: Denies: Polydipsia Musculoskeletal: Reports: Back Pain Neurological: Denies: Weakness Psych: Reports: Mood Normal Physical Examination General Exam: Positive: Alert Eye Exam: Positive: PERRLA ENT Exam: Positive: Atraumatic Neck Exam: Positive: Supple; Negative: JVD Chest Exam: Positive: Clear to auscultation Heart Exam: Positive: Rate Normal Telemetry: Positive: No significant arrhythmia Abdomen Exam: Positive: Normal bowel sounds, Tenderness (mild right lower abdominal tenderness) Extremity Exam: Negative: Clubbing Skin Exam: Positive: Nl turgor and temperature Neuro Exam: Positive: Cranial Nerves 3-12 NL Psych Exam: Positive: Mental status NL Vital Signs Vital Signs Date Time Temp Pulse Resp B/P (MAP) Pulse Ox O2 Delivery O2 Flow Rate FiO2 12/21/19 12:52 97.5 80 21 149/78 (101) 100 Room Air Laboratory Data Labs 24H Laboratory Tests 2 12/21/19 13:52: Immature Granulocyte % (Auto) 0.4, Neutrophils (%) (Auto) 74.4H, Lymphocytes (%) (Auto) 18.4L, Monocytes (%) (Auto) 4.8, Eosinophils (%) (Auto) 1.5, Basophils (%) (Auto) 0.5, Neutrophils # (Auto) 5.5, Lymphocytes # (Auto) 1.4L, Monocytes # (Auto) 0.4, Eosinophils # (Auto) 0.1, Basophils # (Auto) 0.0, Nucleated Red Blood Cells % (auto) 0.0, Anion Gap 4L, Glomerular Filtration Rate > 60.0, Calcium Level 9.0, Total Bilirubin 0.4, Direct Bilirubin 0.1, Aspartate Amino Transf (AST/SGOT) 23, Alanine Aminotransferase (ALT/SGPT) 21, Alkaline Phos phatase 99, Total Protein 6.4, Albumin 3.4, Albumin/Globulin Ratio 1.1L, Lipase 93 12/21/19 14:37: Urine Color YELLOW, Urine Appearance HAZY, Urine pH 6.0, Urine Specific [place] 1.023, Urine Protein NEGATIVE, Urine Glucose (UA) NEGATIVE, Urine Ketones TRACEH, Urine Blood 2+H, Urine Nitrite NEGATIVE, Urine Bilirubin NEGATIVE, Urine Urobilinogen 0.2, Urine Leukocyte Esterase 3+H, Urine WBC (Auto) 67H, Urine RBC (Auto) 65H, Urine Hyaline Casts (Auto) 0, Urine Bacteria (Auto) 1+H, Urine Squamous Epithelial Cells 3, Urine Mucus (Auto) SMALL, Urine Sperm (Auto) CBC/BMP Laboratory Tests 12/21/19 13:52 Microbiology Microbiology 12/21/19 Urine Culture, Received Pending Assessment/Plan Patient 79 years old female with past medical history of osteoporosis, chronic back pain, hyperlipidemia, psychosis, nephrolithiasis presenting to the hospital with generalized weakness and lower back pain with radiation to the right lower abdominal quadrant. Patient stated that she has been having increased low back pain with radiation to right lower abdominal quadrant for past 2 days. Patient denied any dysuria, flank pain. Also patient denied any fever or chills. In ER patient was found to have leukocytosis of 7.5, hemoglobin 12.8, UA showed pyuria. CT Mild fullness of the intrarenal collecting system and ureter on the right without visible stone. Contrast enhancement in the wall of the ureter and to a lesser extent the renal pelvis, consistent with pyelitis or pyelonephritis. Problems (1) Physical deconditioning Status: Chronic Problem Text: PT/OT evaluation Patient has chronic back pain and stated that she use cane all the time. (2) Abdominal pain Status: Chronic Problem Text: Patient complains of the right lower abdominal pain. Most likely it's radiation of the pain from lower back. Patient doesn't have any fever, chills, no leukocytosis, she doesn't have dysuria. I will not start antibiotics. Continue to monitor (3) Hypothyroidism Status: Chronic Problem Text: Continue levothyroxine Plan / VTE VTE Prophylaxis Ordered?: Yes ROLO STEPHENS DO Dec 21, 2019 16:25
[2019-12-21] MEDS ORDERED: MULTIVITAMINS/MINERALS THERAP 1 TAB PO SCH (18:00)
[2019-12-21] MEDS ORDERED: ASPIRIN 81 MG ENTERIC TAB PO SCH (18:00)
[2019-12-21 18:21] VITALS: BP 138/78
[2019-12-21] MEDS: GABAPENTIN 100 MG CAP PO SCH (20:30)
[2019-12-21] MEDS: PRIMIDONE 50 MG TAB PO SCH (20:30)
[2019-12-21] MEDS: MEMANTINE 5MG TABLET (NAMENDA) PO SCH (20:30)
[2019-12-21] MEDS: METOPROLOL TART 25 MG TABLET PO SCH (20:31)
[2019-12-21] MEDS ORDERED: SIMVASTATIN 20 MG TAB PO SCH (21:00)
[2019-12-21] MEDS ORDERED: RAMELTEON 8 MG TAB (ROZEREM) PO SCH (21:00)
[2019-12-21 22:00] VITALS: BP 134/78
[2019-12-21] MEDS: HEPARIN SOD (PORCINE) 5000UNITS/ML 1ML VIAL/SYRINGE SC SCH (22:16)
[2019-12-22] MEDS: NS 1,000 ML IV SCH ×2 (05:06→09:01)
[2019-12-22 06:00] VITALS: BP 117/63
[2019-12-22] MEDS ORDERED: LEVOTHYROXINE 50MCG TABLET (0.05MG) PO SCH (06:00)
[2019-12-22 07:26] LABS: HEMATOCRIT 37.3 % (36.0-47.0); HEMOGLOBIN 12.2 g/dl (12.0-15.5); MEAN CORPUSCULAR HGB CONC 32.7 g/dl (32.0-36.5); MEAN CORPUSCULAR VOLUME 94.9 fl (80.0-96.0); PLATELET COUNT, AUTOMATED 212 10^3/uL (150-450); RED BLOOD COUNT 3.93 10^6/uL (4.00-5.40); WHITE BLOOD COUNT 4.6 10^3/uL (4.0-10.0)
[2019-12-22 07:37] LABS: BLOOD UREA NITROGEN 10 MG/DL (7-18); CALCIUM LEVEL 7.1 MG/DL (8.8-10.2); CARBON DIOXIDE LEVEL 23 MEQ/L (21-32); CHLORIDE LEVEL 113 MEQ/L (98-107); GLOMERULAR FILTRATION RATE > 60.0 (>39); GLUCOSE, FASTING 73 MG/DL (70-100); MAGNESIUM LEVEL 1.9 MG/DL (1.8-2.4); POTASSIUM SERUM 3.7 MEQ/L (3.5-5.1); SODIUM LEVEL 144 MEQ/L (136-145)
[2019-12-22] MEDS ORDERED: POTASSIUM CHLORIDE 10 MEQ SR TABLET PO ONE (08:45)
[2019-12-22] MEDS: PRIMIDONE 50 MG TAB PO SCH (08:54)
[2019-12-22] MEDS: GABAPENTIN 100 MG CAP PO SCH (08:55)
[2019-12-22] MEDS: MEMANTINE 5MG TABLET (NAMENDA) PO SCH (08:55)
[2019-12-22] MEDS: HEPARIN SOD (PORCINE) 5000UNITS/ML 1ML VIAL/SYRINGE SC SCH (08:55)
[2019-12-22 08:56] VITALS: BP 117/62
[2019-12-22] MEDS: METOPROLOL TART 25 MG TABLET PO SCH (08:56)
[2019-12-22] MEDS ORDERED: BRIMONIDINE 0.1% OPHTH SOLN 5 ML OU SCH (09:00)
[2019-12-22] MEDS ORDERED: COMBIGAN OU SCH (09:00)
[2019-12-22] MEDS ORDERED: TIMOLOL MALEATE 0.5% OPHTH SOLN 5 ML OU SCH (09:00)
--- NOTE | 2019-12-22 13:10 | DS.PDOC ---
Discharge Summary General Date of Admission Dec 21, 2019 at 12:34 Date of Discharge 12/22/19 Discharge Summary PROCEDURES PERFORMED DURING STAY: [None]. ADMITTING DIAGNOSES: Physical deconditioning Abdominal pain Hypothyroidism DISCHARGE DIAGNOSES: Physical deconditioning Abdominal pain Hypothyroidism COMPLICATIONS/CHIEF COMPLAINT: Physical Deconditioning. HISTORY OF PRESENT ILLNESS:Patient 79 years old female with past medical history of osteoporosis, chronic back pain, hyperlipidemia, psychosis, nephrolithiasis presenting to the hospital with generalized weakness and lower back pain with radiation to the right lower abdominal quadrant. Patient stated that she has been having increased low back pain with radiation to right lower abdominal quadrant for past 2 days. Patient denied any dysuria, flank pain. Also patient denied any fever or chills. In ER patient was found to have leukocytosis of 7.5, hemoglobin 12.8, UA showed pyuria. CT Mild fullness of the intrarenal collecting system and ureter on the right without visible stone. Contrast enhancement in the wall of the ureter and to a lesser extent the renal pelvis, consistent with pyelitis or pyelonephritis. HOSPITAL COURSE: During hospital stay following issue addressed (1) Physical deconditioning PT/OT evaluation Patient has chronic back pain and stated that she use cane all the time. (2) Abdominal pain Patient complains of the right lower abdominal pain. Most likely it's radiation of the pain from lower back. Patient doesn't have any fever, chills, no leukocytosis, she doesn't have dysuria. I will not start antibiotics. Continue to monitor (3) Hypothyroidism Continue levothyroxine DISCHARGE MEDICATIONS: Please see below. ALLERGIES: Please see below. PHYSICAL EXAMINATION ON DISCHARGE: VITAL SIGNS: Please see below. Physical Examination General Exam: Positive: Alert Eye Exam: Positive: PERRLA ENT Exam: Positive: Atraumatic Neck Exam: Positive: Supple; Negative: JVD Chest Exam: Positive: Clear to auscultation Heart Exam: Positive: Rate Normal Telemetry: Positive: No significant arrhythmia Abdomen Exam: Positive: Normal bowel sounds Extremity Exam: Negative: Clubbing Skin Exam: Positive: Nl turgor and temperature Neuro Exam: Positive: Cranial Nerves 3-12 NL Psych Exam: Positive: Mental status NL LABORATORY DATA: Please see below. IMAGING: [facility] NAME: REMY CHATTERJEE DATE OF : 1940 AGE: 79 SEX: F REPORT #: [id number] ROOM: M ED TECHNOLOGIST: SHERI DOCTOR: VICENTE CENTENO MD Ordered for Date&Time: 12/21/19 0170 cc: [~ rep ct ivnm] Service Date&Time: This report is in Signed status. If this report is in a DRAFT status it has not yet been reviewed by the radiologist for accuracy. Thank you for having your radiology procedures performed at [facility] RADIOLOGY REPORT Date&Time printed: [~ rep prt dt last] [~ rep prt tm last] Page [address] of [address] [address] RADIOLOGY REPORT This report is in Signed status. If this report is in a DRAFT status it has not yet been reviewed by the radiologist for accuracy. Thank you for having your radiology procedures performed at [facility] RADIOLOGY REPORT Date&Time printed: [~ rep prt dt last] [~ rep prt tm last] Page 1 of 1 INDICATION: RLQ pain. COMPARISON: Comparison CT study November 13, 2018.. TECHNIQUE: Helical scanning was acquired and 4 mm axial images are re-formatted. Coronal and sagittal MPR images were generated and reviewed. The contrast enhancement dose is 100 mL of intravenous Isovue 370. FINDINGS: Preliminary digital commissary worker radiograph demonstrates an unremarkable bowel gas pattern. The lung bases are centrally clear on axial CT images. There is minimal pleuroparenchymal scarring bilaterally. No pleural effusion is seen. The liver and the spleen are normal in size homogeneous in texture. Gallbladder and the pancreas are unremarkable. Normal adrenal glands are seen bilaterally. There is no evidence of retroperitoneal mass or adenopathy. There are cortical cysts in the lower pole of each kidney. The largest of these is a on the right measuring 1.3 cm in diameter. The prior study showed intrarenal calculus in the lower pole of each kidney and neither of these is visible today. There is mild fullness the intrarenal collecting system and ureter on the right today. There is also some thickening and enhancement of the nieves of the renal pelvis and ureter. Mural enhancement in the ureter is most pronounced in the distal ureteral segment just above the ureterovesical junction. No stone is appreciated in the ureter. There is a small focal nodular area of enhancement in the right posterior bladder wall well under a cm in size. The mural enhancement of the right ureter and renal pelvis raise question of pyelonephritis. No and renal mass is seen. The uterus is surgically absent. Small and large intestinal bowel loops are unremarkable. A normal appendix is seen. No abdominal wall defect is observed. IMPRESSION: 1. Mild fullness of the intrarenal collecting system and ureter on the right without visible stone. Contrast enhancement in the wall of the ureter and to a lesser extent the renal pelvis, consistent with pyelitis or pyelonephritis. 2. Bilateral small renal cortical cysts. 3. Status post hysterectomy. 4. Normal appendix. <Electronically signed by Dwight Cerna > 12/21/19 1510 DD: Catalino Cerna MD 12/21/19 150 DT: YUMIKO 12/21/191509 DS: STACEY 12/21/19 15012/21/19 150 [~ rep ct labl] PROGNOSIS: Fair ACTIVITY: [As tolerated]. DIET: Cardiac DISPOSITION: 01 Home, Self-Care. ITEMS TO FOLLOWUP ON ON OUTPATIENT: Follow-up with PCP DISCHARGE CONDITION: [Stable]. TIME SPENT ON DISCHARGE: Greater than 15 minutes. Vital Signs/I&Os Vital Signs Date Time Temp Pulse Resp B/P (MAP) Pulse Ox O2 Delivery O2 Flow Rate FiO2 12/22/19 08:56 62 117/62 12/22/19 06:00 98.6 18 96 Room Air I&O- Last 24 Hours up to 6 AM 12/22/19 06:00 Intake Total 300 ml Output Total 500 ml Balance -200 ml Laboratory Data Labs 24H Laboratory Tests 2 12/21/19 13:52: Immature Granulocyte % (Auto) 0.4, Neutrophils (%) (Auto) 74.4H, Lymphocytes (%) (Auto) 18.4L, Monocytes (%) (Auto) 4.8, Eosinophils (%) (Auto) 1.5, Basophils (%) (Auto) 0.5, Neutrophils # (Auto) 5.5, Lymphocytes # (Auto) 1.4L, Monocytes # (Auto) 0.4, Eosinophils # (Auto) 0.1, Basophils # (Auto) 0.0, Nucleated Red Blood Cells % (auto) 0.0, Anion Gap 4L, Glomerular Filtration Rate > 60.0, Calcium Level 9.0, Total Bilirubin 0.4, Direct Bilirubin 0.1, Aspartate Amino Transf (AST/SGOT) 23, Alanine Aminotransferase (ALT/SGPT) 21, Alkaline Phosphatase 99, Total Protein 6.4, Albumin 3.4, Albumin/Globulin Ratio 1.1L, Lipase 93 12/21/19 14:37: Urine Color YELLOW, Urine Appearance HAZY, Urine pH 6.0, Urine Specific [place] 1.023, Urine Protein NEGATIVE, Urine Glucose (UA) NEGATIVE, Urine Ketones TRACEH, Urine Blood 2+H, Urine Nitrite NEGATIVE, Urine Bilirubin NEGATIVE, Urine Urobilinogen 0.2, Urine Leukocyte Esterase 3+H, Urine WBC (Auto) 67H, Urine RBC (Auto) 65H, Urine Hyaline Casts (Auto) 0, Urine Bacteria (Auto) 1+H, Urine Squ amous Epithelial Cells 3, Urine Mucus (Auto) SMALL, Urine Sperm (Auto) 12/21/19 15:59: Coronavirus (COVID-19)(PCR) NEGATIVE 12/22/19 06:35: Nucleated Red Blood Cells % (auto) 0.0, Anion Gap 8, Glomerular Filtration Rate > 60.0, Calcium Level 7.1#L, Magnesium Level 1.9 CBC/BMP Laboratory Tests 12/21/19 13:52 12/22/19 06:35 Microbiology Microbiology 12/21/19 Urine Culture - Final, Complete Discharge Medications Scheduled Aspirin (Aspirin EC) 81 Mg Tablet.dr, 81 MG PO QPM, (Reported) Brimonidine Tartrate/Timolol (Combigan 0.2%-0.5% Eye Drops) 5 Ml Drops, 1 DROP OU BID, (Reported) Calcium Carbonate (Calcium) 600 Mg Tablet, 600 MG PO QPM, (Reported) Gabapentin (Gabapentin) 100 Mg Capsule, 100 MG PO TID, (Reported) Levothyroxine Sodium (Synthroid) 50 Mcg Tab, 50 MCG PO DAILY, (Reported) Memantine HCl (Memantine HCl) 5 Mg Tablet, 5 MG PO BID, (Reported) Metoprolol Tartrate (Metoprolol Tartrate) 25 Mg Tablet, 25 MG PO BID, (Reported) Multivitamins (Thera M Plus Tablet) 1 Tab Tab, 1 TAB PO QPM, (Reported) Primidone (Primidone) 50 Mg Tab, 150 MG PO BID, (Reported) Simvastatin (Simvastatin) 20 Mg Tab, 20 MG PO QHS, (Reported) Scheduled PRN Ibuprofen (Ibuprofen) 200 Mg Tab, 200 MG PO Q6H PRN for PAIN, (Reported) Allergies Coded Allergies: Sulfa (Sulfonamide Antibiotics) (Verified Allergy, Unknown, 09/26/18) banana (Verified Allergy, Unknown, 09/26/18) latex (Verified Allergy, Unknown, 09/26/18) ROLO STEPHENS DO Dec 22, 2019 13:10
== END 2019-12-22 12:46 | disposition home or self-care (01) ==
LOC: M ED 12:33 → EDBD 12:33 → M ED INP 12:34 → M MSPAV 18:22
PROVIDERS: ADMIT Internal Medicine; ATTEND Internal Medicine
DX: R54 Age-related physical debility (principal); R10.31 Right lower quadrant pain; M81.0 Age-related osteoporosis without current pathological fracture; E03.9 Hypothyroidism, unspecified; E78.49 Other hyperlipidemia; F23 Brief psychotic disorder; N20.0 Calculus of kidney; Z79.82 Long term (current) use of aspirin; Z79.899 Other long term (current) drug therapy; Z88.2 Allergy status to sulfonamides; Z91.040 Latex allergy status; Z91.018 Allergy to other foods; F32.9 Major depressive disorder, single episode, unspecified
CPT/HCPCS: 36415; 74177; 80048; 80076; 81001; 83690; 83735; 85025; 85027; 87086; 93041; 96360; 96361; 96372; 97161; 99285; G0378; J1644; Q9967; U0002

== ENCOUNTER → 2019-12-28 | Outpatient (REF) | payer MEDICARE, OTHER ==
[~2019-12-28] MED LIST changes: +ASPI-161 PO; +COMB0.2S OU; +MEMA1TAB3 PO; +METO1TAB87 PO
[2019-12-28 13:36] LABS: APPEARANCE, URINE HAZY (CLEAR); BACTERIA, URINE AUTO 1+ (NEGATIVE); BILIRUBIN, URINE AUTO NEGATIVE (NEGATIVE); BLOOD, URINE BLOOD 1+ (NEGATIVE); CALCIUM OXALATE CRYSTALS SMALL; COLOR, URINE YELLOW (YELLOW); GLUCOSE, URINE (UA) AUTO NEGATIVE (NEGATIVE); KETONE, URINE AUTO NEGATIVE (NEGATIVE); LEUKOCYTE ESTERASE, URINE AUTO 3+ (NEGATIVE); MUCUS, URINE SMALL (NEGATIVE); NITRITE, URINE AUTO NEGATIVE (NEGATIVE); PROTEIN, URINE AUTO NEGATIVE (NEGATIVE); RBC, URINE AUTO 5 /HPF (0-3); SPECIFIC GRAVITY URINE AUTO 1.021 (1.002-1.035); SQUAMOUS EPITHELIAL CELL UR AU 2 /HPF (0-6); UROBILINOGEN, URINE AUTO 0.2 mg/dL (0.0-2.0); WBC, URINE AUTO 32 /HPF (0-3)
== END ==
LOC: M SFHCADAM 11:24
PROVIDERS: ATTEND Physician Assistant Medical
DX: R10.84 Generalized abdominal pain (principal)

== ENCOUNTER → 2020-03-03 | Outpatient (REF) | payer MEDICARE, OTHER ==
[~2020-03-03] MED LIST changes: -ALEN70TA74 PO; +ALEN70TA82 PO
[2020-03-03 13:14] LABS: ALBUMIN 3.6 GM/DL (3.2-5.2); ALT/SGPT 29 U/L (12-78); BILIRUBIN,TOTAL 0.1 MG/DL (0.2-1.0); BLOOD UREA NITROGEN 14 MG/DL (7-18); CALCIUM LEVEL 9.3 MG/DL (8.8-10.2); CARBON DIOXIDE LEVEL 33 MEQ/L (21-32); CHLORIDE LEVEL 107 MEQ/L (98-107); CHOLESTEROL LEVEL 198 MG/DL (<200); CREATININE FOR GFR 0.64 MG/DL (0.55-1.30); GLOMERULAR FILTRATION RATE > 60.0 (>39); GLUCOSE, FASTING 100 MG/DL (70-100); HDL CHOLESTEROL 60 MG/DL (>40); LDL CHOLESTEROL 108 MG/DL (<100); NON-HDL-C 138 MG/DL; POTASSIUM SERUM 4.8 MEQ/L (3.5-5.1); SODIUM LEVEL 142 MEQ/L (136-145); TOTAL PROTEIN 6.6 GM/DL (6.4-8.2); TRIGLYCERIDES LEVEL 150 MG/DL (<150)
[2020-03-03 13:24] LABS: HEMOGLOBIN A1c 5.1 %
== END ==
LOC: M SFHCADAM 09:38
PROVIDERS: ATTEND Physician Assistant Medical
DX: E03.9 Hypothyroidism, unspecified (principal); R73.01 Impaired fasting glucose; E78.2 Mixed hyperlipidemia

== ENCOUNTER → 2020-03-07 | Outpatient (REF) | payer MEDICARE, OTHER ==
[2020-03-07 13:39] LABS: CALCIUM LEVEL 9.3 MG/DL (8.8-10.2)
[2020-03-07 13:52] LABS: TOTAL 25(OH) VITAMIN D 45.8 NG/ML (30.0-100.0)
== END ==
LOC: M LABDRWAD 12:25
PROVIDERS: ATTEND Nurse Practitioner Family
DX: M81.0 Age-related osteoporosis without current pathological fracture (principal); E55.9 Vitamin D deficiency, unspecified

== ENCOUNTER → 2020-03-20 | Outpatient (CLI) | payer MEDICARE, OTHER ==
[~2020-03-20] MED LIST changes: +ASPI-281 PO; -ASPI81CH17 PO; -QUET1TAB7 PO; +QUET25TA3 PO
--- NOTE | 2020-03-26 10:34 | ECWPNPC ---
PATIENT NAME: REMY CHATTERJEE : 1940 GENDER: FEMALE VISIT DATE: 03/20/2020 DISCHARGE DATE: 03/20/20 1057 VISIT LOCKED DATE TIME: PHYSICIAN: MICHELE ROSE PHYSICIAN PAGER NO: ACTIVE RESOURCE: MICHELE ROSE REASON FOR APPOINTMENT 1. MEDICATION MANAGEMENT/LOW BACK PAIN - IS HCP HISTORY OF PRESENT ILLNESS GENERAL: HERE FOR FOLLOW-UP AND MEDICATION MANAGEMENT FOR CHRONIC LOW BACK PAIN. ACCOMPANIED IN EXAM ROOM WITH HER WHO IS HEALTHCARE PROXY. PATIENT WITH HISTORY OF DEMENTIA. OVERALL DOING FAIRLY WELL WITH GABAPENTIN 100 MG TWICE A DAY. STILL COMPLAINING OF SIGNIFICANT LOW BACK PAIN. TODAY WE DISCUSSED INCREASING GABAPENTIN TO 2 100 MG CAPSULES TWICE A DAY. PATIENT DENIES DISRUPTION IN SLEEP DUE TO PAIN. REPORTING NORMAL BOWEL AND BLADDER FUNCTION. REPORTING WEIGHT IS STABLE.-. FALL RISK SCREENING: SCREENING :NO FALLS REPORTED IN THE LAST YEAR PAIN SCREENING: PATIENT HAS A COMPLAINT OF ACUTE OR CHRONIC PAIN :YES LOCATION OF PAIN:LOW BACK INTENSITY OF PAIN (SCALE OF 1 TO 10):8 WHAT DOES YOUR PAIN FEEL LIKE:CONTINOUS DURATION:CONTINOUS, CONSTANT, ALL DAY PAIN IS INCREASED BY:ACTIVITIES PAIN IS DECREASED BY:USE OF PAIN MEDICATIONS NURSING NOTE: -. PAIN CENTER INTAKE QUESTIONS: DO YOU HAVE A HISTORY OF MRSA? :NO DO YOU TAKE A BLOOD THINNERS? :NO DO YOU HAVE ANY BLEEDING DISORDERS? :NO ANY NEW NUMBNESS OR WEAKNESS IN YOUR LEGS OR ARMS? :NO ANY PACEMAKER,DEFIBRILLATOR, OR DORSAL COLUMN STIMULATOR? :NO DO YOU HAVE ANY RASHES OR OPEN SORES? :NO ARE YOU ALLERGIC TO IV DYE? :NO ARE YOU DIABETIC? :NO ANY NEW PROBLEMS WITH YOUR MEDICATIONS? :NO HAVE YOU RECEIVED A VACCINE IN THE PAST 30 DAYS? :NO DO YOU PLAN TO RECEIVE A VACCINE IN THE NEXT 21 DAYS? :NO DO YOU NEED ANY PRESCRIPTION? :NO DO YOU TAKE ANY IMMUNOSUPPRESSIVE MEDICATIONS? :NO IS THERE A CHANCE YOU COULD BE ? :NO ARE YOU BREAST FEEDING? :NO CURRENT MEDICATIONS TAKING LEVOTHYROXINE SODIUM 50 MCG TABLET 1 TABLET ORALLY ONCE A DAY TAKING PRIMIDONE 50 MG TABLET 3 TAB(S) ORALLY THREE TIMES DAILY TAKING TYLENOL EXTRA STRENGTH 500 MG TABLET 1 TABLET NEEDED ORALLY EVERY 6 HRS TAKING MULTIVITAMIN _ TABLET 1 TAB(S) ORALLY ONCE A DAY TAKING CALCIUM _ TABLET 600 MGS 1 TABLET ORALLY ONCE A DAY TAKING VITAMIN D _ TABLET 2000 UNITS 1 TABLET ORALLY ONCE A DAY TAKING ASPIRIN 81 MG TABLET CHEWABLE 1 TABLET ORALLY ONCE A DAY TAKING PROLIA 60 MG/ML SOLUTION SUBCUTANEOUS TWICE A YEAR August TAKING IBUPROFEN 200 MG TABLET 1 TABLET WITH FOOD OR MILK NEEDED ORALLY THREE TIMES A DAY TAKING COMBIGAN 0.2-0.5 % SOLUTION 1 DROP INTO AFFECTED EYE OPHTHALMIC TWICE A DAY TAKING SIMVASTATIN 40 MG TABLET 1 TABLET IN THE EVENING ORALLY BEFORE BEDTIME TAKING MEMANTINE HCL 5 MG TABLET 1 TABLET ORALLY ONCE A DAY, NOTES: NOT SURE OF DOSE TAKING GABAPENTIN 100 MG CAPSULE 1 CAPSULE ORALLY TWICE DAILY BEDTIME AND ONE A NIGHT TAKING METOPROLOL TARTRATE 25 MG TABLET 1 TABLET WITH FOOD ORALLY TWICE A DAY TAKING REMERON 15 MG TABLET 1 TABLET AT BEDTIME ORALLY ONCE A DAY NOT-TAKING KETOTIFEN FUMARATE 0.025 % SOLUTION 1 DROP INTO AFFECTED EYE OPHTHALMIC TWICE A DAY NOT-TAKING NITROFURANTOIN MONOHYD MACRO 100 MG CAPSULE 1 CAP ORALLY TWICE DAILY NOT-TAKING GABAPENTIN 100 MG CAPSULE 2 CAP ORALLY BID NOT-TAKING OXYCODONE-ACETAMINOPHEN 5-325 MG TABLET (SCHEDULE II DRUG) TAKE ONE TABLET BY MOUTH EVERY DAY NEEDED MAXIMUM DAILY DOSE 1 ORAL NOT-TAKING PYRIDIUM 100 MG TABLET 2 TABLETS AFTER MEALS ORALLY THREE TIMES A DAY MEDICATION LIST REVIEWED AND RECONCILED WITH THE PATIENT PAST MEDICAL HISTORY OSTEOPOROSIS - 11/24 DEXA, FOLLOWS WITH ENDO/FISH HYPOTHYROIDISM ESSENTIAL TREMOR HYPERLIPIDEMIA. 08/2019 ASVCD 18.3%, INCREASE STATIN. HYPNAGOGIC & HYPNOPOMIC 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 - HEMATOLOGY CHRONIC BACK PAIN CATARACTS ALLERGIES SULFA (FOR ALLERGY USE ONLY): UNKNOWN - ALLERGY LATEX (FOR ALLERGY USE ONLY): ITCH - ALLERGY BANANAS: NAUSEA/VOMITING - SIDE EFFECTS SOCIAL HISTORY GENERAL: TOBACCO USE ARE YOU A:NONSMOKER LATEX QUESTIONNAIRE LATEX ALLERGY : HAVE YOU EVER DEVELOPED ANY TYPE OF REACTION AFTER HANDLING LATEX PRODUCTS SUCH RUBBER GLOVES, CONDOMS, DIAPHRAGMS, BALLOONS, SOCKS, OR UNDERWEAR?YES ITCHING - PLEASE INDICATE :OTHER (DOCUMENT IN NOTES) SANITARY PADS LATEX ALLERGY : HAVE YOU EVER DEVELOPED ANY TYPE OF REACTION DURING OR AFTER DENTAL APPOINTMENT, VAGINAL/RECTAL EXAMINATION, SURGICAL PROCEDURE, OR ANY OTHER EXPOSURE?NO LATEX RISK : HAVE YOU EVER HAD ANY DIFFICULTY BREATHING OR HIVES AFTER EATING OR HANDLING ANY FRUITS, OR VEGETABLES; SUCH KIWI, BANANAS, STONE FRUITS, OR CHESTNUTSYES - PLEASE INDICATE : BANANAS VOMITING LATEX RISK : DO YOU HAVE A PREVIOUS PERSONAL HISTORY OF MORE THAN NINE SURGERIES, SPINA BIFIDA, OR REPEATED CATHERIZATIONS? NO LATEX RISK : ARE YOU FREQUENTLY EXPOSED TO LATEX PRODUCTS IN YOUR OCCUPATION?NO DATE ASKED : 03/20/2020 ALCOHOL USE: NO. LUNG CANCER SCREENING SMOKING STATUS:NON SMOKER BMI CARE GOAL FOLLOW-UP BELOW NORMAL BMI FOLLOW-UPDIETARY EDUCATION FOR WEIGHT GAIN ALCOHOL SCREENING DID YOU HAVE A DRINK CONTAINING ALCOHOL IN THE PAST YEAR?NO POINTS0 INTERPRETATIONNEGATIVE RECREATIONAL DRUG USE DRUG USE?NO CAFFEINE CAFFEINE USE?YES TEA ABOUT 2 CUPS DAILY SEXUAL HX HAD SEX IN THE LAST 12 MONTHS (VAGINAL, ORAL, OR ANAL)?NO HAVE YOU EVER HAD AN STD?NO RESTORATIONIST NO LUTHERAN BELIEFS THAT WOULD IMPACT HEALTH CARE. LANGUAGE LITHUANIAN. EDUCATION LEVEL OF EDUCATION:FINISHED COLLEGE LEARNING BARRIERS / SPECIAL NEEDS CHANGE FROM LAST VISIT?YES BARRIERS TO LEARNING?YES COMMENTS SHORT TERM MEMORY LOSS HEARING IMPAIRED?NO VISION IMPAIRED?YES :CORRECTIVE LENSES COGNITIVELY IMPAIRED?NO READINESS TO LEARN?YES LEARNING PREFERENCES?NO LEARNING CAPABILITIES PRESENT?YES EMOTIONAL BARRIERS?NO SPECIAL DEVICES?YES :CANE FINDING FASTENER NEEDED?NO DOMESTIC VIOLENCE NONE. OCCUPATION: RETIRED. DIET: REGULAR. EXERCISE: NONE. MARITAL STATUS: . OTHERS AT HOME: SPOUSE. TODAY'S VISITNOTES 05/18/2019 PATIENT DESCRIBES PAIN :HAVE IT ALL THE TIME, STABBING TINGLING TO LEFT LEG. FROM 0-10, WHAT LEVEL IS YOUR PAIN TODAY?8 - PFS REFERRAL NEEDED?NO CLERGY REFERRAL NEEDED?NO PUBLIC HEALTH REFERRAL NEEDED?NO HAS THE PATIENT BEEN EDUCATED REGARDING HIS/HER PLAN OF CARE?YES HAS THE PATIENT BEEN EDUCATED REGARDING PAIN, THE RISK FOR PAIN, THE IMPORTANCE OF EFFECTIVE PAIN MANAGEMENT, AND THE PAIN ASSESSMENT PROCESS?YES HOUSING: OWNS HOME. ADVANCE DIRECTIVE ADVANCE DIRECTIVE DISCUSSED WITH PATIENT:YES PT. STATES SHE HAS HCP, LIVING WILL, POA AND MOLST FORM. HCP TAB CRUM -[phone] REVIEW OF SYSTEMS CONSTITUTIONAL: ANY RECENT FEVER NO . CHILLS NO . WEIGHT CHANGE OF UNKNOWN REASONS NO . GASTROENTEROLOGY: NEW UNEXPLAINABLE CHANGES IN BOWEL CONTROL NO . CONSTIPATION NO . GENITOURINARY: ANY NEW CHANGE IN BLADDER CONTROL? NO . NEUROLOGY: NEW ONSET DIZZINESS OR NEUROLOGICAL CHANGES NOT MENTIONED NO . NEW NUMBNESS OR PAIN PATTERNS NOT MENTIONED AND PERTINENT TO TODAY'S VISIT NO . CARDIOLOGY: NEW CHEST PRESSURE NO . NEW CHEST PAIN NO . RESPIRATORY: UNEXPLAINABLE COUGH NO . NEW SHORTNESS OF BREATH NO . VITAL SIGNS WT 112 LBS, HT 4'11", BMI 22.62 INDEX, BP 134/61 MM HG, HR 73 /MIN, RR 16 /MIN, TEMP 95 F, OXYGEN SAT % 98%, SAFE IN ENV? (Y/N) YEST.VIDAL PIRES. EXAMINATION GENERAL EXAMINATION: GENERALAWAKE,ALERT ,PLEASANT . PSYCHAFFECT NORMAL . LUNGS:LUNG HERNANDEZ ARE CLEAR TO AUSCULTATION BILATERALLY. GOOD MOVEMENT OF AIR . HEART:S1, S2 IN A REGULAR RATE AND RHYTHM. NO SIGNIFICANT MURMURS, RUBS OR GALLOPS NOTED . ASSESSMENTS INTERVERTEBRAL DISC DISORDERS WITH RADICULOPATHY, LUMBOSACRAL REGION - M51.17 (PRIMARY) TREATMENT OTHERS REFILL GABAPENTIN CAPSULE, 100 MG, 2 CAP, ORALLY, BID, 30 DAYS, 120 CAPSULE, REFILLS 2 NOTES: ADVISED TO CONTINUE WITH GABAPENTIN 100MG 2 CAPSULES AM AND PM.I WILL BE PRESCRIBING AND ADJUSTING THIS MEDICATION TO HELP WITH LOW BACK PAIN AND LEFT LEG PAIN.BRING GABAPENTIN TO ALL APPOINTMENTS. PROCEDURE CODES FA211 ESTABILISHED [facility] DISPOSITION & COMMUNICATION FOLLOW UP 10 WKS (REASON: GABAPENTIN MANAGEMENT) ELECTRONICALLY SIGNED BY MYLA LAY ON 03/25/2020 AT 09:09 AM EST DISCLAIMER : THIS IS A VISIT SUMMARY EXTRACTED FROM THE [employer] CHART. IT IS NOT A COPY OF THE [employer] PROGRESS NOTE. [facility]A
== END ==
LOC: M PAIN 09:45
PROVIDERS: ATTEND Nurse Practitioner Family
DX: M51.17 Intervertebral disc disorders with radiculopathy, lumbosacral region (principal); G89.29 Other chronic pain; E03.9 Hypothyroidism, unspecified; G25.0 Essential tremor; R73.01 Impaired fasting glucose; Z88.2 Allergy status to sulfonamides; Z91.018 Allergy to other foods; Z91.040 Latex allergy status; Z79.82 Long term (current) use of aspirin; Z79.899 Other long term (current) drug therapy

== ENCOUNTER → 2020-04-14 | Outpatient (REF) | payer MEDICARE, OTHER | LOC: M SFHCADAM 11:22 | DX: Z53.9 Procedure and treatment not carried out, unspecified reason (principal) ==

== ENCOUNTER → 2020-05-13 | Outpatient (REF) | payer MEDICARE, OTHER ==
[2020-05-13 17:46] LABS: FREE T4 0.85 NG/DL (0.76-1.46); THYROID STIMULATING HORMONE 2.1 uIU/ML (0.358-3.740)
== END ==
LOC: M LABDRWAD 16:20
PROVIDERS: ATTEND Internal Medicine Endocrinology, Diabetes & Metabolism
DX: E03.9 Hypothyroidism, unspecified (principal)

== ENCOUNTER → 2020-05-26 | Outpatient (CLI) | payer MEDICARE, OTHER ==
--- NOTE | 2020-06-10 05:28 | ECWPNPC ---
PATIENT NAME: REMY CHATTERJEE : 1940 GENDER: FEMALE VISIT DATE: 05/26/2020 DISCHARGE DATE: 05/26/20 1146 VISIT LOCKED DATE TIME: PHYSICIAN: MICHELE ROSE PHYSICIAN PAGER NO: ACTIVE RESOURCE: MICHELE ROSE REASON FOR APPOINTMENT 1. GABAPENTIN MANAGEMENT HISTORY OF PRESENT ILLNESS GENERAL: HERE FOR FOLLOW-UP OF CHRONIC LOW BACK PAIN. ACCOMPANIED IN THE EXAM ROOM WITH HER . USING GABAPENTIN 100 MG CAPSULE 2 CAPSULES MORNING AND NIGHT. FEELS INCREASE HAS HELPED HER. DENIES ADVERSE SIDE EFFECTS OF MEDICATION. -. FALL RISK SCREENING: SCREENING : NO FALLS REPORTED IN THE LAST YEAR. PAIN SCREENING: PATIENT HAS A COMPLAINT OF ACUTE OR CHRONIC PAIN :YES LOCATION OF PAIN:LOW BACK INTENSITY OF PAIN (SCALE OF 1 TO 10):5 WHAT DOES YOUR PAIN FEEL LIKE:ACHING, SHOOTING DURATION:INTERMITTENT PAIN IS INCREASED BY:ACTIVITIES, PROLONGED STANDING PAIN IS DECREASED BY:SITTING, OTHERS LAYING DOWN NURSING NOTE: -. PAIN CENTER INTAKE QUESTIONS: DO YOU HAVE A HISTORY OF MRSA? :NO DO YOU TAKE A BLOOD THINNERS? :NO DO YOU HAVE ANY BLEEDING DISORDERS? :NO ANY NEW NUMBNESS OR WEAKNESS IN YOUR LEGS OR ARMS? :NO ANY PACEMAKER,DEFIBRILLATOR, OR DORSAL COLUMN STIMULATOR? :NO DO YOU HAVE ANY RASHES OR OPEN SORES? :NO ARE YOU ALLERGIC TO IV DYE? :NO ARE YOU DIABETIC? :NO ANY NEW PROBLEMS WITH YOUR MEDICATIONS? :NO HAVE YOU RECEIVED A VACCINE IN THE PAST 30 DAYS? :YES 2ND VALENCIA DE LA O THE DATE DO YOU PLAN TO RECEIVE A VACCINE IN THE NEXT 21 DAYS? :NO DO YOU NEED ANY PRESCRIPTION? :YES GABAPENTIN DO YOU TAKE ANY IMMUNOSUPPRESSIVE MEDICATIONS? :NO IS THERE A CHANCE YOU COULD BE ? :NO ARE YOU BREAST FEEDING? :NO CURRENT MEDICATIONS TAKING LEVOTHYROXINE SODIUM 50 MCG TABLET 1 TABLET ORALLY ONCE A DAY TAKING PRIMIDONE 50 MG TABLET 3 TAB(S) ORALLY THREE TIMES DAILY TAKING TYLENOL EXTRA STRENGTH 500 MG TABLET 1 TABLET NEEDED ORALLY EVERY 6 HRS TAKING MULTIVITAMIN _ TABLET 1 TAB(S) ORALLY ONCE A DAY TAKING CALCIUM _ TABLET 600 MGS 1 TABLET ORALLY ONCE A DAY TAKING VITAMIN D _ TABLET 2000 UNITS 1 TABLET ORALLY ONCE A DAY TAKING ASPIRIN 81 MG TABLET CHEWABLE 1 TABLET ORALLY ONCE A DAY TAKING PROLIA 60 MG/ML SOLUTION SUBCUTANEOUS TWICE A YEAR August TAKING IBUPROFEN 200 MG TABLET 1 TABLET WITH FOOD OR MILK NEEDED ORALLY THREE TIMES A DAY TAKING COMBIGAN 0.2-0.5 % SOLUTION 1 DROP INTO AFFECTED EYE OPHTHALMIC TWICE A DAY TAKING MEMANTINE HCL 5 MG TABLET 1 TABLET ORALLY ONCE A DAY, NOTES: NOT SURE OF DOSE TAKING METOPROLOL TARTRATE 25 MG TABLET 1 TABLET WITH FOOD ORALLY TWICE A DAY TAKING GABAPENTIN 100 MG CAPSULE 2 CAPSULE ORALLY TWICE DAILY TAKING SIMVASTATIN 40 MG TABLET 1 TABLET IN THE EVENING ORALLY BEFORE BEDTIME NOT-TAKING REMERON 15 MG TABLET 1 TABLET AT BEDTIME ORALLY ONCE A DAY NOT-TAKING METOPROLOL TARTRATE 25 MG TABLET TAKE ONE TABLET BY MOUTH TWICE A DAY WITH FOOD MEDICATION LIST REVIEWED AND RECONCILED WITH THE PATIENT PAST MEDICAL HISTORY OSTEOPOROSIS - 11/24 DEXA, FOLLOWS WITH ENDO/FISH HYPOTHYROIDISM ESSENTIAL TREMOR HYPERLIPIDEMIA. 08/2019 ASVCD 18.3%, INCREASE STATIN. HYPNAGOGIC & HYPNOPOMIC 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 - HEMATOLOGY CHRONIC BACK PAIN CATARACTS ALLERGIES SULFA (FOR ALLERGY USE ONLY): UNKNOWN - ALLERGY LATEX (FOR ALLERGY USE ONLY): ITCH - ALLERGY BANANAS: NAUSEA/VOMITING - SIDE EFFECTS SOCIAL HISTORY GENERAL: TOBACCO USE ARE YOU A:NONSMOKER LATEX QUESTIONNAIRE LATEX ALLERGY : HAVE YOU EVER DEVELOPED ANY TYPE OF REACTION AFTER HANDLING LATEX PRODUCTS SUCH RUBBER GLOVES, CONDOMS, DIAPHRAGMS, BALLOONS, SOCKS, OR UNDERWEAR?YES ITCHING - PLEASE INDICATE :OTHER (DOCUMENT IN NOTES) SANITARY PADS LATEX ALLERGY : HAVE YOU EVER DEVELOPED ANY TYPE OF REACTION DURING OR AFTER DENTAL APPOINTMENT, VAGINAL/RECTAL EXAMINATION, SURGICAL PROCEDURE, OR ANY OTHER EXPOSURE?NO LATEX RISK : HAVE YOU EVER HAD ANY DIFFICULTY BREATHING OR HIVES AFTER EATING OR HANDLING ANY FRUITS, OR VEGETABLES; SUCH KIWI, BANANAS, STONE FRUITS, OR CHESTNUTSYES - PLEASE INDICATE : BANANAS VOMITING LATEX RISK : DO YOU HAVE A PREVIOUS PERSONAL HISTORY OF MORE THAN NINE SURGERIES, SPINA BIFIDA, OR REPEATED CATHERIZATIONS? NO LATEX RISK : ARE YOU FREQUENTLY EXPOSED TO LATEX PRODUCTS IN YOUR OCCUPATION?NO DATE ASKED : 05/26/2020 ALCOHOL USE: NO. LUNG CANCER SCREENING SMOKING STATUS:NON SMOKER BMI CARE GOAL FOLLOW-UP BELOW NORMAL BMI FOLLOW-UPDIETARY EDUCATION FOR WEIGHT GAIN ALCOHOL SCREENING DID YOU HAVE A DRINK CONTAINING ALCOHOL IN THE PAST YEAR?NO POINTS0 INTERPRETATIONNEGATIVE RECREATIONAL DRUG USE DRUG USE?NO CAFFEINE CAFFEINE USE?YES TEA ABOUT 2 CUPS DAILY SEXUAL HX HAD SEX IN THE LAST 12 MONTHS (VAGINAL, ORAL, OR ANAL)?NO HAVE YOU EVER HAD AN STD?NO CONFUCIANIST NO JUDAISM BELIEFS THAT WOULD IMPACT HEALTH CARE. LANGUAGE MAURITANIAN. 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 OCCUPATION: RETIRED. DIET: REGULAR. EXERCISE: NONE. MARITAL STATUS: . OTHERS AT HOME: SPOUSE. TODAY'S VISITNOTES 05/18/2019 PATIENT DESCRIBES PAIN :HAVE IT ALL THE TIME, STABBING TINGLING TO LEFT LEG. FROM 0-10, WHAT LEVEL IS YOUR PAIN TODAY?8 - PFS REFERRAL NEEDED?NO CLERGY REFERRAL NEEDED?NO PUBLIC HEALTH REFERRAL NEEDED?NO HAS THE PATIENT BEEN EDUCATED REGARDING HIS/HER PLAN OF CARE?YES HAS THE PATIENT BEEN EDUCATED REGARDING PAIN, THE RISK FOR PAIN, THE IMPORTANCE OF EFFECTIVE PAIN MANAGEMENT, AND THE PAIN ASSESSMENT PROCESS?YES HOUSING: OWNS HOME. ADVANCE DIRECTIVE ADVANCE DIRECTIVE DISCUSSED WITH PATIENT:YES PT. STATES SHE HAS HCP, LIVING WILL, POA AND MOLST FORM. HCP [facility] -[phone] REVIEW OF SYSTEMS CONSTITUTIONAL: ANY RECENT FEVER NO . CHILLS NO . WEIGHT CHANGE OF UNKNOWN REASONS NO . GASTROENTEROLOGY: NEW UNEXPLAINABLE CHANGES IN BOWEL CONTROL NO . CONSTIPATION NO . GENITOURINARY: ANY NEW CHANGE IN BLADDER CONTROL? NO . NEUROLOGY: NEW ONSET DIZZINESS OR NEUROLOGICAL CHANGES NOT MENTIONED NO . NEW NUMBNESS OR PAIN PATTERNS NOT MENTIONED AND PERTINENT TO TODAY'S VISIT NO . CARDIOLOGY: NEW CHEST PRESSURE NO . PATIENT DENIES NO . RESPIRATORY: UNEXPLAINABLE COUGH NO . NEW SHORTNESS OF BREATH NO . VITAL SIGNS WT 108.0 LBS, HT 4'11", BMI 21.81 INDEX, BP 129/62 MM HG, HR 99 /MIN, RR 18 /MIN, TEMP 96.8 F, OXYGEN SAT % 97%, SAFE IN ENV? (Y/N) YES, NA INITIALS AW 1112T.VIDAL PIRES. EXAMINATION GENERAL EXAMINATION: GENERALAWAKE,ALERT ,PLEASANT . PSYCHAFFECT NORMAL . LUNGS:LUNG HERNANDEZ ARE CLEAR TO AUSCULTATION BILATERALLY. GOOD MOVEMENT OF AIR . HEART:S1, S2 IN A REGULAR RATE AND RHYTHM. NO SIGNIFICANT MURMURS, RUBS OR GALLOPS NOTED . ASSESSMENTS INTERVERTEBRAL DISC DISORDERS WITH RADICULOPATHY, LUMBOSACRAL REGION - M51.17 (PRIMARY) TREATMENT INTERVERTEBRAL DISC DISORDERS WITH RADICULOPATHY, LUMBOSACRAL REGION REFILL GABAPENTIN CAPSULE, 100 MG, 2 CAPSULE, ORALLY, TWICE DAILY, 30 DAYS, 120, REFILLS 5 NOTES: CONTINUE GABAPENTIN 100 MG CAPSULE 2 CAPSULES TWICE A DAY FOR CHRONIC LOW BACK PAIN. FOLLOW-UP AT PAIN CENTER IN 3 MONTHS. PROCEDURE CODES FA211 ESTABILISHED PATIENT [facility] CHARGE DISPOSITION & COMMUNICATION FOLLOW UP 3 MONTHS (REASON: LOW BACK PAIN/GABAPENTIN) ELECTRONICALLY SIGNED BY MYLA LAY ON 06/09/2020 AT 02:02 PM EDT DISCLAIMER : THIS IS A VISIT SUMMARY EXTRACTED FROM THE [employer] CHART. IT IS NOT A COPY OF THE [employer] PROGRESS NOTE. EVA
== END ==
LOC: M PAIN 11:15
PROVIDERS: ATTEND Nurse Practitioner Family
DX: M51.17 Intervertebral disc disorders with radiculopathy, lumbosacral region (principal); G89.29 Other chronic pain; E03.9 Hypothyroidism, unspecified; G25.0 Essential tremor; R73.01 Impaired fasting glucose; Z88.2 Allergy status to sulfonamides; Z91.018 Allergy to other foods; Z91.040 Latex allergy status; Z79.82 Long term (current) use of aspirin; Z79.899 Other long term (current) drug therapy

== ENCOUNTER → 2020-06-07 | Outpatient (CLI) | payer MEDICARE, OTHER ==
--- NOTE | 2020-06-07 13:56 | REP ---
INDICATION: OTHER CHEST PAIN COMPARISON: 05/20/2017 TECHNIQUE: PA and lateral. FINDINGS: The mediastinum and cardiac silhouette are normal/stable. The lung bone demonstrate chronic COPD/emphysematous type changes without acute consolidation, effusion, or pneumothorax. The skeletal structures are intact and normal. IMPRESSION: No acute cardiopulmonary process. Chronic emphysematous changes. <Electronically signed by Jeison Downey > 06/07/20 [id number]
== END ==
LOC: M RAD 13:00
PROVIDERS: ATTEND Physician Assistant Medical
DX: R07.89 Other chest pain (principal); W01.10XA Fall on same level from slipping, tripping and stumbling with subsequent striking against unspecified object, initial encounter; Y92.9 Unspecified place or not applicable; Y93.9 Activity, unspecified; Y99.9 Unspecified external cause status

== ENCOUNTER → 2020-06-16 | Outpatient (REF) | payer MEDICARE, OTHER ==
[2020-06-16 13:32] LABS: FREE T4 1.07 NG/DL (0.76-1.46); THYROID STIMULATING HORMONE 1.22 uIU/ML (0.358-3.740)
== END ==
LOC: M LABDRWAD 12:18
PROVIDERS: ATTEND Internal Medicine Endocrinology, Diabetes & Metabolism
DX: E03.9 Hypothyroidism, unspecified (principal)

== ENCOUNTER → 2020-08-25 | Outpatient (CLI) | payer MEDICARE, OTHER ==
--- NOTE | 2020-08-27 03:22 | ECWPNPC ---
PATIENT NAME: REMY CHATTERJEE : 1940 GENDER: FEMALE VISIT DATE: 08/25/2020 DISCHARGE DATE: 08/25/20 1211 VISIT LOCKED DATE TIME: PHYSICIAN: MICHELE ROSE PHYSICIAN PAGER NO: ACTIVE RESOURCE: MICHELE ROSE REASON FOR APPOINTMENT 1. LOW BACK PAIN/GABAPENTIN HISTORY OF PRESENT ILLNESS DEPRESSION SCREENING: PHQ-2 (2015 EDITION) LITTLE INTEREST OR PLEASURE IN DOING THINGS?NOT AT ALL FEELING DOWN, DEPRESSED, OR HOPELESS?NOT AT ALL TOTAL SCORE0 GENERAL: HERE FOR ROUTINE FOLLOW-UP OF CHRONIC LOW BACK PAIN. CURRENTLY USING GABAPENTIN 100 MG 2 CAPSULES MORNING AND NIGHT. ACCOMPANIED IN THE EXAM ROOM WITH HER . HISTORY OF DEMENTIA. OVERALL DOING WELL WITH GABAPENTIN. DENIES ADVERSE SIDE EFFECTS. REPORTING GOOD SLEEP. STATES SHE IS ABLE TO TOLERATE SOME ACTIVITIES DURING THE DAY THAT SHE ENJOYS. -. FALL RISK SCREENING: SCREENING A FEW MONTHS AGO FROM TODAY 08/25/2020, NO MAJOR INJURIES. PAIN SCREENING: PATIENT HAS A COMPLAINT OF ACUTE OR CHRONIC PAIN :YES LOCATION OF PAIN:LOW BACK INTENSITY OF PAIN (SCALE OF 1 TO 10):5 WHAT DOES YOUR PAIN FEEL LIKE:CONTINOUS, SHARP DURATION:CONTINOUS, CONSTANT, ALL DAY PAIN IS INCREASED BY:ACTIVITIES PAIN IS DECREASED BY:OTHERS RESTING/ SLEEPING NURSING NOTE: -. PAIN CENTER INTAKE QUESTIONS: DO YOU HAVE A HISTORY OF MRSA? :NO DO YOU TAKE A BLOOD THINNERS? :NO ASPIRIN 81 MG DO YOU HAVE ANY BLEEDING DISORDERS? :NO ANY NEW NUMBNESS OR WEAKNESS IN YOUR LEGS OR ARMS? :YES RIGHT THUMB ALOT OF PAIN ANY PACEMAKER,DEFIBRILLATOR, OR DORSAL COLUMN STIMULATOR? :NO DO YOU HAVE ANY RASHES OR OPEN SORES? :NO ARE YOU ALLERGIC TO IV DYE? :NO ARE YOU DIABETIC? :NO ANY NEW PROBLEMS WITH YOUR MEDICATIONS? :NO HAVE YOU RECEIVED A VACCINE IN THE PAST 30 DAYS? :YES 2ND VALENCIA DE LA O THE DATE DO YOU PLAN TO RECEIVE A VACCINE IN THE NEXT 21 DAYS? :NO DO YOU NEED ANY PRESCRIPTION? :NO DO YOU TAKE ANY IMMUNOSUPPRESSIVE MEDICATIONS? :NO IS THERE A CHANCE YOU COULD BE ? :NO ARE YOU BREAST FEEDING? :NO CURRENT MEDICATIONS TAKING LEVOTHYROXINE SODIUM 50 MCG TABLET 1 TABLET ORALLY ONCE A DAY TAKING PRIMIDONE 50 MG TABLET 3 TAB(S) ORALLY THREE TIMES DAILY TAKING TYLENOL EXTRA STRENGTH 500 MG TABLET 1 TABLET NEEDED ORALLY EVERY 6 HRS TAKING MULTIVITAMIN _ TABLET 1 TAB(S) ORALLY ONCE A DAY TAKING CALCIUM _ TABLET 600 MGS 1 TABLET ORALLY ONCE A DAY TAKING VITAMIN D _ TABLET 2000 UNITS 1 TABLET ORALLY ONCE A DAY TAKING ASPIRIN 81 MG TABLET CHEWABLE 1 TABLET ORALLY ONCE A DAY TAKING PROLIA 60 MG/ML SOLUTION SUBCUTANEOUS TWICE A YEAR August TAKING IBUPROFEN 200 MG TABLET 1 TABLET WITH FOOD OR MILK NEEDED ORALLY THREE TIMES A DAY TAKING COMBIGAN 0.2-0.5 % SOLUTION 1 DROP INTO AFFECTED EYE OPHTHALMIC TWICE A DAY TAKING MEMANTINE HCL 5 MG TABLET 1 TABLET ORALLY ONCE A DAY, NOTES: NOT SURE OF DOSE TAKING METOPROLOL TARTRATE 25 MG TABLET 1 TABLET WITH FOOD ORALLY TWICE A DAY TAKING SIMVASTATIN 40 MG TABLET 1 TABLET IN THE EVENING ORALLY BEFORE BEDTIME TAKING MOTRIN PRN TAKING GABAPENTIN 100 MG CAPSULE 2 CAPSULE ORALLY DAILY NOT-TAKING AZOPT NOT-TAKING METOPROLOL TARTRATE 25 MG TABLET TAKE ONE TABLET BY MOUTH TWICE A DAY WITH FOOD NOT-TAKING REMERON 15 MG TABLET 1 TABLET AT BEDTIME ORALLY ONCE A DAY MEDICATION LIST REVIEWED AND RECONCILED WITH THE PATIENT PAST MEDICAL HISTORY OSTEOPOROSIS - 11/24 DEXA, FOLLOWS WITH ENDO/FISH HYPOTHYROIDISM ESSENTIAL TREMOR HYPERLIPIDEMIA. 08/2019 ASVCD 18.3%, INCREASE STATIN. HYPNAGOGIC & HYPNOPOMIC 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 A FEW MONTHS AGO FROM TODAY 08/25/2020, NO MAJOR INJURIES ALLERGIES SULFA (FOR ALLERGY USE ONLY): UNKNOWN - ALLERGY LATEX (FOR ALLERGY USE ONLY): ITCH - ALLERGY BANANAS: NAUSEA/VOMITING - SIDE EFFECTS SOCIAL HISTORY GENERAL: TOBACCO USE ARE YOU A:NONSMOKER LATEX QUESTIONNAIRE LATEX ALLERGY : HAVE YOU EVER DEVELOPED ANY TYPE OF REACTION AFTER HANDLING LATEX PRODUCTS SUCH RUBBER GLOVES, CONDOMS, DIAPHRAGMS, BALLOONS, SOCKS, OR UNDERWEAR?YES ITCHING - PLEASE INDICATE :OTHER (DOCUMENT IN NOTES) SANITARY PADS LATEX ALLERGY : HAVE YOU EVER DEVELOPED ANY TYPE OF REACTION DURING OR AFTER DENTAL APPOINTMENT, VAGINAL/RECTAL EXAMINATION, SURGICAL PROCEDURE, OR ANY OTHER EXPOSURE?NO LATEX RISK : HAVE YOU EVER HAD ANY DIFFICULTY BREATHING OR HIVES AFTER EATING OR HANDLING ANY FRUITS, OR VEGETABLES; SUCH KIWI, BANANAS, STONE FRUITS, OR CHESTNUTSYES - PLEASE INDICATE : BANANAS VOMITING LATEX RISK : DO YOU HAVE A PREVIOUS PERSONAL HISTORY OF MORE THAN NINE SURGERIES, SPINA BIFIDA, OR REPEATED CATHERIZATIONS? NO LATEX RISK : ARE YOU FREQUENTLY EXPOSED TO LATEX PRODUCTS IN YOUR OCCUPATION?NO DATE ASKED : 08/25/2020 ALCOHOL USE: NO. LUNG CANCER SCREENING SMOKING STATUS:NON SMOKER BMI CARE GOAL FOLLOW-UP BELOW NORMAL BMI FOLLOW-UPDIETARY EDUCATION FOR WEIGHT GAIN ALCOHOL SCREENING DID YOU HAVE A DRINK CONTAINING ALCOHOL IN THE PAST YEAR?NO POINTS0 INTERPRETATIONNEGATIVE RECREATIONAL DRUG USE DRUG USE?NO CAFFEINE CAFFEINE USE?YES TEA ABOUT 2 CUPS DAILY SEXUAL HX HAD SEX IN THE LAST 12 MONTHS (VAGINAL, ORAL, OR ANAL)?NO HAVE YOU EVER HAD AN STD?NO RASTAFARI NO MORMONISM BELIEFS THAT WOULD IMPACT HEALTH CARE. LANGUAGE MOHAWK. 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 OCCUPATION: RETIRED. DIET: REGULAR. EXERCISE: NONE. MARITAL STATUS: . OTHERS AT HOME: SPOUSE. TODAY'S VISITNOTES 05/18/2019 PATIENT DESCRIBES PAIN :HAVE IT ALL THE TIME, STABBING TINGLING TO LEFT LEG. FROM 0-10, WHAT LEVEL IS YOUR PAIN TODAY?8 - PFS REFERRAL NEEDED?NO CLERGY REFERRAL NEEDED?NO PUBLIC HEALTH REFERRAL NEEDED?NO HAS THE PATIENT BEEN EDUCATED REGARDING HIS/HER PLAN OF CARE?YES HAS THE PATIENT BEEN EDUCATED REGARDING PAIN, THE RISK FOR PAIN, THE IMPORTANCE OF EFFECTIVE PAIN MANAGEMENT, AND THE PAIN ASSESSMENT PROCESS?YES HOUSING: OWNS HOME. ADVANCE DIRECTIVE ADVANCE DIRECTIVE DISCUSSED WITH PATIENT:YES PT. STATES SHE HAS HCP, LIVING WILL, POA AND MOLST FORM. HCP [facility] -[phone] REVIEW OF SYSTEMS CONSTITUTIONAL: ANY RECENT FEVER NO . CHILLS NO . WEIGHT CHANGE OF UNKNOWN REASONS NO . GASTROENTEROLOGY: NEW UNEXPLAINABLE CHANGES IN BOWEL CONTROL NO . CONSTIPATION NO . GENITOURINARY: ANY NEW CHANGE IN BLADDER CONTROL? NO . NEUROLOGY: NEW ONSET DIZZINESS OR NEUROLOGICAL CHANGES NOT MENTIONED NO . NEW NUMBNESS OR PAIN PATTERNS NOT MENTIONED AND PERTINENT TO TODAY'S VISIT NO . CARDIOLOGY: NEW CHEST PRESSURE NO . PATIENT DENIES NO . RESPIRATORY: UNEXPLAINABLE COUGH NO . NEW SHORTNESS OF BREATH NO . VITAL SIGNS WT 110.8 LBS, HT 4'11", BMI 22.38 INDEX, BP 119/57 MM HG, HR 95 /MIN, RR 18 /MIN, TEMP 96.8 F, OXYGEN SAT % 97%, SAFE IN ENV? (Y/N) YES, NA INITIALS LA 11:29T.VIDAL PIRES. EXAMINATION GENERAL EXAMINATION: GENERALAWAKE,ALERT ,PLEASANT . PSYCHAFFECT NORMAL . LUNGS:LUNG HERNANDEZ ARE CLEAR TO AUSCULTATION BILATERALLY. GOOD MOVEMENT OF AIR . HEART:S1, S2 IN A REGULAR RATE AND RHYTHM. NO SIGNIFICANT MURMURS, RUBS OR GALLOPS NOTED . ASSESSMENTS INTERVERTEBRAL DISC DISORDERS WITH RADICULOPATHY, LUMBOSACRAL REGION - M51.17 (PRIMARY) TREATMENT INTERVERTEBRAL DISC DISORDERS WITH RADICULOPATHY, LUMBOSACRAL REGION CONTINUE GABAPENTIN CAPSULE, 100 MG, 2 CAPSULE, ORALLY, DAILY, 30 DAYS, 60 CAPSULE, REFILLS 2 NOTES: CONTINUE GABAPENTIN 100 MG 2 CAPSULES MORNING AND NIGHT. CONTINUE HOME WALKING PROGRAM. FOLLOW-UP SCHEDULED AT PAIN CLINIC IN 3 MONTHS. PROCEDURE CODES FA211 ESTABILISHED PATIENT [facility] CHARGE DISPOSITION & COMMUNICATION FOLLOW UP 3 MONTHS (REASON: DOES WELL WITH CURRENT GABAPENTIN/LOW BACK PAIN/DEMENTIA) ELECTRONICALLY SIGNED BY MYLA LAY ON 08/26/2020 AT 07:42 PM EDT DISCLAIMER : THIS IS A VISIT SUMMARY EXTRACTED FROM THE [employer] CHART. IT IS NOT A COPY OF THE [employer] PROGRESS NOTE. EVA
== END ==
LOC: M PAIN 11:15
PROVIDERS: ATTEND Nurse Practitioner Family
DX: M51.17 Intervertebral disc disorders with radiculopathy, lumbosacral region (principal); G89.29 Other chronic pain; E03.9 Hypothyroidism, unspecified; G25.0 Essential tremor; Z88.2 Allergy status to sulfonamides; Z91.018 Allergy to other foods; Z91.040 Latex allergy status; Z79.82 Long term (current) use of aspirin; Z79.899 Other long term (current) drug therapy

== ENCOUNTER → 2020-09-05 | Outpatient (REF) | payer MEDICARE, OTHER | LOC: M LABDRWAD 17:51 | PROVIDERS: ATTEND Internal Medicine Endocrinology, Diabetes & Metabolism | DX: N81.0 Urethrocele (principal) ==

== ENCOUNTER → 2020-11-21 | Outpatient (CLI) | payer MEDICARE, OTHER ==
[~2020-11-21] MED LIST changes: -ASPI-281 PO; +ASPI-310 PO; +QUET1TAB17 PO; -QUET25TA3 PO
--- NOTE | 2020-11-21 10:42 | REPMRS ---
Patient History The patient states she has not had a clinical breast exam in over a year. Family history of breast cancer at age 70 in mother, breast cancer at age 80 in maternal aunt, breast cancer at age 50 or over in paternal aunt, breast cancer at age 50 or over in maternal cousin. Took hormonal contraceptives for 2 years. Tomosynthesis is performed. Volpara breast density is c. Tyrer-zick lifetime risk of breast cancer 8.3%. Patient states no breast complaints today. Patient has signed MRS History Sheet. Digital Woman Screen Mammo: November 21, 2020 - Exam #: [id number] Bilateral CC and MLO view(s) were taken. Technologist: Samara Santacruz Technologist Prior study comparison: November 13, 2019, bilateral digital woman screen mammo performed at [facility]. November 08, 2018, bilateral digital woman screen mammo performed at [facility]. FINDINGS: The breast tissue is heterogeneously dense. This may lower the sensitivity of mammography. There has been no change in the appearance of the mammogram from the prior studies. There is a moderate amount of residual fibroglandular tissue which is fairly symmetric. There is no interval development of dominant mass, areas of architectural distortion, or clustered microcalcification typical of malignancy. Assessment: BI-RADS/ACR category 1 mammogram. Negative Mammogram. Recommendation Routine screening mammogram in 1 year (for women over age 40). This mammogram was interpreted with the aid of an FDA-approved computer-aided dectection system. Electronically Signed By: Jaleel Benites MD 11/21/20 0454
== END ==
LOC: M WHC 09:38
PROVIDERS: ATTEND Physician Assistant Medical
DX: Z12.31 Encounter for screening mammogram for malignant neoplasm of breast (principal); Z80.3 Family history of malignant neoplasm of breast; Z92.0 Personal history of contraception; F32.1 Major depressive disorder, single episode, moderate

== ENCOUNTER → 2020-11-24 | Outpatient (CLI) | payer MEDICARE, OTHER | LOC: M PAIN 10:30 | PROVIDERS: ATTEND Anesthesiology | DX: M25.511 Pain in right shoulder (principal); M54.50 Low back pain, unspecified; E03.9 Hypothyroidism, unspecified; Z88.2 Allergy status to sulfonamides; Z91.018 Allergy to other foods; Z91.040 Latex allergy status; Z79.82 Long term (current) use of aspirin; Z79.899 Other long term (current) drug therapy ==

== ENCOUNTER → 2020-11-27 | Outpatient (REF) | payer MEDICARE, OTHER ==
[2020-11-27 17:44] LABS: BASO % 0.6 % (0.0-1.0); EOS # 0.1 10^3/uL (0.0-0.5); EOS % 0.9 % (0.0-3.0); HEMATOCRIT 41.4 % (36.0-47.0); HEMOGLOBIN 13.6 g/dl (12.0-15.5); LYMPH # 1.9 10^3/uL (1.5-5.0); LYMPH % 26.4 % (24.0-44.0); MEAN CORPUSCULAR HEMOGLOBIN 31.9 pg (27.0-33.0); MEAN CORPUSCULAR HGB CONC 32.9 g/dl (32.0-36.5); MEAN CORPUSCULAR VOLUME 97.2 fl (80.0-96.0); MONO # 0.4 10^3/uL (0.0-0.8); MONO % 5.3 % (2.0-8.0); NEUTROPHILS # 4.7 10^3/uL (1.5-8.5); NEUTROPHILS % 66.7 % (36.0-66.0); PLATELET COUNT, AUTOMATED 313 10^3/uL (150-450); RED BLOOD COUNT 4.26 10^6/uL (4.00-5.40)
[2020-11-27 18:20] LABS: ALBUMIN 3.8 GM/DL (3.2-5.2); ALT/SGPT 21 U/L (12-78); BILIRUBIN,TOTAL 0.2 MG/DL (0.2-1.0); BLOOD UREA NITROGEN 20 MG/DL (7-18); CALCIUM LEVEL 10.2 MG/DL (8.8-10.2); CARBON DIOXIDE LEVEL 31 MEQ/L (21-32); CHLORIDE LEVEL 110 MEQ/L (98-107); CHOLESTEROL LEVEL 200 MG/DL (<200); CHOLESTEROL RISK RATIO 2.666 (<5); CREATININE FOR GFR 0.65 MG/DL (0.55-1.30); FOLATE > 24.0 NG/ML; GLOMERULAR FILTRATION RATE > 60.0 (>39); GLUCOSE, FASTING 107 MG/DL (70-100); HDL CHOLESTEROL 75 MG/DL (>40); LDL CHOLESTEROL 101 MG/DL (<100); NON-HDL-C 125 MG/DL; POTASSIUM SERUM 4.6 MEQ/L (3.5-5.1); SODIUM LEVEL 145 MEQ/L (136-145); THYROID STIMULATING HORMONE 0.714 uIU/ML (0.358-3.740); TOTAL 25(OH) VITAMIN D 71.5 NG/ML (30.0-100.0); TOTAL PROTEIN 6.7 GM/DL (6.4-8.2); TRIGLYCERIDES LEVEL 122 MG/DL (<150); VITAMIN B12 LEVEL 832 PG/ML
[2020-11-27 18:48] LABS: MAU/CREAT RATIO 67.2 MCG/MG (0.0-30.0)
[2020-11-27 19:46] LABS: HEMOGLOBIN A1c 5.2 %
== END ==
LOC: M SFHCADAM 11:25
PROVIDERS: ATTEND Physician Assistant Medical
DX: E78.2 Mixed hyperlipidemia (principal); E03.9 Hypothyroidism, unspecified; R73.01 Impaired fasting glucose; F32.1 Major depressive disorder, single episode, moderate; F03.90 Unspecified dementia, unspecified severity, without behavioral disturbance, psychotic disturbance, mood disturbance, and anxiety; R44.3 Hallucinations, unspecified; Z79.899 Other long term (current) drug therapy; Z23 Encounter for immunization
CPT/HCPCS: 80053; 80061; 82043; 82306; 82607; 82746; 83036; 84443; 85025; 90682; G0008

== ENCOUNTER → 2020-12-09 | Outpatient (CLI) | payer MEDICARE, OTHER ==
--- NOTE | 2020-12-09 14:01 | REP ---
INDICATION: RT SHOULDER PAIN. COMPARISON: None. TECHNIQUE: Coronal oblique T1 and fat suppressed T2. Sagittal oblique fat suppressed T2. Axial yfkuw-ojoxmioy-mozz and T2 FLASH. FINDINGS: There is mild to moderate hypertrophic degenerative change seen involving the acromioclavicular joint. The acromion process is type 2. There is patchy and linear T2 hyper signal seen in the supraspinatus tendon without evidence of musculotendinous retraction or significant muscular atrophy. There is no evidence of coracohumeral or coracoacromial ligamentous thickening. There is no glenohumeral joint effusion. There is fluid in the subcoracoid recess. There is patchy T2 hyper signal seen in the subscapularis and infraspinatus tendons which are intact. The biceps tendon resides within the bicipital groove. Linear hyper signal changes are seen in the superior labrum and particularly anteriorly. The posterior labrum appears irregular. IMPRESSION: 1. There is supraspinatus, infraspinatus, and subscapularis tendinitis/tendinosis. 2. There labral signal changes concerning for a labral tear. This could be confirmed with shoulder MRI arthrography if clinically relevant. 3. Other findings as described above. <Electronically signed by Roddy Leiva > 12/09/20 [id number]
== END ==
LOC: M PLAIMG 10:16
PROVIDERS: ATTEND Anesthesiology
DX: M25.511 Pain in right shoulder (principal)

== ENCOUNTER → 2020-12-26 | Outpatient (CLI) | payer MEDICARE, OTHER ==
--- NOTE | 2020-12-26 10:45 | REP ---
INDICATION: RT SHOULDER PAIN. COMPARISON: None. TECHNIQUE: Internal rotation and Y-view of the right shoulder FINDINGS: Age-related osteopenia is appreciated along with mild cortical irregularity and spurring at the acromioclavicular joint. The glenohumeral joint appears intact and relatively age-appropriate/normal. No evidence for acute fracture or dislocation. No periarticular calcifications or loose bodies identified. IMPRESSION: Essentially age-related changes. <Electronically signed by Jeison Downey > 12/26/20 1815
== END ==
LOC: M SOG 09:55
PROVIDERS: ATTEND Orthopaedic Surgery
DX: M25.511 Pain in right shoulder (principal)

== ENCOUNTER → 2021-02-11 | Outpatient (CLI) | payer MEDICARE, OTHER | LOC: M PAIN 10:30 | PROVIDERS: ATTEND Anesthesiology | DX: M79.18 Myalgia, other site (principal); M79.644 Pain in right finger(s); E03.9 Hypothyroidism, unspecified; Z88.2 Allergy status to sulfonamides; Z88.8 Allergy status to other drugs, medicaments and biological substances; Z91.018 Allergy to other foods; Z91.040 Latex allergy status; Z79.82 Long term (current) use of aspirin; Z79.899 Other long term (current) drug therapy ==

== ENCOUNTER → 2021-03-12 | Outpatient (CLI) | payer MEDICARE, OTHER | LOC: M LABSMTC 11:00 | PROVIDERS: ATTEND Anesthesiology | DX: Z20.822 Contact with and (suspected) exposure to COVID-19 (principal) ==

== ENCOUNTER → 2021-03-17 | Outpatient (CLI) | payer MEDICARE, OTHER ==
[~2021-03-17] MED LIST changes: +BUPIVACAINE HCL 0.25% 10ML VIAL As Ordered ONE; +BUPIVACAINE HCL 0.25% 30ML VIAL As Ordered ONE; +NORCO, ANEXSIA 5/325MG TABLET (HYDROcodone/ACETAMINOPHEN) As Ordered ONE; +TRIAMCINOLONE ACETONIDE SUSP 40 MG/ML VIAL (J3301) As Ordered ONE; +diazePAM 2 MG TAB As Ordered ONE
== END ==
LOC: M PAIN 14:00
PROVIDERS: ATTEND Anesthesiology
DX: M79.18 Myalgia, other site (principal); E03.9 Hypothyroidism, unspecified; Z88.2 Allergy status to sulfonamides; Z88.8 Allergy status to other drugs, medicaments and biological substances; Z91.018 Allergy to other foods; Z91.040 Latex allergy status; Z79.82 Long term (current) use of aspirin; Z79.899 Other long term (current) drug therapy
CPT/HCPCS: 20552; J3301

== ENCOUNTER → 2021-04-06 | Outpatient (CLI) | payer MEDICARE, OTHER ==
[~2021-04-06] MED LIST changes: -BUPIVACAINE HCL 0.25% 10ML VIAL As Ordered ONE; -BUPIVACAINE HCL 0.25% 30ML VIAL As Ordered ONE; -NORCO, ANEXSIA 5/325MG TABLET (HYDROcodone/ACETAMINOPHEN) As Ordered ONE; -TRIAMCINOLONE ACETONIDE SUSP 40 MG/ML VIAL (J3301) As Ordered ONE; -diazePAM 2 MG TAB As Ordered ONE
== END ==
LOC: M PAIN 10:15
PROVIDERS: ATTEND Nurse Practitioner Family
DX: M79.10 Myalgia, unspecified site (principal); M25.511 Pain in right shoulder; G89.29 Other chronic pain; E03.9 Hypothyroidism, unspecified; Z88.2 Allergy status to sulfonamides; Z88.8 Allergy status to other drugs, medicaments and biological substances; Z91.018 Allergy to other foods; Z91.040 Latex allergy status; Z79.82 Long term (current) use of aspirin; Z79.899 Other long term (current) drug therapy

== ENCOUNTER → 2021-06-03 | Outpatient (CLI) | payer MEDICARE, OTHER | LOC: M PAIN 10:45 | PROVIDERS: ATTEND Anesthesiology | DX: M25.511 Pain in right shoulder (principal); G89.29 Other chronic pain; M77.9 Enthesopathy, unspecified; E03.9 Hypothyroidism, unspecified; F03.90 Unspecified dementia, unspecified severity, without behavioral disturbance, psychotic disturbance, mood disturbance, and anxiety; Z88.2 Allergy status to sulfonamides; Z88.8 Allergy status to other drugs, medicaments and biological substances; Z91.018 Allergy to other foods; Z91.040 Latex allergy status; Z79.82 Long term (current) use of aspirin; Z79.899 Other long term (current) drug therapy | CPT/HCPCS: 76000; G0463 ==

== ENCOUNTER → 2021-07-16 | Outpatient (CLI) | payer MEDICARE, OTHER | LOC: M PAIN 15:15 → M TMPAIN 15:15 | PROVIDERS: ATTEND Anesthesiology | DX: M25.511 Pain in right shoulder (principal); G89.29 Other chronic pain; M77.8 Other enthesopathies, not elsewhere classified; E03.9 Hypothyroidism, unspecified; R73.01 Impaired fasting glucose; F03.90 Unspecified dementia, unspecified severity, without behavioral disturbance, psychotic disturbance, mood disturbance, and anxiety; Z88.2 Allergy status to sulfonamides; Z88.4 Allergy status to anesthetic agent; Z91.018 Allergy to other foods; Z91.040 Latex allergy status; Z79.82 Long term (current) use of aspirin; Z79.899 Other long term (current) drug therapy ==

== ENCOUNTER → 2021-09-14 | Outpatient (CLI) | payer MEDICARE, OTHER ==
[2021-09-14 16:38] LABS: CALCIUM LEVEL 9.9 MG/DL (8.8-10.2); THYROID STIMULATING HORMONE 1.75 uIU/ML (0.358-3.740)
[2021-09-14 17:32] LABS: TOTAL 25(OH) VITAMIN D 79.1 NG/ML (30.0-100.0)
== END ==
LOC: M PLALAB 10:04
PROVIDERS: ATTEND Internal Medicine Endocrinology, Diabetes & Metabolism
DX: M81.0 Age-related osteoporosis without current pathological fracture (principal)

== ENCOUNTER → 2021-11-27 | Outpatient (CLI) | payer MEDICARE, OTHER | LOC: M WHC 10:58 | PROVIDERS: ATTEND Physician Assistant Medical | DX: Z12.31 Encounter for screening mammogram for malignant neoplasm of breast (principal); R92.2 Inconclusive mammogram ==

== ENCOUNTER → 2021-12-16 | Outpatient (CLI) | payer MEDICARE, OTHER | LOC: M WHC 13:38 | PROVIDERS: ATTEND Physician Assistant Medical | DX: R92.8 Other abnormal and inconclusive findings on diagnostic imaging of breast (principal) | CPT/HCPCS: 77065; G0279 ==

== ENCOUNTER → 2022-01-07 | Outpatient (CLI) | payer MEDICARE, OTHER ==
[~2022-01-07] MED LIST changes: +LATA0.0015 OU; +PROL60SO SC; +SIMV40TA20 PO; +SUPE600T4 PO; +VITA100093 PO
== END ==
LOC: M LABSMTC 11:28
PROVIDERS: ATTEND Anesthesiology
DX: Z01.812 Encounter for preprocedural laboratory examination (principal); Z11.52 Encounter for screening for COVID-19

== ENCOUNTER → 2022-02-24 | Outpatient (CLI) | payer MEDICARE, OTHER ==
[~2022-02-24] MED LIST changes: +ALEV220T22 PO; +AZOP0.2S OU; +TUMS500C PO
== END ==
LOC: M LABSMTC 10:50
PROVIDERS: ATTEND Anesthesiology
DX: Z01.812 Encounter for preprocedural laboratory examination (principal); Z20.822 Contact with and (suspected) exposure to COVID-19

== ENCOUNTER → 2022-03-09 | Outpatient (CLI) | payer MEDICARE, OTHER | LOC: M PAIN 15:30 | PROVIDERS: ATTEND Anesthesiology | DX: M25.511 Pain in right shoulder (principal); M79.18 Myalgia, other site; E03.9 Hypothyroidism, unspecified; F03.90 Unspecified dementia, unspecified severity, without behavioral disturbance, psychotic disturbance, mood disturbance, and anxiety; Z88.2 Allergy status to sulfonamides; Z88.8 Allergy status to other drugs, medicaments and biological substances; Z91.018 Allergy to other foods; Z91.040 Latex allergy status; Z79.82 Long term (current) use of aspirin; Z79.890 Hormone replacement therapy; Z79.899 Other long term (current) drug therapy ==

== ENCOUNTER → 2022-03-22 | Outpatient (CLI) | payer MEDICARE, OTHER | LOC: M PLALAB 10:23 | PROVIDERS: ATTEND Internal Medicine Endocrinology, Diabetes & Metabolism | DX: M81.0 Age-related osteoporosis without current pathological fracture (principal) ==

== ENCOUNTER → 2022-04-06 | Outpatient (CLI) | payer MEDICARE | LOC: M SOG 08:15 | PROVIDERS: ATTEND Orthopaedic Surgery | DX: M25.511 Pain in right shoulder (principal) ==

== ENCOUNTER → 2022-04-27 | Outpatient (CLI) | payer MEDICARE | LOC: M LABSMTC 11:35 | PROVIDERS: ATTEND Anesthesiology | DX: Z01.818 Encounter for other preprocedural examination (principal); Z11.52 Encounter for screening for COVID-19 ==

== ENCOUNTER → 2022-04-30 | Outpatient (CLI) | payer MEDICARE, OTHER ==
[~2022-04-30] MED LIST changes: +BUPIVACAINE HCL 0.25% 10ML VIAL As Ordered ONE; +BUPIVACAINE HCL 0.25% 30ML VIAL As Ordered ONE; +TRIAMCINOLONE ACETONIDE SUSP 40MG/ML 1ML VIAL As Ordered ONE
== END ==
LOC: M PAIN 13:45
PROVIDERS: ATTEND Anesthesiology
DX: M79.18 Myalgia, other site (principal); G89.29 Other chronic pain; E03.9 Hypothyroidism, unspecified; Z88.2 Allergy status to sulfonamides; Z88.4 Allergy status to anesthetic agent; Z91.018 Allergy to other foods; Z91.040 Latex allergy status; Z79.82 Long term (current) use of aspirin; Z79.890 Hormone replacement therapy; Z79.899 Other long term (current) drug therapy
CPT/HCPCS: 20552; J3301

== ENCOUNTER → 2022-05-27 | Outpatient (CLI) | payer MEDICARE, OTHER ==
[~2022-05-27] MED LIST changes: -BUPIVACAINE HCL 0.25% 10ML VIAL As Ordered ONE; -BUPIVACAINE HCL 0.25% 30ML VIAL As Ordered ONE; -TRIAMCINOLONE ACETONIDE SUSP 40MG/ML 1ML VIAL As Ordered ONE
== END ==
LOC: M PAIN 11:15
PROVIDERS: ATTEND Anesthesiology
DX: M25.511 Pain in right shoulder (principal); G89.29 Other chronic pain; M79.18 Myalgia, other site; E03.9 Hypothyroidism, unspecified; Z88.2 Allergy status to sulfonamides; Z88.4 Allergy status to anesthetic agent; Z91.018 Allergy to other foods; Z91.040 Latex allergy status; Z79.82 Long term (current) use of aspirin; Z79.890 Hormone replacement therapy; Z79.899 Other long term (current) drug therapy

== ENCOUNTER → 2022-06-02 | Outpatient (REF) | payer MEDICARE, OTHER ==
[2022-06-02 15:21] LABS: HEMATOCRIT 44.5 % (36.0-47.0); HEMOGLOBIN 14.3 g/dl (12.0-15.5); MEAN CORPUSCULAR HEMOGLOBIN 32.1 pg (27.0-33.0); MEAN CORPUSCULAR HGB CONC 32.1 g/dl (32.0-36.5); MEAN CORPUSCULAR VOLUME 99.8 fl (80.0-96.0); PLATELET COUNT, AUTOMATED 305 10^3/uL (150-450); RED BLOOD COUNT 4.46 10^6/uL (4.00-5.40); WHITE BLOOD COUNT 8.2 10^3/uL (4.0-10.0)
[2022-06-02 15:51] LABS: FREE T4 0.95 NG/DL (0.89-1.76)
[2022-06-02 15:54] LABS: ALBUMIN 3.8 G/DL (3.2-5.2); ALKALINE PHOSPHATASE 87 U/L (46-116); ALT/SGPT 21 U/L (7.0-40); AST/SGOT 21 U/L (<34); BILIRUBIN,TOTAL 0.2 MG/DL (0.3-1.2); BLOOD UREA NITROGEN 17 MG/DL (9-23); CALCIUM LEVEL 9.6 MG/DL (8.3-10.6); CARBON DIOXIDE LEVEL 31 MMOL/L (20-31); CHLORIDE LEVEL 108 MMOL/L (98-107); CHOLESTEROL LEVEL 191 MG/DL (<200); CHOLESTEROL RISK RATIO 2.69 (<5); CREATININE FOR GFR 0.63 MG/DL (0.55-1.30); GLOMERULAR FILTRATION RATE > 60.0 (>32); GLUCOSE, FASTING 110 MG/DL (74-106); HDL CHOLESTEROL 70.9 MG/DL (>40); LDL CHOLESTEROL 95.1 MG/DL (<100); NON-HDL-C 120.1 MG/DL; POTASSIUM SERUM 3.8 MMOL/L (3.5-5.1); SODIUM LEVEL 146 MMOL/L (136-145); TOTAL PROTEIN 6.4 G/DL (5.7-8.2); TRIGLYCERIDES LEVEL 125 MG/DL (<150)
[2022-06-02 16:53] LABS: HEMOGLOBIN A1c 5.1 % (4.0-6.0)
== END ==
LOC: M SFHCADAM 09:45
PROVIDERS: ATTEND Physician Assistant Medical
DX: D47.2 Monoclonal gammopathy (principal); R73.01 Impaired fasting glucose; E03.9 Hypothyroidism, unspecified; E78.2 Mixed hyperlipidemia; G25.0 Essential tremor; Z12.11 Encounter for screening for malignant neoplasm of colon

== ENCOUNTER → 2022-07-27 | Outpatient (CLI) | payer MEDICARE, OTHER | LOC: M PAIN 11:00 | PROVIDERS: ATTEND Nurse Practitioner Family | DX: M79.10 Myalgia, unspecified site (principal); G89.29 Other chronic pain; E03.9 Hypothyroidism, unspecified; F03.90 Unspecified dementia, unspecified severity, without behavioral disturbance, psychotic disturbance, mood disturbance, and anxiety; Z88.2 Allergy status to sulfonamides; Z88.4 Allergy status to anesthetic agent; Z91.018 Allergy to other foods; Z91.040 Latex allergy status; Z79.82 Long term (current) use of aspirin; Z79.890 Hormone replacement therapy; Z79.899 Other long term (current) drug therapy ==

== ENCOUNTER → 2022-09-09 | Outpatient (CLI) | payer MEDICARE, OTHER ==
[~2022-09-09] MED LIST changes: +TRIAMCINOLONE ACETONIDE SUSP 40MG/ML 1ML VIAL As Ordered ONE
== END ==
LOC: M PAIN 10:30
PROVIDERS: ATTEND Anesthesiology
DX: M79.18 Myalgia, other site (principal); G89.29 Other chronic pain; E03.9 Hypothyroidism, unspecified; F03.90 Unspecified dementia, unspecified severity, without behavioral disturbance, psychotic disturbance, mood disturbance, and anxiety; Z88.2 Allergy status to sulfonamides; Z88.8 Allergy status to other drugs, medicaments and biological substances; Z91.018 Allergy to other foods; Z91.040 Latex allergy status; Z79.82 Long term (current) use of aspirin; Z79.890 Hormone replacement therapy; Z79.899 Other long term (current) drug therapy
CPT/HCPCS: 20552; J0665; J3301

== ENCOUNTER → 2022-12-09 | Outpatient (CLI) | payer MEDICARE, OTHER ==
[~2022-12-09] MED LIST changes: -TRIAMCINOLONE ACETONIDE SUSP 40MG/ML 1ML VIAL As Ordered ONE
== END ==
LOC: M PAIN 14:30
PROVIDERS: ATTEND Nurse Practitioner Family
DX: M79.10 Myalgia, unspecified site (principal); G89.29 Other chronic pain; Z80.3 Family history of malignant neoplasm of breast; Z80.51 Family history of malignant neoplasm of kidney; Z88.2 Allergy status to sulfonamides; Z88.4 Allergy status to anesthetic agent; Z91.018 Allergy to other foods; Z91.040 Latex allergy status; Z79.82 Long term (current) use of aspirin; Z79.899 Other long term (current) drug therapy

== ENCOUNTER → 2022-12-14 | Outpatient (CLI) | payer MEDICARE, OTHER | LOC: M WHC 11:08 | PROVIDERS: ATTEND Physician Assistant Medical | DX: Z12.31 Encounter for screening mammogram for malignant neoplasm of breast (principal) ==

== ENCOUNTER → 2023-05-11 | Outpatient (REF) | payer MEDICARE, OTHER ==
[~2023-05-11] MED LIST changes: -ASPI-161 PO; +ASPI-615 PO
[2023-05-11 18:07] LABS: BASO # 0.1 10^3/uL (0.0-0.2); BASO % 0.8 % (0.0-1.0); EOS # 0.1 10^3/uL (0.0-0.5); EOS % 1.8 % (0.0-3.0); HEMATOCRIT 39.8 % (36.0-47.0); HEMOGLOBIN 12.9 g/dl (12.0-15.5); LYMPH # 2.5 10^3/uL (1.5-5.0); LYMPH % 32.6 % (24.0-44.0); MEAN CORPUSCULAR HEMOGLOBIN 32.5 pg (27.0-33.0); MEAN CORPUSCULAR HGB CONC 32.4 g/dl (32.0-36.5); MEAN CORPUSCULAR VOLUME 100.3 fl (80.0-96.0); MONO # 0.4 10^3/uL (0.0-0.8); MONO % 4.7 % (2.0-8.0); NEUTROPHILS # 4.6 10^3/uL (1.5-8.5); NEUTROPHILS % 59.8 % (36.0-66.0); PLATELET COUNT, AUTOMATED 278 10^3/uL (150-450); RED BLOOD COUNT 3.97 10^6/uL (4.00-5.40); WHITE BLOOD COUNT 7.7 10^3/uL (4.0-10.0)
[2023-05-11 18:34] LABS: HEMOGLOBIN A1c 5.2 % (4.0-6.0)
[2023-05-11 18:35] LABS: ALBUMIN 3.6 G/DL (3.2-5.2); ALKALINE PHOSPHATASE 82 U/L (46-116); ALT/SGPT 18 U/L (7.0-40); AST/SGOT 19 U/L (<34); BILIRUBIN,TOTAL 0.3 MG/DL (0.3-1.2); BLOOD UREA NITROGEN 25 MG/DL (9-23); CALCIUM LEVEL 9.6 MG/DL (8.3-10.6); CARBON DIOXIDE LEVEL 31 MMOL/L (20-31); CHLORIDE LEVEL 106 MMOL/L (98-107); CHOLESTEROL LEVEL 164 MG/DL (<200); CHOLESTEROL RISK RATIO 2.44 (<5); CREATININE FOR GFR 0.63 MG/DL (0.55-1.30); FREE T4 0.94 NG/DL (0.89-1.76); GLOMERULAR FILTRATION RATE > 60.0 (>32); GLUCOSE, FASTING 85 MG/DL (74-106); HDL CHOLESTEROL 67.2 MG/DL (>40); LDL CHOLESTEROL 78.4 MG/DL (<100); NON-HDL-C 96.8 MG/DL; POTASSIUM SERUM 4.5 MMOL/L (3.5-5.1); SODIUM LEVEL 144 MMOL/L (136-145); TOTAL PROTEIN 6.2 G/DL (5.7-8.2); TRIGLYCERIDES LEVEL 92 MG/DL (<150)
[2023-05-11 18:36] LABS: THYROID STIMULATING HORMONE 2.306 uIU/ML (0.55-4.78)
[2023-05-11 18:37] LABS: TOTAL 25(OH) VITAMIN D 79.8 NG/ML (20.0-100.0)
== END ==
LOC: M SFHCADAM 12:14
PROVIDERS: ATTEND Physician Assistant Medical
DX: E78.2 Mixed hyperlipidemia (principal); G25.0 Essential tremor; E03.9 Hypothyroidism, unspecified; R73.01 Impaired fasting glucose; Z79.899 Other long term (current) drug therapy

== ENCOUNTER → 2023-05-23 | Outpatient (REF) | payer MEDICARE, OTHER ==
[2023-05-23 18:18] LABS: CALCIUM LEVEL 9.3 MG/DL (8.3-10.6)
[2023-05-23 18:24] LABS: TOTAL 25(OH) VITAMIN D 77.6 NG/ML (20.0-100.0)
== END ==
LOC: M LABDRWAD 17:46
PROVIDERS: ATTEND Internal Medicine Endocrinology, Diabetes & Metabolism
DX: M81.0 Age-related osteoporosis without current pathological fracture (principal); E55.9 Vitamin D deficiency, unspecified

== ENCOUNTER → 2023-07-01 | Outpatient (REF) | payer MEDICARE, OTHER ==
[~2023-07-01] MED LIST changes: +BRIN15DR; +LATANOPROST; +MIRT-10
== END ==
LOC: M SFHCPLAZ 14:50
PROVIDERS: ATTEND Physician Assistant Medical
DX: R30.0 Dysuria (principal)

== ENCOUNTER → 2023-08-10 | Outpatient (CLI) | payer MEDICARE, OTHER ==
[2023-08-10 18:50] LABS: BASO % 0.6 % (0.0-1.0); EOS # 0.1 10^3/uL (0.0-0.5); EOS % 0.8 % (0.0-3.0); HEMATOCRIT 39.6 % (36.0-47.0); HEMOGLOBIN 12.9 g/dl (12.0-15.5); LYMPH # 2.4 10^3/uL (1.5-5.0); LYMPH % 33.6 % (24.0-44.0); MEAN CORPUSCULAR HEMOGLOBIN 31.8 pg (27.0-33.0); MEAN CORPUSCULAR HGB CONC 32.6 g/dl (32.0-36.5); MEAN CORPUSCULAR VOLUME 97.5 fl (80.0-96.0); MONO # 0.4 10^3/uL (0.0-0.8); MONO % 5.2 % (2.0-8.0); NEUTROPHILS # 4.3 10^3/uL (1.5-8.5); NEUTROPHILS % 59.5 % (36.0-66.0); PLATELET COUNT, AUTOMATED 287 10^3/uL (150-450); RED BLOOD COUNT 4.06 10^6/uL (4.00-5.40); WHITE BLOOD COUNT 7.3 10^3/uL (4.0-10.0)
[2023-08-10 19:18] LABS: ALBUMIN 3.8 G/DL (3.2-5.2); ALKALINE PHOSPHATASE 91 U/L (46-116); ALT/SGPT 30 U/L (7.0-40); AST/SGOT 26 U/L (<34); BILIRUBIN,TOTAL 0.2 MG/DL (0.3-1.2); BLOOD UREA NITROGEN 19 MG/DL (9-23); CALCIUM LEVEL 9.4 MG/DL (8.3-10.6); CARBON DIOXIDE LEVEL 30 MMOL/L (20-31); CHLORIDE LEVEL 107 MMOL/L (98-107); CREATININE FOR GFR 0.66 MG/DL (0.55-1.30); GLOMERULAR FILTRATION RATE > 60.0 (>32); GLUCOSE, FASTING 123 MG/DL (74-106); POTASSIUM SERUM 3.9 MMOL/L (3.5-5.1); SODIUM LEVEL 145 MMOL/L (136-145); TOTAL PROTEIN 6.4 G/DL (5.7-8.2)
[2023-08-10 19:45] LABS: IMMUNOGLOBULIN A 52.2 MG/DL (40-350); IMMUNOGLOBULIN G 839 MG/DL (650-1600)
[2023-08-12 23:17] LABS: T P ELECTROPHORESIS SO 6.5 g/dL (6.1-8.1)
[2023-08-15 16:42] LABS: FREE KAPPA LIGHT CHAINS SERUM 15.8 mg/L (3.3-19.4); FREE LAMBDA LIGHT CHAINS SERUM 428.3 mg/L (5.7-26.3); KAPPA/LAMBDA RATIO SERUM 0.04 (0.26-1.65)
== END ==
LOC: M PLALAB 16:11
PROVIDERS: ATTEND Internal Medicine Medical Oncology
DX: D47.2 Monoclonal gammopathy (principal)

== ENCOUNTER → 2023-11-16 | Outpatient (REF) | payer MEDICARE, OTHER ==
[2023-11-16 18:29] LABS: BASO # 0.1 10^3/uL (0.0-0.2); BASO % 0.8 % (0.0-1.0); EOS # 0.1 10^3/uL (0.0-0.5); EOS % 1.5 % (0.0-3.0); HEMATOCRIT 40.5 % (36.0-47.0); HEMOGLOBIN 13.1 g/dl (12.0-15.5); LYMPH # 2.6 10^3/uL (1.5-5.0); LYMPH % 33.5 % (24.0-44.0); MEAN CORPUSCULAR HEMOGLOBIN 32.2 pg (27.0-33.0); MEAN CORPUSCULAR HGB CONC 32.3 g/dl (32.0-36.5); MEAN CORPUSCULAR VOLUME 99.5 fl (80.0-96.0); MONO # 0.4 10^3/uL (0.0-0.8); MONO % 5.7 % (2.0-8.0); NEUTROPHILS # 4.4 10^3/uL (1.5-8.5); NEUTROPHILS % 56.6 % (36.0-66.0); PLATELET COUNT, AUTOMATED 283 10^3/uL (150-450); RED BLOOD COUNT 4.07 10^6/uL (4.00-5.40); WHITE BLOOD COUNT 7.8 10^3/uL (4.0-10.0)
[2023-11-16 18:38] LABS: ALBUMIN 3.7 G/DL (3.2-5.2); ALKALINE PHOSPHATASE 81 U/L (46-116); ALT/SGPT 12 U/L (7.0-40); AST/SGOT 15 U/L (<34); BILIRUBIN,TOTAL 0.2 MG/DL (0.3-1.2); BLOOD UREA NITROGEN 22 MG/DL (9-23); CARBON DIOXIDE LEVEL 32 MMOL/L (20-31); CHLORIDE LEVEL 106 MMOL/L (98-107); CREATININE FOR GFR 0.58 MG/DL (0.55-1.30); GLOMERULAR FILTRATION RATE > 60.0 (>32); GLUCOSE, FASTING 84 MG/DL (74-106); SODIUM LEVEL 142 MMOL/L (136-145); TOTAL PROTEIN 6.7 G/DL (5.7-8.2)
== END ==
LOC: M LABDRWAD 17:26
PROVIDERS: ATTEND Internal Medicine Medical Oncology
DX: D47.2 Monoclonal gammopathy (principal)

== ENCOUNTER → 2023-12-12 | Outpatient (CLI) | payer MEDICARE, OTHER | LOC: M LAB 11:17 | PROVIDERS: ATTEND Internal Medicine Endocrinology, Diabetes & Metabolism | DX: M81.0 Age-related osteoporosis without current pathological fracture (principal) ==

== ENCOUNTER → 2023-12-23 | Outpatient (CLI) | payer MEDICARE, OTHER | LOC: M WHC 10:20 | PROVIDERS: ATTEND Physician Assistant Medical | DX: Z12.31 Encounter for screening mammogram for malignant neoplasm of breast (principal); R92.323 Mammographic fibroglandular density, bilateral breasts ==

== ENCOUNTER 2023-12-31 11:20 | Inpatient (IN) | payer MEDICARE, OTHER ==
[~2023-12-31] VITALS: Ht 157.5 cm; Wt 44.8 kg
[~2023-12-31 11:20] MED LIST changes: -BRIN15DR; +BRIN15DR OU; -MIRT-10; +MIRT-10 PO
[2023-12-31 12:07] LABS: BASO % 0.6 % (0.0-1.0); EOS % 0.5 % (0.0-3.0); HEMATOCRIT 37.8 % (36.0-47.0); HEMOGLOBIN 12.7 g/dl (12.0-15.5); LYMPH # 1.9 10^3/uL (1.5-5.0); LYMPH % 30.5 % (24.0-44.0); MEAN CORPUSCULAR HEMOGLOBIN 31.9 pg (27.0-33.0); MEAN CORPUSCULAR HGB CONC 33.6 g/dl (32.0-36.5); MONO # 0.4 10^3/uL (0.0-0.8); MONO % 6.2 % (2.0-8.0); NEUTROPHILS # 3.9 10^3/uL (1.5-8.5); NEUTROPHILS % 61.9 % (36.0-66.0); PLATELET COUNT, AUTOMATED 256 10^3/uL (150-450); RED BLOOD COUNT 3.98 10^6/uL (4.00-5.40); WHITE BLOOD COUNT 6.3 10^3/uL (4.0-10.0)
[2023-12-31 12:24] LABS: FREE T4 1.03 NG/DL (0.89-1.76)
[2023-12-31 12:25] LABS: THYROID STIMULATING HORMONE 1.24 uIU/ML (0.55-4.78)
[2023-12-31 12:39] LABS: BILIRUBIN,DIRECT 0.1 MG/DL (<0.4); BILIRUBIN,TOTAL 0.4 MG/DL (0.3-1.2); CALCIUM LEVEL 14.5 MG/DL (8.3-10.6); GLOMERULAR FILTRATION RATE 56.5 (>32); MAGNESIUM LEVEL 1.6 MG/DL (1.8-2.4); POTASSIUM SERUM 3.4 MMOL/L (3.5-5.1); TOTAL PROTEIN 6.8 G/DL (5.7-8.2)
[2023-12-31] MEDS: POTASSIUM CHLORIDE 10MEQ SR TABLET PO ONE (13:09)
[2023-12-31] MEDS: LIDOCAINE 2% 5ML JELLY UROJET TOP ONE (13:09)
[2023-12-31] MEDS: MAG SULF 1GM/100ML (MAG RUN) 1 GM in IV 1 EA IV ONE (13:18)
[2023-12-31] MEDS ORDERED: CALCITONIN SALMON (MIACALCIN) 400INTERNATIONAL UNITS/2ML VIAL SQ SCH (13:45)
[2023-12-31] MEDS: cefTRIAXone SOD 1 GM in DEXTROSE 5% (D5W) ADV/MINI-BAG 50 ML IV ONE (13:45)
[2023-12-31] MEDS ORDERED: NS (Normal Saline) 0.9% 1,000 ML IV SCH (14:15)
[2023-12-31] MEDS ORDERED: VITA200021 PO (14:30)
[2023-12-31] MEDS ORDERED: XALA0.007 OU (14:30)
[2023-12-31] MEDS ORDERED: HOME MED LIST COMPLETE! XX SCH (14:30)
[2023-12-31 14:36] LABS: PTH INTACT 23.3 PG/ML (18.5-88.0)
[2023-12-31] MEDS: NS (Normal Saline) 0.9% 1,000 ML IV ONE (14:44)
[2023-12-31 15:20] VITALS: BP 118/80; TEMP 98.5; O2SAT 99
[2023-12-31] MEDS: NS 500 ML IV ONE (15:54)
[2023-12-31] MEDS: CALCITONIN SALMON (MIACALCIN) 400INTERNATIONAL UNITS/2ML VIAL SQ SCH (15:54)
[2023-12-31 16:00] VITALS: BP 124/80; TEMP 97.8; O2SAT 95
[2023-12-31] MEDS: NS (Normal Saline) 0.9% 1,000 ML IV SCH (18:00)
[2023-12-31] MEDS: HALOPERIDOL LACTATE 5MG/ML VIAL IV PRN (19:10)
[2023-12-31] MEDS ORDERED: OLANZapine ORAL DISINTEGRATING TAB 5MG PO ONE (19:30)
[2023-12-31 19:55] VITALS: BP 130/81; TEMP 98.2; O2SAT 100
[2023-12-31 20:04] LABS: IONIZED CALCIUM 5.2 MG/DL (4.5-5.3)
[2023-12-31 20:47] LABS: BLOOD UREA NITROGEN 21 MG/DL (9-23); CALCIUM LEVEL 11.1 MG/DL (8.3-10.6); CARBON DIOXIDE LEVEL 27 MMOL/L (20-31); CHLORIDE LEVEL 116 MMOL/L (98-107); CREATININE FOR GFR 0.81 MG/DL (0.55-1.30); GLOMERULAR FILTRATION RATE > 60.0 (>32); GLUCOSE, FASTING 131 MG/DL (74-106); POTASSIUM SERUM 3.5 MMOL/L (3.5-5.1); SODIUM LEVEL 154 MMOL/L (136-145)
[2023-12-31] MEDS: PRIMIDONE 50MG TAB PO SCH (21:57)
[2023-12-31] MEDS: MIRTAZAPINE 15 MG TAB PO SCH (21:57)
[2023-12-31] MEDS: LATANOPROST 0.005% OPHTH SOLN 2.5 ML OU SCH (21:57)
[2023-12-31] MEDS: BRINZOLAMIDE 1% OPHTH SUSP (AZOPT) 10ML OU SCH (21:57)
[2023-12-31 23:53] VITALS: BP 152/58; TEMP 97.5; O2SAT 99
[2024-01-01 04:30] VITALS: BP 137/63; TEMP 98.2; O2SAT 96
[2024-01-01] MEDS: LEVOTHYROXINE 50MCG TABLET (0.05MG) PO SCH (05:57)
[2024-01-01 06:28] LABS: BASO % 0.4 % (0.0-1.0); HEMATOCRIT 30.7 % (36.0-47.0); LYMPH # 1.5 10^3/uL (1.5-5.0); LYMPH % 19.5 % (24.0-44.0); MEAN CORPUSCULAR HGB CONC 33.2 g/dl (32.0-36.5); MEAN CORPUSCULAR VOLUME 96.2 fl (80.0-96.0); MONO # 0.6 10^3/uL (0.0-0.8); MONO % 7.3 % (2.0-8.0); NEUTROPHILS # 5.6 10^3/uL (1.5-8.5); NEUTROPHILS % 72.5 % (36.0-66.0); PLATELET COUNT, AUTOMATED 198 10^3/uL (150-450); RED BLOOD COUNT 3.19 10^6/uL (4.00-5.40); WHITE BLOOD COUNT 7.7 10^3/uL (4.0-10.0)
[2024-01-01 06:36] LABS: HEMOGLOBIN 10.2 g/dl (12.0-15.5)
[2024-01-01 06:57] LABS: BLOOD UREA NITROGEN 17 MG/DL (9-23); CALCIUM LEVEL 9.2 MG/DL (8.3-10.6); CARBON DIOXIDE LEVEL 27 MMOL/L (20-31); CHLORIDE LEVEL 119 MMOL/L (98-107); CREATININE FOR GFR 0.76 MG/DL (0.55-1.30); GLOMERULAR FILTRATION RATE > 60.0 (>32); GLUCOSE, FASTING 97 MG/DL (74-106); POTASSIUM SERUM 3.3 MMOL/L (3.5-5.1); SODIUM LEVEL 157 MMOL/L (136-145)
[2024-01-01 07:30] VITALS: BP 105/66; TEMP 97.5; O2SAT 94
[2024-01-01 07:32] LABS: MAGNESIUM LEVEL 1.1 MG/DL (1.8-2.4)
[2024-01-01] MEDS: MAG SULF 1GM/100ML (MAG RUN) 1 GM in IV 1 EA IV SCH (10:34)
[2024-01-01] MEDS: ASPIRIN 81MG ENTERIC TABLET PO SCH (10:34)
[2024-01-01] MEDS: POTASSIUM CHLORIDE 10MEQ SR TABLET PO ONE (10:35)
[2024-01-01] MEDS: ENOXAPARIN 30MG/0.3ML SYRINGE (J1650 PER 10MG) SC SCH (10:36)
[2024-01-01] MEDS: D5W 1,000 ML IV SCH (10:37)
[2024-01-01 11:54] VITALS: BP 138/62; TEMP 97.9; O2SAT 95
[2024-01-01 16:00] VITALS: BP 132/60; TEMP 98.1; O2SAT 95
[2024-01-01] MEDS: cefTRIAXone SOD 1 GM in DEXTROSE 5% (D5W) ADV/MINI-BAG 50 ML IV SCH (17:18)
[2024-01-01 17:58] LABS: BLOOD UREA NITROGEN 14 MG/DL (9-23); CALCIUM LEVEL 8.2 MG/DL (8.3-10.6); CARBON DIOXIDE LEVEL 26 MMOL/L (20-31); CHLORIDE LEVEL 113 MMOL/L (98-107); CREATININE FOR GFR 0.62 MG/DL (0.55-1.30); GLOMERULAR FILTRATION RATE > 60.0 (>32); GLUCOSE, FASTING 149 MG/DL (74-106); MAGNESIUM LEVEL 1.6 MG/DL (1.8-2.4); POTASSIUM SERUM 3.5 MMOL/L (3.5-5.1); SODIUM LEVEL 147 MMOL/L (136-145)
[2024-01-01 20:11] VITALS: BP 131/60; TEMP 98.1; O2SAT 96
[2024-01-01 23:00] VITALS: BP 117/56; TEMP 98; O2SAT 94
[2024-01-01] MEDS: MAG SULF 1GM/100ML (MAG RUN) 1 GM in IV 1 EA IV ONE (23:01)
[2024-01-02 04:24] VITALS: BP 118/57; TEMP 97.2; O2SAT 95
[2024-01-02 06:06] LABS: BASO % 0.3 % (0.0-1.0); EOS % 0.1 % (0.0-3.0); HEMATOCRIT 31.2 % (36.0-47.0); HEMOGLOBIN 10.4 g/dl (12.0-15.5); LYMPH # 1.9 10^3/uL (1.5-5.0); LYMPH % 21.2 % (24.0-44.0); MEAN CORPUSCULAR HEMOGLOBIN 31.5 pg (27.0-33.0); MEAN CORPUSCULAR HGB CONC 33.3 g/dl (32.0-36.5); MEAN CORPUSCULAR VOLUME 94.5 fl (80.0-96.0); MONO # 0.6 10^3/uL (0.0-0.8); MONO % 6.9 % (2.0-8.0); NEUTROPHILS # 6.3 10^3/uL (1.5-8.5); NEUTROPHILS % 71.2 % (36.0-66.0); PLATELET COUNT, AUTOMATED 217 10^3/uL (150-450); WHITE BLOOD COUNT 8.8 10^3/uL (4.0-10.0)
[2024-01-02 06:28] LABS: BLOOD UREA NITROGEN 11 MG/DL (9-23); CALCIUM LEVEL 7.5 MG/DL (8.3-10.6); CARBON DIOXIDE LEVEL 26 MMOL/L (20-31); CHLORIDE LEVEL 112 MMOL/L (98-107); CREATININE FOR GFR 0.64 MG/DL (0.55-1.30); GLOMERULAR FILTRATION RATE > 60.0 (>32); GLUCOSE, FASTING 128 MG/DL (74-106); POTASSIUM SERUM 3.2 MMOL/L (3.5-5.1); SODIUM LEVEL 147 MMOL/L (136-145)
[2024-01-02 07:37] VITALS: BP 118/56; TEMP 97.5; O2SAT 96
[2024-01-02 07:47] LABS: MAGNESIUM LEVEL 1.4 MG/DL (1.8-2.4)
[2024-01-02] MEDS: MAG SULF 1GM/100ML (MAG RUN) 1 GM in IV 1 EA IV SCH (09:22)
[2024-01-02 15:11] LABS: T P ELECTROPHORESIS SO 5.2 g/dL (6.1-8.1)
[2024-01-02 16:00] VITALS: BP 126/68; TEMP 97.6; O2SAT 96
[2024-01-02] MEDS: ACETAMINOPHEN 325 MG TAB PO PRN (18:29)
[2024-01-02 19:35] VITALS: BP 102/52; TEMP 97.4; O2SAT 97
[2024-01-03 04:26] VITALS: BP 105/52; TEMP 97.3; O2SAT 96
[2024-01-03 06:36] LABS: BASO % 0.6 % (0.0-1.0); EOS # 0.1 10^3/uL (0.0-0.5); EOS % 1.1 % (0.0-3.0); HEMATOCRIT 30.7 % (36.0-47.0); HEMOGLOBIN 10.6 g/dl (12.0-15.5); LYMPH # 2.1 10^3/uL (1.5-5.0); LYMPH % 33.5 % (24.0-44.0); MEAN CORPUSCULAR HEMOGLOBIN 31.7 pg (27.0-33.0); MEAN CORPUSCULAR HGB CONC 34.5 g/dl (32.0-36.5); MEAN CORPUSCULAR VOLUME 91.9 fl (80.0-96.0); MONO # 0.4 10^3/uL (0.0-0.8); MONO % 6.1 % (2.0-8.0); NEUTROPHILS # 3.6 10^3/uL (1.5-8.5); NEUTROPHILS % 58.2 % (36.0-66.0); PLATELET COUNT, AUTOMATED 203 10^3/uL (150-450); RED BLOOD COUNT 3.34 10^6/uL (4.00-5.40); WHITE BLOOD COUNT 6.2 10^3/uL (4.0-10.0)
[2024-01-03 07:48] LABS: ALBUMIN 2.6 G/DL (3.2-5.2); ALKALINE PHOSPHATASE 63 U/L (35-104); ALT/SGPT 30 U/L (7.0-40); AST/SGOT 62 U/L (<34); BILIRUBIN,TOTAL 0.2 MG/DL (0.3-1.2); BLOOD UREA NITROGEN 11 MG/DL (9-23); CALCIUM LEVEL 7.2 MG/DL (8.3-10.6); CARBON DIOXIDE LEVEL 24 MMOL/L (20-31); CHLORIDE LEVEL 113 MMOL/L (98-107); CREATININE FOR GFR 0.59 MG/DL (0.55-1.30); GLOMERULAR FILTRATION RATE > 60.0 (>32); GLUCOSE, FASTING 100 MG/DL (74-106); MAGNESIUM LEVEL 1.7 MG/DL (1.8-2.4); PHOSPHORUS LEVEL 1.4 MG/DL (2.4-5.1); SODIUM LEVEL 145 MMOL/L (136-145); TOTAL PROTEIN 4.9 G/DL (5.7-8.2)
[2024-01-03 07:50] VITALS: BP 123/58; TEMP 98.2; O2SAT 96
[2024-01-03] MEDS: VITAMIN D 1,000 INTERNATIONAL UNITS TABLET PO SCH (09:05)
[2024-01-03] MEDS ORDERED: SLF 3 ML SYR XX SCH (11:35)
[2024-01-03 11:49] VITALS: BP 121/68; TEMP 98.3; O2SAT 97
[2024-01-03 12:42] LABS: FREE KAPPA LIGHT CHAINS SERUM 11.4 mg/L (3.3-19.4); FREE LAMBDA LIGHT CHAINS SERUM 392.3 mg/L (5.7-26.3); KAPPA/LAMBDA RATIO SERUM 0.03 (0.26-1.65)
[2024-01-03] MEDS: MAG SULF 1GM/100ML (MAG RUN) 1 GM in IV 1 EA IV SCH (12:46)
[2024-01-03] MEDS: K-PHOS NEUTRAL 250MG TABLET (SOD.PHOSPHATE/POT.PHOSPHATE) PO SCH (12:47)
[2024-01-03] MEDS: POTASSIUM CHLORIDE 10MEQ SR TABLET PO SCH (12:47)
[2024-01-03 15:14] VITALS: BP 124/57; TEMP 98.3; O2SAT 96
[2024-01-03 19:27] VITALS: BP 115/56; TEMP 98; O2SAT 97
[2024-01-03] MEDS: MAGNESIUM OXIDE 400MG TAB (MAG-OX) PO SCH (21:02)
[2024-01-04 05:15] VITALS: BP 121/58; TEMP 97.6; O2SAT 98
[2024-01-04 06:43] LABS: BASO % 0.7 % (0.0-1.0); EOS # 0.1 10^3/uL (0.0-0.5); EOS % 1.8 % (0.0-3.0); HEMATOCRIT 30.8 % (36.0-47.0); HEMOGLOBIN 10.4 g/dl (12.0-15.5); LYMPH # 2.9 10^3/uL (1.5-5.0); LYMPH % 48.2 % (24.0-44.0); MEAN CORPUSCULAR HEMOGLOBIN 31.2 pg (27.0-33.0); MEAN CORPUSCULAR HGB CONC 33.8 g/dl (32.0-36.5); MEAN CORPUSCULAR VOLUME 92.5 fl (80.0-96.0); MONO # 0.4 10^3/uL (0.0-0.8); MONO % 6.4 % (2.0-8.0); NEUTROPHILS # 2.6 10^3/uL (1.5-8.5); NEUTROPHILS % 42.7 % (36.0-66.0); PLATELET COUNT, AUTOMATED 244 10^3/uL (150-450); RED BLOOD COUNT 3.33 10^6/uL (4.00-5.40)
[2024-01-04 07:20] LABS: ALBUMIN 2.8 G/DL (3.2-5.2); ALKALINE PHOSPHATASE 68 U/L (35-104); ALT/SGPT 28 U/L (7.0-40); AST/SGOT 53 U/L (<34); BILIRUBIN,TOTAL 0.2 MG/DL (0.3-1.2); BLOOD UREA NITROGEN 10 MG/DL (9-23); CALCIUM LEVEL 7.5 MG/DL (8.3-10.6); CARBON DIOXIDE LEVEL 23 MMOL/L (20-31); CHLORIDE LEVEL 114 MMOL/L (98-107); CREATININE FOR GFR 0.56 MG/DL (0.55-1.30); GLOMERULAR FILTRATION RATE > 60.0 (>32); GLUCOSE, FASTING 106 MG/DL (74-106); MAGNESIUM LEVEL 1.9 MG/DL (1.8-2.4); PHOSPHORUS LEVEL 1.8 MG/DL (2.4-5.1); POTASSIUM SERUM 3.6 MMOL/L (3.5-5.1); SODIUM LEVEL 146 MMOL/L (136-145); TOTAL PROTEIN 5.3 G/DL (5.7-8.2)
[2024-01-04 07:48] VITALS: BP 107/71; TEMP 98.2; O2SAT 96
[2024-01-04 10:26] LABS: ALBUMIN SPEP 3.2 g/dL (3.8-4.8); ALPHA-1-GLOBULINS SO 0.3 g/dL (0.2-0.3); ALPHA-2-GLOBULINS SO 0.6 g/dL (0.5-0.9); BETA 2 GLOBULIN 0.2 g/dL (0.2-0.5); BETA-GLOBULIN SO 0.3 g/dL (0.4-0.6); GAMMA GLOBULINS SO 0.6 g/dL (0.8-1.7); SPEP ABN PROTEIN BAND 1 0.3 g/dL (NONE DETECTED)
[2024-01-04 11:19] VITALS: BP 114/58; TEMP 98.4; O2SAT 98
[2024-01-04 12:49] VITALS: BP 133/64; TEMP 97.5; O2SAT 99
[2024-01-04] MEDS: POTASSIUM PHOSPHATE INJ 20 MMOL in D5W 250 ML IV ONE (17:43)
[2024-01-04 20:15] VITALS: BP 103/54; TEMP 98.1; O2SAT 91
[2024-01-05 04:00] VITALS: BP 106/89; TEMP 97.9; O2SAT 94
[2024-01-05 06:07] LABS: EOS # 0.1 10^3/uL (0.0-0.5); HEMATOCRIT 27.7 % (36.0-47.0); HEMOGLOBIN 9.2 g/dl (12.0-15.5); LYMPH % 48.8 % (24.0-44.0); MEAN CORPUSCULAR HEMOGLOBIN 31.3 pg (27.0-33.0); MEAN CORPUSCULAR HGB CONC 33.2 g/dl (32.0-36.5); MEAN CORPUSCULAR VOLUME 94.2 fl (80.0-96.0); MONO # 0.4 10^3/uL (0.0-0.8); MONO % 8.9 % (2.0-8.0); NEUTROPHILS # 1.6 10^3/uL (1.5-8.5); NEUTROPHILS % 38.1 % (36.0-66.0); PLATELET COUNT, AUTOMATED 222 10^3/uL (150-450); RED BLOOD COUNT 2.94 10^6/uL (4.00-5.40); WHITE BLOOD COUNT 4.1 10^3/uL (4.0-10.0)
[2024-01-05 06:47] LABS: ALBUMIN 2.5 G/DL (3.2-5.2); ALKALINE PHOSPHATASE 64 U/L (35-104); ALT/SGPT 42 U/L (7.0-40); AST/SGOT 75 U/L (<34); BILIRUBIN,TOTAL 0.2 MG/DL (0.3-1.2); BLOOD UREA NITROGEN 9 MG/DL (9-23); CALCIUM LEVEL 6.9 MG/DL (8.3-10.6); CARBON DIOXIDE LEVEL 23 MMOL/L (20-31); CHLORIDE LEVEL 116 MMOL/L (98-107); CREATININE FOR GFR 0.52 MG/DL (0.55-1.30); GLOMERULAR FILTRATION RATE > 60.0 (>32); GLUCOSE, FASTING 98 MG/DL (74-106); MAGNESIUM LEVEL 1.5 MG/DL (1.8-2.4); PHOSPHORUS LEVEL 2.6 MG/DL (2.4-5.1); POTASSIUM SERUM 4.1 MMOL/L (3.5-5.1); SODIUM LEVEL 146 MMOL/L (136-145)
[2024-01-05] MEDS: MAGNESIUM OXIDE 400MG TAB (MAG-OX) PO SCH (09:08)
[2024-01-05] MEDS: D5W/0.2% SODIUM CHLORIDE 1,000 ML IV SCH (09:54)
[2024-01-05 12:00] VITALS: BP 88/67; TEMP 97.2; O2SAT 98
[2024-01-05 12:38] VITALS: BP 116/58
[2024-01-05 18:00] LABS: BLOOD UREA NITROGEN 8 MG/DL (9-23); CALCIUM LEVEL 6.8 MG/DL (8.3-10.6); CARBON DIOXIDE LEVEL 21 MMOL/L (20-31); CHLORIDE LEVEL 113 MMOL/L (98-107); CREATININE FOR GFR 0.46 MG/DL (0.55-1.30); GLOMERULAR FILTRATION RATE > 60.0 (>32); GLUCOSE, FASTING 137 MG/DL (74-106); SODIUM LEVEL 142 MMOL/L (136-145)
[2024-01-05 20:00] VITALS: BP 120/58; TEMP 98.4; O2SAT 94
[2024-01-06 04:00] VITALS: BP 106/58; TEMP 97; O2SAT 97
[2024-01-06 04:58] LABS: BASO % 0.8 % (0.0-1.0); EOS # 0.2 10^3/uL (0.0-0.5); EOS % 3.6 % (0.0-3.0); HEMATOCRIT 29.2 % (36.0-47.0); HEMOGLOBIN 9.9 g/dl (12.0-15.5); LYMPH # 1.9 10^3/uL (1.5-5.0); LYMPH % 36.9 % (24.0-44.0); MEAN CORPUSCULAR HEMOGLOBIN 31.7 pg (27.0-33.0); MEAN CORPUSCULAR HGB CONC 33.9 g/dl (32.0-36.5); MEAN CORPUSCULAR VOLUME 93.6 fl (80.0-96.0); MONO # 0.4 10^3/uL (0.0-0.8); MONO % 8.4 % (2.0-8.0); NEUTROPHILS # 2.5 10^3/uL (1.5-8.5); NEUTROPHILS % 49.9 % (36.0-66.0); PLATELET COUNT, AUTOMATED 242 10^3/uL (150-450); RED BLOOD COUNT 3.12 10^6/uL (4.00-5.40)
[2024-01-06 05:30] LABS: ALBUMIN 2.8 G/DL (3.2-5.2); ALKALINE PHOSPHATASE 70 U/L (35-104); ALT/SGPT 57 U/L (7.0-40); AST/SGOT 92 U/L (<34); BILIRUBIN,TOTAL 0.2 MG/DL (0.3-1.2); BLOOD UREA NITROGEN 6 MG/DL (9-23); CALCIUM LEVEL 7.1 MG/DL (8.3-10.6); CARBON DIOXIDE LEVEL 20 MMOL/L (20-31); CHLORIDE LEVEL 117 MMOL/L (98-107); CREATININE FOR GFR 0.49 MG/DL (0.55-1.30); GLOMERULAR FILTRATION RATE > 60.0 (>32); GLUCOSE, FASTING 90 MG/DL (74-106); SODIUM LEVEL 143 MMOL/L (136-145); TOTAL PROTEIN 5.1 G/DL (5.7-8.2)
[2024-01-06 12:00] VITALS: BP 106/59; TEMP 97.9; O2SAT 97
[2024-01-06 14:16] LABS: 25-HYDROXY VITAMIN D2 < 8 pg/mL; 25-HYDROXY VITAMIN D3 10 pg/mL; VITAMIN D 1 25 DIHYDROXY 10 pg/mL (18-72)
[2024-01-06 20:10] VITALS: BP 109/58; TEMP 98.1; O2SAT 97
[2024-01-06] MEDS: RAMELTEON 8 MG TAB (ROZEREM) PO ONE (21:02)
[2024-01-07 05:50] VITALS: BP 107/58; TEMP 97.7; O2SAT 98
[2024-01-07 06:10] LABS: HEMATOCRIT 29.9 % (36.0-47.0); HEMOGLOBIN 9.8 g/dl (12.0-15.5); MEAN CORPUSCULAR HEMOGLOBIN 31.1 pg (27.0-33.0); MEAN CORPUSCULAR HGB CONC 32.8 g/dl (32.0-36.5); MEAN CORPUSCULAR VOLUME 94.9 fl (80.0-96.0); PLATELET COUNT, AUTOMATED 254 10^3/uL (150-450); RED BLOOD COUNT 3.15 10^6/uL (4.00-5.40); WHITE BLOOD COUNT 3.5 10^3/uL (4.0-10.0)
[2024-01-07 06:48] LABS: ALBUMIN 2.7 G/DL (3.2-5.2); ALKALINE PHOSPHATASE 80 U/L (35-104); ALT/SGPT 59 U/L (7.0-40); AST/SGOT 69 U/L (<34); BILIRUBIN,TOTAL 0.2 MG/DL (0.3-1.2); BLOOD UREA NITROGEN 9 MG/DL (9-23); CALCIUM LEVEL 8.8 MG/DL (8.3-10.6); CARBON DIOXIDE LEVEL 21 MMOL/L (20-31); CHLORIDE LEVEL 119 MMOL/L (98-107); CREATININE FOR GFR 0.57 MG/DL (0.55-1.30); GLOMERULAR FILTRATION RATE > 60.0 (>32); GLUCOSE, FASTING 103 MG/DL (74-106); SODIUM LEVEL 142 MMOL/L (136-145); TOTAL PROTEIN 5.2 G/DL (5.7-8.2)
[2024-01-07 07:35] LABS: ATYPICAL LYMPH 15 % (0-5); BASOPHILS 1 % (0-1); EOSINOPHILS 6 % (0-3); LYMPHOCYTES 46 % (16-44); MONOCYTES 5 % (0-5); NEUTROPHILS 27 % (28-66)
[2024-01-07 07:38] LABS: PLATELET ESTIMATE NORMAL (NORMAL)
[2024-01-07] MEDS: RAMELTEON 8 MG TAB (ROZEREM) PO PRN (20:46)
[2024-01-08 05:24] VITALS: BP 94/46; TEMP 97.7; O2SAT 95
[2024-01-08 06:23] LABS: HEMATOCRIT 28.8 % (36.0-47.0); HEMOGLOBIN 9.7 g/dl (12.0-15.5); MEAN CORPUSCULAR HGB CONC 33.7 g/dl (32.0-36.5); PLATELET COUNT, AUTOMATED 281 10^3/uL (150-450); RED BLOOD COUNT 3.03 10^6/uL (4.00-5.40); WHITE BLOOD COUNT 4.9 10^3/uL (4.0-10.0)
[2024-01-08 06:57] LABS: ALBUMIN 2.7 G/DL (3.2-5.2); ALKALINE PHOSPHATASE 82 U/L (35-104); ALT/SGPT 62 U/L (7.0-40); AST/SGOT 65 U/L (<34); BILIRUBIN,TOTAL 0.2 MG/DL (0.3-1.2); BLOOD UREA NITROGEN 18 MG/DL (9-23); CALCIUM LEVEL 9.7 MG/DL (8.3-10.6); CARBON DIOXIDE LEVEL 24 MMOL/L (20-31); CHLORIDE LEVEL 110 MMOL/L (98-107); CREATININE FOR GFR 0.55 MG/DL (0.55-1.30); GLOMERULAR FILTRATION RATE > 60.0 (>32); GLUCOSE, FASTING 114 MG/DL (74-106); POTASSIUM SERUM 5.1 MMOL/L (3.5-5.1); SODIUM LEVEL 144 MMOL/L (136-145); TOTAL PROTEIN 5.1 G/DL (5.7-8.2)
[2024-01-08 10:00] VITALS: BP 115/57
[2024-01-09 05:11] LABS: HEMATOCRIT 28.1 % (36.0-47.0); HEMOGLOBIN 9.4 g/dl (12.0-15.5); MEAN CORPUSCULAR HEMOGLOBIN 32.2 pg (27.0-33.0); MEAN CORPUSCULAR HGB CONC 33.5 g/dl (32.0-36.5); MEAN CORPUSCULAR VOLUME 96.2 fl (80.0-96.0); PLATELET COUNT, AUTOMATED 271 10^3/uL (150-450); RED BLOOD COUNT 2.92 10^6/uL (4.00-5.40); WHITE BLOOD COUNT 3.4 10^3/uL (4.0-10.0)
[2024-01-09 05:30] VITALS: BP 110/58; TEMP 97.7; O2SAT 93
[2024-01-09 05:35] LABS: ALBUMIN 2.6 G/DL (3.2-5.2); ALKALINE PHOSPHATASE 74 U/L (35-104); ALT/SGPT 59 U/L (7.0-40); AST/SGOT 59 U/L (<34); BILIRUBIN,TOTAL 0.2 MG/DL (0.3-1.2); BLOOD UREA NITROGEN 17 MG/DL (9-23); CALCIUM LEVEL 9.2 MG/DL (8.3-10.6); CARBON DIOXIDE LEVEL 28 MMOL/L (20-31); CHLORIDE LEVEL 108 MMOL/L (98-107); CREATININE FOR GFR 0.58 MG/DL (0.55-1.30); GLOMERULAR FILTRATION RATE > 60.0 (>32); GLUCOSE, FASTING 98 MG/DL (74-106); POTASSIUM SERUM 4.3 MMOL/L (3.5-5.1); SODIUM LEVEL 142 MMOL/L (136-145); TOTAL PROTEIN 5.1 G/DL (5.7-8.2)
[2024-01-09] MEDS ORDERED: HYOSCYAMINE SULFATE 0.125 MG SUBL TABLET PO PRN (16:10)
[2024-01-09] MEDS ORDERED: LORazepam 1 MG TAB PO PRN (16:10)
[2024-01-09] MEDS ORDERED: ONDANSETRON 4MG ORAL DISINTEGRATING TAB PO PRN (16:10)
[2024-01-10] MEDS: LEVOTHYROXINE 50MCG TABLET (0.05MG) PO SCH (09:41)
[2024-01-12] MEDS: LORazepam 0.5 MG TAB PO SCH (14:46)
[2024-01-17 01:27] LABS: PTH RELATED PEPTIDE 13 pg/mL (11-20)
[2024-01-17] MEDS: LORazepam 0.5 MG TAB PO PRN (16:07)
[2024-01-18] MEDS ORDERED: HYOS125TA PO (14:24)
[2024-01-18] MEDS ORDERED: ONDA-282 PO (14:24)
[2024-01-18] MEDS ORDERED: MORP1SOL SL (14:24)
[2024-01-18] MEDS ORDERED: LEVO25TA5 PO (14:24)
[2024-01-18] MEDS ORDERED: LORazepam PO ×2 (14:24)
[2024-01-19] MEDS: MORPHINE 10MG/0.5ML ORAL CONCENTRATE SOLUTION U/D SL PRN (01:20)
[2024-01-19] MEDS: LEVOTHYROXINE 25MCG TABLET (0.025MG) PO SCH (06:20)
== END 2024-01-19 12:55 | DRG 643 ==
LOC: M ED 11:20 → EDBD 11:20 → M ED INP 13:45 → OBSVTOIN 14:03 → INTOOBSV 14:03 → UNDOADMOB 14:03 → M ED INP 14:03 → M PCU 14:31 → M ED INP 14:31 → M MSPAV 01-04 12:02
PROVIDERS: ADMIT Internal Medicine Nephrology; ATTEND General Practice
DX: E21.0 Primary hyperparathyroidism (principal); G93.41 Metabolic encephalopathy; E87.0 Hyperosmolality and hypernatremia; F02.811 Dementia in other diseases classified elsewhere, unspecified severity, with agitation; E03.9 Hypothyroidism, unspecified; M81.0 Age-related osteoporosis without current pathological fracture; E78.5 Hyperlipidemia, unspecified; R53.1 Weakness; G89.29 Other chronic pain; M54.9 Dorsalgia, unspecified; G25.0 Essential tremor; R62.7 Adult failure to thrive; E87.6 Hypokalemia; D47.2 Monoclonal gammopathy; E86.0 Dehydration; R13.10 Dysphagia, unspecified; G30.9 Alzheimer's disease, unspecified; Z79.82 Long term (current) use of aspirin; Z79.899 Other long term (current) drug therapy; Z88.2 Allergy status to sulfonamides; Z91.040 Latex allergy status; Z91.018 Allergy to other foods; Z98.41 Cataract extraction status, right eye; Z51.5 Encounter for palliative care; Z66 Do not resuscitate

== ENCOUNTER → 2024-06-12 | Outpatient (REF) | payer MEDICARE, OTHER ==
[~2024-06-12] MED LIST changes: -BRIN15DR OU; +BRIN15DR5 OU; +DENO60SY2 SC; +HYOS125TA PO; +LEVO25TA5 PO; +LORazepam PO; +MORP1SOL SL; +ONDA-282 PO; -PROL60SO SC; +VITA200021 PO; +XALA0.007 OU
[2024-06-12 13:56] LABS: BLOOD UREA NITROGEN 23 MG/DL (9-23); CARBON DIOXIDE LEVEL 29 MMOL/L (20-31); CHLORIDE LEVEL 103 MMOL/L (98-107); CREATININE FOR GFR 0.46 MG/DL (0.55-1.30); GLOMERULAR FILTRATION RATE > 90.0 (>32); GLUCOSE, FASTING 81 MG/DL (74-106); POTASSIUM SERUM 4.5 MMOL/L (3.5-5.1); SODIUM LEVEL 140 MMOL/L (136-145)
[2024-06-12 13:58] LABS: TOTAL 25(OH) VITAMIN D 45.6 NG/ML (20.0-100.0)
== END ==
LOC: SKLAB6 12:11
PROVIDERS: ATTEND Internal Medicine
DX: E55.9 Vitamin D deficiency, unspecified (principal); Z79.899 Other long term (current) drug therapy

== ENCOUNTER → 2025-01-16 | Outpatient (REF) | payer MEDICARE, OTHER ==
[~2025-01-16] MED LIST changes: -ASPI-310 PO; +ASPI-730 PO
== END ==
LOC: SKLAB6 10:54
PROVIDERS: ATTEND Family Medicine
DX: Z11.2 Encounter for screening for other bacterial diseases (principal); Z20.818 Contact with and (suspected) exposure to other bacterial communicable diseases